=== PATIENT | female | born 1975 | race Caucasian/White ===

== ENCOUNTER 2019-11-09 21:47 | Emergency (ER) | payer BC, SELFPAY ==
--- NOTE | ~2019-11-09 | XR_ITS ---
EXAMINATION: XR chest 1V portable DATE: 11/09/2019 22:25 INDICATION: Shortness of breath and cough. TECHNIQUE: A single frontal view of the chest was obtained. COMPARISON: Chest 2 views 03/18/2019 FINDINGS: Again seen is mild elevation of right hemidiaphragm. No pleural effusion or pneumothorax. T he heart size is normal. IMPRESSION: 1. No acute cardiopulmonary disease. Reviewed, dictated and finalized at location A.
--- NOTE | 2019-11-09 21:53 | ECG_ITS ---
Measurements Intervals [place] Rate: 99 P: 42 KS: 193 QRS: -17 QRSD: 97 T: 31 QT: 341 QTc: 439 Interpretive Statements SINUS RHYTHM BORDERLINE R WAVE PROGRESSION, ANTERIOR LEADS INFERIOR INFARCT, AGE INDETERMINATE ABNORMAL ECG Electronically Signed On 11-10-2019 7:06:44 CDT by Vargas Mo D.O.
--- NOTE | 2019-11-09 21:58 | ED.SOB ---
HPI - SOB/Dyspnea General Chief Complaint: Shortness of Breath/Dyspnea Stated Complaint: SOB/DIARRHEA/COUGH. ST Time Seen by Provider: 11/09/19 21:52 History of Present Illness HPI Narrative: 44 yo female w/ COPD, Morbid obesity presents by private vehicle for SOB. She says that she has been more short of breath than usual for the past several days. She reports that this happens about once a year due to bronchitis. She says that she only came in because her employer was concerned that she may have COVID-19. She does have mild pain with breathing, but says this is not unusual. No fever, cough, nausea, sick contacts Related Data Allergies Allergy/AdvReac Type Severity Reaction Status Date / Time capsaicin Allergy Severe Difficulty Verified 11/09/19 21:49 Breathing; swelling adhesive Allergy Mild unknown Verified 11/09/19 21:49 prochlorperazine Allergy Mild unknown Verified 11/09/19 21:49 Review of Systems Review of Systems: All systems reviewed & are unremarkable except as noted in HPI and below Constitutional: Constitutional: Denies chills, Denies fever(s) and Denies weakness ENT: Denies sore throat Cardiovascular: Cardiovascular: Reports chest pain and Denies radiating jaw, neck or arm pain Respiratory: Respiratory: Reports dyspnea Gastrointestinal: Gastrointestinal: Denies abdominal pain PMFSH Past Medical History Medical History COPD (chronic obstructive pulmonary disease) Lymphedema Tobacco abuse Surgical History Surgical History Hx of tonsillectomy Family History Family History Father Hypertension Family history of elevated blood lipids Family history of cardiovascular disease Cerebrovascular accident Malignant neoplasm of prostate Sibling Hypertension Family history of coronary artery disease Diabetes mellitus Family history of elevated blood lipids Family history of cardiovascular disease Mother Hypertension Family history of elevated blood lipids Social History Social History Smoking status: Heavy tobacco smoker Second hand tobacco smoke exposure: No Smoking end date: 05/28/09 Alcohol intake: never Exam Const: General: no acute distress, alert and ill appearing Nutritional Appearance: obese morbidly obese Orientation/consciousness: patient oriented x3 HENMT: Head: normal to inspection Resp: Effort & Inspection: tachypneic Auscultation: clear to auscultation bilaterally Cardio: Rate: regular rate Rhythm: regular rhythm Skin: General skin exam: normal color Neuro: General: patient oriented x3, moves all extremities and no focal motor deficits Speech: normal speech Extrem: General: edema bilateral Course Vital Signs Vital signs: Vital Signs Temperature 37.1 C 11/09/19 22:03 Pulse Rate 95 11/09/19 22:03 Respiratory Rate 20 11/09/19 22:03 Blood Pressure 154/90 H 11/09/19 22:03 Pulse Oximetry 96 11/09/19 22:03 Temperature 37.1 C 11/10/19 00:19 Pulse Rate 88 11/10/19 00:46 Respiratory Rate 20 11/10/19 00:46 Blood Pressure 137/83 11/10/19 00:19 Pulse Oximetry 95 11/10/19 00:19 MDM - SOB/Dyspnea MDM Narrative Medical decision making narrative: She becomes significantly short of breath with exertion. O2 saturation stays above 90. No improvement with nebulizer. She says that she does not have any interest in staying in the hospital. COVID test collected. No infiltrate seen on x-ray, although difficult to read due to body habitus. Lab Data Attestation: I reviewed the patient's lab results. Result diagrams: 11/09/19 22:43 11/09/19 22:43 Labs: Lab Results 11/09/19 11/09/19 11/10/19 Range/Units 22:43 22:43 01:52 WBC 12.8 H (4.5-10.0) K/mm3 RBC 4.41
[2019-11-09 22:03] VITALS: BP 154/90; PULSE 95; RESP 20; TEMP 37.1; O2SAT 96
[2019-11-09 22:48] LABS: Basophils Absolute Auto 0.1 K/mm3 (0.0-0.1); Basophils Percent Auto 0.5 % (0.2-1.2); Eosinophils Absolute Auto 0.1 K/mm3 (0-0.3); Eosinophils Percent Auto 1.1 % (0-4.4); Hematocrit 39.4 % (37.0-47.0); Hemoglobin 12.6 g/dL (12.0-15.0); Immature Granulocyte Absolute 0.06 K/mm3 (0.00-0.031); Immature Granulocyte Percent A 0.5 % (0-0.5); Lymphocytes Percent Auto 15.7 % (18.3-44.2); Mean Corpuscular Hemoglobin 28.6 pg (26-34); Mean Corpuscular Volume 89.3 fl (80-100); Mean Platelet Volume 9.6 fl (7.4-10.4); Monocytes Absolute Auto 0.7 K/mm3 (0.1-0.6); Monocytes Percent Auto 5.7 % (2.6-8.5); Neutrophils Absolute Auto 9.8 K/mm3 (1.3-6.7); Neutrophils Percent Auto 76.5 % (45.5-73.1); Platelet Count Result 267 k/mm3 (150-375); Red Blood Count 4.41 M/mm3 (4.2-5.4); Red Cell Distribution Width 13.3 % (11.5-14.5); White Blood Count 12.8 K/mm3 (4.5-10.0)
[2019-11-09 22:59] LABS: Blood Urea Nitrogen 16 mg/dL (7-17); Calcium 9.1 mg/dL (8.4-10.2); Carbon Dioxide 30 mmol/L (22-30); Chloride 101 mmol/L (98-107); Estimated CRCL calculation 166 ml/min; Estimated Glomerular Filt Rate > 60; Glucose 134 mg/dL (65-105); Potassium 3.9 mmol/L (3.4-5.0); Sodium 138 mmol/L (137-145)
[2019-11-09 23:11] LABS: NT Pro B Type Natriuretic Pept 33 PG/ML (5-100); Troponin I < 0.012 ng/mL (0.000-0.034)
[2019-11-10 00:19] VITALS: BP 137/83; PULSE 82; RESP 22; TEMP 37.1; O2SAT 95
[2019-11-10 00:21] VITALS: PULSE 87
[2019-11-10 00:40] VITALS: PULSE 94; RESP 22
[2019-11-10] MEDS: ALBUTEROL SULFATE NEB 2.5 MG/0.5 ML INH 5 MG INHALATION (00:40)
[2019-11-10 00:46] VITALS: PULSE 88; RESP 20
[2019-11-10 11:10] LABS: SARS-CoV-2 RNA PCR Negative
== END 2019-11-10 01:55 | disposition home or self-care (01) ==
PROVIDERS: Emergency Provider Emergency Medicine; PCP Family Medicine
DX: R06.00 Dyspnea, unspecified (principal); Z20.828 Contact with and (suspected) exposure to other viral communicable diseases; E66.01 Morbid (severe) obesity due to excess calories; Z68.45 Body mass index [BMI] 70 or greater, adult; Z87.891 Personal history of nicotine dependence; R94.31 Abnormal electrocardiogram [ECG] [EKG]
CPT/HCPCS: 36415; 71045; 80048; 83880; 84484; 85025; 87635; 93005; 94640; 99284; C9803; U0003

== ENCOUNTER 2019-11-19 13:09 | Outpatient (CLI) | payer BC, SELFPAY ==
--- NOTE | ~2019-11-19 | XR_ITS ---
XR chest 2V DATE: 11/19/2019 13:30 INDICATION: Shortness of breath TECHNIQUE: PA and lateral views COMPARISON: 11/09/2019 portable AP chest 12/08/2009 AP and lateral chest FINDINGS: There is chronic mild elevation of right leaf of the diaphragm. Normal heart size. No hilar or mediastinal enlargement. No pulmonary infiltrate or consolidation, pleural effusion or pulmonary vascular congestion or pneumo thorax. IMPRESSION: No active cardiopulmonary disease Reviewed, dictated and finalized at location A.
== END 2019-11-19 13:10 | disposition home or self-care (01) ==
PROVIDERS: PCP Family Medicine; Visit Provider Physician Assistant
DX: R06.02 Shortness of breath (principal)
CPT/HCPCS: 71046

== ENCOUNTER 2020-01-19 12:47 | Inpatient (IN) | payer BC, SELFPAY ==
--- NOTE | ~2020-01-19 | XR_ITS ---
EXAMINATION: XR hip LT 2V w AP pelvis DATE: 01/19/2020 14:02 INDICATION: Left hip cellulitis TECHNIQUE: Anteroposterior view of the pelvis and anteroposterior and frog-leg lateral views of the l eft hip were obtained. COMPARISON: None. FINDINGS: Alignment is normal. No fracture or suspected avascular necrosis. Mild bilateral hip osteoarthritis. No evident subcutaneous gas. No cortical erosions or periosteal reaction. IMPRESSION: 1. Mild bilateral hip osteoarthritis. Reviewed, dictated and finalized at location A.
[2020-01-19 12:51] VITALS: BP 140/101; PULSE 117; RESP 22; TEMP 37.3; O2SAT 97
[2020-01-19] MEDS: KETOROLAC (*BKC) 60 MG/2 ML VIAL IM (14:12)
--- NOTE | 2020-01-19 14:12 | ED.LOWEXIN ---
HPI - Extremity Injury (Lower) General Chief Complaint: Extremity Injury, Lower Stated Complaint: L HIP PAIN/CELLULITIS Time Seen by Provider: 01/19/20 13:25 Source: patient Mode of arrival: ambulatory Limitations: no limitations History of Present Illness HPI Narrative: This is a 44 year old female that presents to the ER for left hip redness and swelling x 3 days. Associated with fever. She was started on Bactrim and keflex, has only taken one dose due to the nausea and vomiting it caused. Denies decreased ROM. Related Data Home Medications Medication Instructions Recorded Confirmed albuterol sulfate 90 mcg/actuation 1 inhalation INHALATION Q4H 11/12/19 11/12/19 aerosol inhaler fluticasone 250 mcg-salmeterol 50 1 inhalation INHALATION BID 11/12/19 11/12/19 mcg/dose blistr powdr for inhalation spironolactone 50 mg tablet 50 mg PO DAILY 11/12/19 11/12/19 cephalexin [Keflex] 250 mg PO Q12H 01/19/20 Allergies Allergy/AdvReac Type Severity Reaction Status Date / Time capsaicin Allergy Severe Difficulty Verified 11/19/19 12:01 Breathing; swelling adhesive Allergy Mild unknown Verified 11/19/19 12:01 prochlorperazine Allergy Mild unknown Verified 11/19/19 12:01 Review of Systems Review of Systems: Narrative: CONSTITUTIONAL: Reports fever GASTROINTESTINAL: Reports nausea, vomiting SKIN: Reports rash All systems reviewed & are unremarkable except as noted in HPI and below PMFSH Social History Social History (Updated 01/19/20 @ 14:17 by Jada Cummings PA-C) Smoking status: Heavy tobacco smoker Second hand tobacco smoke exposure: No Smoking end date: 05/28/09 Alcohol intake: never Substance use: never Gender identity (if verbalized by the patient): Female Exam Narrative: Exam Narrative: GENERAL: Well-appearing, well-nourished, and in no acute distress. HEAD: Normocephalic, atraumatic. EYES: EOMI. CHEST: Clear to auscultation. No respiratory distress. No wheezes rales or rhonchi HEART: Regular rate and rhythm. No murmur heard. Normal peripheral pulses. BACK: No midline spinal tenderness EXTREMITIES: Normal range of motion. No edema. SKIN: Warm, dry. Moderate edema and erythema overlying the left hip/upper thigh laterally. No central fluctuance to suggest abscess NEURO: No focal deficits. Alert and oriented x3. PSYCH: Normal mood and affect Course Consultations Consultation #1: Spoke with hospitalist about patient and workup who accepts admission Date: 01/19/20 Time: 16:59 Vital Signs Vital signs: Vital Signs Temperature 99.2 F 01/19/20 12:51 Pulse Rate 117 H 01/19/20 12:51 Respiratory Rate 22 H 01/19/20 12:51 Blood Pressure 140/101 H 01/19/20 12:51 Pulse Oximetry 97 01/19/20 12:51 Temperature 99.2 F 01/19/20 12:51 Pulse Rate 98 01/19/20 15:44 Respiratory Rate 18 01/19/20 15:44 Blood Pressure 159/99 H 01/19/20 15:44 Pulse Oximetry 100 01/19/20 15:44 MDM - Extremity Injury (Lower) MDM Narrative Medical decision making narrative: Patient presents to the ER for cellulitis of the left thigh. Afebrile upon arrival. Was tachycardic which improved with IV fluids. CBC with leukocytosis to 15. ESR and CRP are elevated. Lactic acid is normal. Hemoglobin A1C is normal. No central fluctuance to suggest abscess. Patient given IV fluids and first dose of antibiotic in the ED. Blood cultures sent. Will be admitted for further IV antibiotics. Spoke with hospitalist about patient and workup who accepts admission Lab Data Attestation: I reviewed the patient's lab results. Result diagrams: 01/19/20 14:18 01/19/20 14:18 Labs: Lab Results 01/19/20 01/19/20 01/19/20 Range/Units 14:15 14:18 14:18 WBC 15.0 H (4.5-10.0) K/mm3 RBC 3.99 L (4.2-5.4) M/mm3 Hgb 11.4 L (12.0-15.0) g/dL Hct 35.1 L (37.0-47.0) % MCV 88.0 (80-100) fl MCH 28.6 (26-34) pg MCHC 32.5 (32-36) g/dl RDW 14.6 H (11.5-14.
[2020-01-19 14:31] LABS: Basophils Absolute Auto 0.1 K/mm3 (0.0-0.1); Basophils Percent Auto 0.4 % (0.2-1.2); Eosinophils Percent Auto 0.1 % (0-4.4); Hematocrit 35.1 % (37.0-47.0); Hemoglobin 11.4 g/dL (12.0-15.0); Immature Granulocyte Absolute 0.15 K/mm3 (0.00-0.031); Lymphocytes Absolute Auto 1.09 K/mm3 (0.9-3.2); Lymphocytes Percent Auto 7.3 % (18.3-44.2); Mean Corpuscular HGB Conc 32.5 g/dl (32-36); Mean Corpuscular Hemoglobin 28.6 pg (26-34); Mean Platelet Volume 10.4 fl (7.4-10.4); Monocytes Absolute Auto 1.1 K/mm3 (0.1-0.6); Monocytes Percent Auto 7.5 % (2.6-8.5); Neutrophils Absolute Auto 12.6 K/mm3 (1.3-6.7); Neutrophils Percent Auto 83.7 % (45.5-73.1); Platelet Count Result 207 k/mm3 (150-375); Red Blood Count 3.99 M/mm3 (4.2-5.4); Red Cell Distribution Width 14.6 % (11.5-14.5)
[2020-01-19 14:41] LABS: Lactic Acid Reflex 1.1 mmol/L (0.7-2.1)
[2020-01-19 15:01] LABS: Anion Gap 7 mmol/L (8-16); Blood Urea Nitrogen 8 mg/dL (7-17); Carbon Dioxide 30 mmol/L (22-30); Chloride 100 mmol/L (98-107); Erythrocyte Sedimentation Rate 96 mm/hr (0-20); Estimated CRCL calculation 149 ml/min; Estimated Glomerular Filt Rate > 60; Glucose 130 mg/dL (65-105); Potassium 3.9 mmol/L (3.4-5.0); Sodium 137 mmol/L (137-145)
[2020-01-19 15:42] LABS: Hemoglobin A1C 5.7 % (<5.7)
[2020-01-19 15:44] VITALS: BP 159/99; PULSE 98; RESP 18; O2SAT 100
[2020-01-19] MEDS: SODIUM CHLORIDE 0.9% IV 1,000 ML 999 ML IV CONT (15:46)
[2020-01-19 15:56] LABS: CRP 34.1 mg/dL (<1.0)
[2020-01-19 19:18] VITALS: BP 118/75; PULSE 78; RESP 16; O2SAT 100
--- NOTE | 2020-01-19 19:19 | PC.NURSE ---
REPORT TO VIGNESH FRIEDMAN AT THIS TIME. HE HAS ASSUMED PT CARE.
--- NOTE | 2020-01-19 19:30 | PM.IMHP ---
H&P: HPI History of Present Illness Date/Time: 01/19/20 19:30 Chief complaint: Left thigh infection. Narrative: Erin Mccann is a 44-year-old female smoker with morbid obesity, obstructive sleep apnea, COPD, and chronic lipedema and lymphedema who presented to the emergency department earlier today via private vehicle from home for evaluation of a left thigh infection. On Sunday she began feeling poorly while at work, and later in the evening she developed chills, rigors, and fever up to 102.9?. Some time that afternoon she noticed that the left lateral thigh seemed a bit sore, and when she woke on Sunday she had a large erythematous and edematous patch on the left thigh that was exquisitely tender to even light touch. She has also had nausea and vomiting for the past couple of days. She spoke with her primary care provider via phone last night and was prescribed Bactrim and Keflex, of which she has taken 1 dose of each. Today she went to see her primary doctor in the office, and was referred to the emergency department. She continues to have exquisite pain in the area with no significant alleviating factors. Her nausea and vomiting have improved. She has no history of multidrug resistant organisms. She denies injury and trauma to the area. Review of Systems Review of Systems: Narrative: Twelve systems were reviewed with pertinent positives and negatives as per HPI. She has a chronic cough that she attributes to her COPD. She cannot afford her inhalers but does have a nebulizer that she will use if needed. It sounds as though she gets short of breath even with minimal movement, which she attributes to her weight. She admits that she avoids doing hardly anything as she does not like to get up due to shortness of breath. She frequently wheezes and occasionally has a cough. She wears her CPAP at nighttime. She has chronic lower extremity edema, lymphedema, and lipedema. She was referred to [facility] after an EKG done as an outpatient showed evidence of possible old infarct however she did not go to the appointment. With further questioning, it sounds as though she will occasionally get chest pains but she blows these off and it does not seem as though she is interested in having a workup for that. No diarrhea or dysuria. No history of DVT. Except as documented, all other systems were reviewed and are negative. 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 Surgical History Surgical History (Updated 01/19/20 @ 22:33 by Hilda Cano PA-C) History of tonsillectomy Family History Family History Father Hypertension Family history of elevated blood lipids Family history of cardiovascular disease Cerebrovascular accident Malignant neoplasm of prostate Sibling Hypertension Family history of coronary artery disease Diabetes mellitus Family history of elevated blood lipids Family history of cardiovascular disease Mother Hypertension Family history of elevated blood lipids Social History Social History (Updated 01/19/20 @ 22:35 by Hilda Cano PA-C) Social History: Surrogate decision maker: Daria Mccann, . Code status: Full code. Smoking packs per day: 3 Smoking cigarettes per day: 60.0 Years smoked: 30 Smoking pack-years: 90.00 Smoking status: Current every day smoker Tobacco type: cigarettes Second hand tobacco smoke exposure: No Additional smoking assessment comments: Up to 3 ppd, now about 1.5 ppd on Chantix as of 01/19/2020. Alcohol intake: current Alcohol use details:
[2020-01-19 20:57] VITALS: BMI 80.8
[2020-01-19 20:58] VITALS: BP 145/83; PULSE 93; RESP 20; TEMP 37.4; O2SAT 97
--- NOTE | 2020-01-19 21:12 | ADMGEN ---
This patient, Erin Mccann, was admitted to Medical [facility]- at 2039. Patient/family oriented to hospital policies and general routines including ID bracelet, bed and alarms, visiting hours, pain management, procedures, bathroom and other care routines, personal items, smoking policy, room service/diet, and visiting hours. Valuables list has been completed. Information on how to activate the Rapid Response Team has been discussed. Patient/Family are encouraged to report perceived risks to care and to ask questions if they do not understand what they are told or what they should do.
[2020-01-19] MEDS: ACETAMINOPHEN 325 MG TABLET 650 MG PO (23:32)
[2020-01-19 23:51] VITALS: BP 130/65; PULSE 99; RESP 24; TEMP 37.6; O2SAT 94
[2020-01-19 23:55] VITALS: PULSE 94; RESP 24; O2SAT 97
[2020-01-20] MEDS: diphenhydrAMINE HCl CAP 25 MG CAPSULE 50 MG PO ×3 (00:21→23:03)
[2020-01-20] MEDS: ACETAMINOPHEN 325 MG TABLET 650 MG PO (05:54)
[2020-01-20 06:00] VITALS: BP 138/75; PULSE 81; RESP 22; TEMP 36.9; O2SAT 98
[2020-01-20 06:08] LABS: Hematocrit 32.2 % (37.0-47.0); Hemoglobin 10.3 g/dL (12.0-15.0); Mean Corpuscular Hemoglobin 28.4 pg (26-34); Mean Corpuscular Volume 88.7 fl (80-100); Mean Platelet Volume 10.4 fl (7.4-10.4); Platelet Count Result 213 k/mm3 (150-375); Red Blood Count 3.63 M/mm3 (4.2-5.4); Red Cell Distribution Width 14.6 % (11.5-14.5); White Blood Count 13.2 K/mm3 (4.5-10.0)
[2020-01-20 06:18] LABS: Anion Gap 8 mmol/L (8-16); Blood Urea Nitrogen 10 mg/dL (7-17); Carbon Dioxide 26 mmol/L (22-30); Chloride 100 mmol/L (98-107); Estimated CRCL calculation 167 ml/min; Estimated Glomerular Filt Rate > 60; Glucose 127 mg/dL (65-105); Potassium 3.2 mmol/L (3.4-5.0); Sodium 134 mmol/L (137-145)
[2020-01-20 09:11] VITALS: PULSE 84; RESP 22; O2SAT 96
[2020-01-20] MEDS: ENOXAPARIN 40 MG/0.4 ML SYRINGE SUB-Q (09:11)
[2020-01-20] MEDS: POTASSIUM CHLORIDE 20 MEQ TABLET 40 MEQ PO (09:11)
--- NOTE | 2020-01-20 09:58 | PM.IMPN ---
Progress Note: A&P Assessment and Plan (1) Sepsis: Qualifiers: Sepsis acute organ dysfunction status: without acute organ dysfunction Sepsis type: sepsis due to unspecified organism Qualified Code(s): A41.9 - Sepsis, unspecified organism Code(s): A41.9 - Sepsis, unspecified organism Status: Acute Assessment and Plan: Present on admission and supported by fever and leukocytosis in the setting of infection. Blood cultures pending with no growth to date. (2) Cellulitis of left thigh: Code(s): L03.116 - Cellulitis of left lower limb Status: Acute Assessment and Plan: Continue IV Ancef and vancomycin. She had mild hypersensitivity reaction to vancomycin last evening so today we pre-treated with Benadryl and slowed down rate of vanc infusion - no further rash or itching today. (3) Chronic obstructive pulmonary disease: Code(s): J44.9 - Chronic obstructive pulmonary disease, unspecified Status: Acute Assessment and Plan: Supportive care with PRN albuterol. (4) Obstructive sleep apnea on CPAP: Code(s): G47.33 - Obstructive sleep apnea (adult) (pediatric); Z99.89 - Dependence on other enabling machines and devices Status: Acute Assessment and Plan: CPAP. (5) Morbid obesity with BMI of 70 and over, adult: Code(s): E66.01 - Morbid (severe) obesity due to excess calories; Z68.45 - Body mass index (BMI) 70 or greater, adult Status: Acute Assessment and Plan: Healthy lifestyle is encouraged including attempts at weight loss. (6) Tobacco abuse: Code(s): Z72.0 - Tobacco use Status: Acute Assessment and Plan: Smoking cessation encouraged. Subjective Date/time seen: 01/20/20 09:30 Exam Narrative: Exam Narrative: General: Morbidly obese female resting sitting up in bed in no acute distress. HEENT: Normocephalic, EOMI, oral mucosa tacky. Cardiovascular: Distant heart sounds due to body habitus but rate and rhythm sound to be regular. Respiratory: Diminished breath sounds KENY due to body habitus. Non-labored breathing. Abdomen: Protuberant but soft, non-tender, non-distended, bowel sounds present. Skin: Warm and dry. Well-demarcated, large and irregularly shaped patch on the left lateral thigh which is erythematous, indurated, hot, and exquisitely tender to even light touch. No open wound, abscess, or obvious fluctuance. Extremities: Radial pulses 2+KENY. Difficulty palpating dorsal pulses due to size but feet are warm and well-perfused. Lower extremity edema ++ patient reports is at baseline due to lipedema and lymphedema. Neuro: No focal neurological deficits. Speech is clear. Objective Data Vital Signs Vital Signs: Last Vital Signs Temp 98.7 F 01/20/20 14:00 Pulse 88 01/20/20 14:00 Resp 16 01/20/20 14:00 BP 119/68 01/20/20 14:00 Pulse Ox 98 01/20/20 14:00 Intake/Output Intake/Output: Intake & Output 01/17/20 01/18/20 01/19/20 01/20/20 23:59 23:59 23:59 23:59 Intake Total 1100 575 Output Total 350 Balance 1100 225 Meds/Results Medications: Active Medications Generic Name Dose Route Start Last Admin Trade Name Freq PRN Reason Stop Dose Admin Acetaminophen 1,000 mg 01/20/20 09:55 Tylenol Tablet PO Q6H PRN Mild Pain (1-3) or Fever Albuterol 2.5 mg 01/20/20 02:34 Albuterol Sulf Neb 2.5 Mg/3 Ml INHALATION 02/19/20 02:35 Q6H PRN Shortness Of Breath Or Wheezing Diphenhydramine HCl 50 mg 01/20/20 10:30 Benadryl Cap PO Q12H NESS Enoxaparin Sodium 40 mg 01/20/20 09:00 01/20/20 09:11 Lovenox SUB-Q 40 mg DAILY NESS Administration Cefazolin Sodium 1 gm i
[2020-01-20 14:00] VITALS: BP 119/68; PULSE 88; RESP 16; TEMP 37.1; O2SAT 98
[2020-01-20 22:00] VITALS: BP 148/70; PULSE 95; RESP 22; TEMP 37.3; O2SAT 97
[2020-01-20] MEDS: ACETAMINOPHEN 325 MG TABLET 1000 MG PO (22:05)
[2020-01-21 06:00] VITALS: BP 149/78; PULSE 78; RESP 20; TEMP 36.7; O2SAT 96
[2020-01-21 06:35] LABS: Basophils Absolute Auto 0.1 K/mm3 (0.0-0.1); Basophils Percent Auto 0.7 % (0.2-1.2); Eosinophils Absolute Auto 0.1 K/mm3 (0-0.3); Eosinophils Percent Auto 0.7 % (0-4.4); Hematocrit 31.7 % (37.0-47.0); Immature Granulocyte Absolute 0.19 K/mm3 (0.00-0.031); Immature Granulocyte Percent A 1.7 % (0-0.5); Lymphocytes Absolute Auto 1.38 K/mm3 (0.9-3.2); Lymphocytes Percent Auto 12.5 % (18.3-44.2); Mean Corpuscular HGB Conc 31.5 g/dl (32-36); Mean Corpuscular Hemoglobin 28.3 pg (26-34); Mean Corpuscular Volume 89.8 fl (80-100); Mean Platelet Volume 10.3 fl (7.4-10.4); Monocytes Absolute Auto 1.1 K/mm3 (0.1-0.6); Monocytes Percent Auto 9.5 % (2.6-8.5); Neutrophils Absolute Auto 8.3 K/mm3 (1.3-6.7); Neutrophils Percent Auto 74.9 % (45.5-73.1); Platelet Count Result 226 k/mm3 (150-375); Red Blood Count 3.53 M/mm3 (4.2-5.4); Red Cell Distribution Width 14.8 % (11.5-14.5); White Blood Count 11.1 K/mm3 (4.5-10.0)
[2020-01-21 06:54] LABS: Anion Gap 6 mmol/L (8-16); Blood Urea Nitrogen 8 mg/dL (7-17); Calcium 8.3 mg/dL (8.4-10.2); Carbon Dioxide 29 mmol/L (22-30); Chloride 102 mmol/L (98-107); Estimated CRCL calculation 167 ml/min; Estimated Glomerular Filt Rate > 60; Glucose 142 mg/dL (65-105); Potassium 3.6 mmol/L (3.4-5.0); Sodium 137 mmol/L (137-145)
[2020-01-21] MEDS: ACETAMINOPHEN 500 MG TABLET 1000 MG PO ×2 (07:48→18:18)
[2020-01-21 08:00] VITALS: PULSE 78; RESP 20; O2SAT 96
[2020-01-21] MEDS: ENOXAPARIN 40 MG/0.4 ML SYRINGE SUB-Q (08:31)
--- NOTE | 2020-01-21 12:39 | PM.IMPN ---
Progress Note: A&P Assessment and Plan (1) Cellulitis of left thigh: Code(s): L03.116 - Cellulitis of left lower limb Status: Acute Assessment and Plan: Was being treated with IV Ancef and vancomycin. She had a hypersensitivity reaction to vancomycin even with benadryl and slowing rate. Little improvement. Will switch to IV ceftaroline this afternoon and monitor symptoms. (2) Sepsis: Qualifiers: Sepsis acute organ dysfunction status: without acute organ dysfunction Sepsis type: sepsis due to unspecified organism Qualified Code(s): A41.9 - Sepsis, unspecified organism Code(s): A41.9 - Sepsis, unspecified organism Status: Acute Assessment and Plan: Present on admission and supported by fever and leukocytosis in the setting of infection. Blood cultures pending with no growth to date. (3) Chronic obstructive pulmonary disease: Qualifiers: COPD type: unspecified COPD Qualified Code(s): J44.9 - Chronic obstructive pulmonary disease, unspecified Code(s): J44.9 - Chronic obstructive pulmonary disease, unspecified Status: Chronic Assessment and Plan: Supportive care with PRN albuterol. (4) Obstructive sleep apnea on CPAP: Code(s): G47.33 - Obstructive sleep apnea (adult) (pediatric); Z99.89 - Dependence on other enabling machines and devices Status: Chronic Assessment and Plan: CPAP. (5) Morbid obesity with BMI of 70 and over, adult: Code(s): E66.01 - Morbid (severe) obesity due to excess calories; Z68.45 - Body mass index (BMI) 70 or greater, adult Status: Chronic Assessment and Plan: Healthy lifestyle is encouraged including attempts at weight loss. (6) Tobacco abuse: Code(s): Z72.0 - Tobacco use Status: Chronic Assessment and Plan: Smoking cessation encouraged. Subjective Date/time seen: 01/21/20 1130 Interval history: Ms. Mccann is a 44yo F admitted for significant cellulitis to the left thigh. She notes no improvement in the pain/swelling/redness today. She denies chest pain. She admits feeling short of breath with standing and walking which she attributes to her weight and is unchanged. She is tolerating oral intake without nausea or vomiting. Review of Systems Review of Systems: Narrative: Twelve systems were reviewed with pertinent positives and negatives as per HPI. Exam Narrative: Exam Narrative: General: Morbidly obese female resting sitting up in bed in no acute distress. HEENT: Normocephalic, EOMI, oral mucosa tacky. Cardiovascular: Distant heart sounds due to body habitus but rate and rhythm sound regular. Respiratory: Diminished breath sounds KENY due to body habitus. Non-labored breathing. Abdomen: Protuberant but soft, non-tender, non-distended, bowel sounds present. Skin: Warm and dry. Well-demarcated, large and irregularly shaped patch on the left lateral thigh which is erythematous, indurated, hot, and exquisitely tender to even light touch. No open wound, abscess, or obvious fluctuance. Erythema is within the pen markings from yesterday but not much improved. More indurated than yesterday. Extremities: Radial pulses 2+KENY. Difficulty palpating dorsal pulses but feet are warm and well-perfused. Lower extremity edema ++ patient reports is at baseline due to lipedema and lymphedema, in fact she notes are a bit less swollen than her normal. Neuro: No focal neurological deficits. Speech is clear. Objective Data Vital Signs Vital Signs: Vital Signs - 24 hr 01/20/20 14:00 01/20/20 22:00 01/21/20 06:00 Temperature 98.7 F 99.1 F 98.0 F Pulse Rate 88 95 78 Respiratory Rate 16 22 H 20 Blood Pressure 119/6
[2020-01-21 14:29] VITALS: BP 124/77; PULSE 72; RESP 14; TEMP 36.7; O2SAT 98
[2020-01-21 22:00] VITALS: BP 139/78; PULSE 79; RESP 20; TEMP 36.8; O2SAT 96
[2020-01-22 05:29] VITALS: BP 139/78; PULSE 90; RESP 22; TEMP 36.6; O2SAT 92
[2020-01-22] MEDS: ACETAMINOPHEN 500 MG TABLET 1000 MG PO ×2 (05:36→16:41)
[2020-01-22 08:04] LABS: Estimated CRCL calculation 192 ml/min; Estimated Glomerular Filt Rate > 60
[2020-01-22 08:43] VITALS: PULSE 94; RESP 22; O2SAT 91
[2020-01-22] MEDS: ENOXAPARIN 40 MG/0.4 ML SYRINGE SUB-Q (08:43)
--- NOTE | 2020-01-22 09:45 | PM.IMPN ---
Progress Note: A&P Assessment and Plan (1) Cellulitis of left thigh: Code(s): L03.116 - Cellulitis of left lower limb Status: Acute Assessment and Plan: Was previously treated with IV Ancef and vancomycin. She had a hypersensitivity reaction to vancomycin even with benadryl and slowing rate. Switched to IV ceftaroline yesterday (day 2). Not responding well to IV abx - appreciate ID consultation. I have encouraged her to try positioning herself on her right side to help offload pressure from the site which may help promote healing. (2) Sepsis: Qualifiers: Sepsis acute organ dysfunction status: without acute organ dysfunction Sepsis type: sepsis due to unspecified organism Qualified Code(s): A41.9 - Sepsis, unspecified organism Code(s): A41.9 - Sepsis, unspecified organism Status: Acute Assessment and Plan: Present on admission and supported by fever and leukocytosis in the setting of infection. Blood cultures pending with no growth to date. (3) Chronic obstructive pulmonary disease: Qualifiers: COPD type: unspecified COPD Qualified Code(s): J44.9 - Chronic obstructive pulmonary disease, unspecified Code(s): J44.9 - Chronic obstructive pulmonary disease, unspecified Status: Chronic Assessment and Plan: Supportive care with PRN albuterol. No respiratory distress. (4) Obstructive sleep apnea on CPAP: Code(s): G47.33 - Obstructive sleep apnea (adult) (pediatric); Z99.89 - Dependence on other enabling machines and devices Status: Chronic Assessment and Plan: CPAP. (5) Morbid obesity with BMI of 70 and over, adult: Code(s): E66.01 - Morbid (severe) obesity due to excess calories; Z68.45 - Body mass index (BMI) 70 or greater, adult Status: Chronic Assessment and Plan: Healthy lifestyle is encouraged including attempts at weight loss. (6) Tobacco abuse: Code(s): Z72.0 - Tobacco use Status: Chronic Assessment and Plan: Smoking cessation encouraged. (7) Lymphedema: Code(s): I89.0 - Lymphedema, not elsewhere classified Status: Chronic Assessment and Plan: She experiences chronic lymphedema and lipedema for which she has followed with specialists in the past. She notes she does not go to lymphedema clinic or do her wraps any longer. Subjective Date/time seen: 01/22/20 09:30 Interval history: Ms. Mccann is a 44yo F admitted for significant cellulitis to the left thigh. Feeling the same as last 2 days except today she notes increased difficulty ambulating compared to yesterday, due to pain. She notes no improvement in the pain/swelling/redness today. She denies chest pain. She admits feeling short of breath with standing and walking which she attributes to her weight and is unchanged. She is tolerating oral intake without nausea or vomiting. Review of Systems Review of Systems: Narrative: Twelve systems were reviewed with pertinent positives and negatives as per HPI. Exam Narrative: Exam Narrative: General: Morbidly obese female resting sitting up in bed in no acute distress. HEENT: Normocephalic, EOMI, oral mucosa tacky. Cardiovascular: Distant heart sounds due to body habitus but rate and rhythm sound regular. Respiratory: Clear to auscultation anteriorly KENY. Non-labored breathing. Abdomen: Protuberant but soft, non-tender, non-distended, bowel sounds present. Skin: Warm and dry. Well-demarcated, large and irregularly shaped patch on the proximal left lateral thigh which is erythematous, indurated, hot, and exquisitely tender to even light touch. No open wound, abscess, o
[2020-01-22 14:00] VITALS: BP 132/74; PULSE 85; RESP 20; TEMP 36.2; O2SAT 97
[2020-01-22 21:50] VITALS: PULSE 87; O2SAT 96
[2020-01-22 22:46] VITALS: BP 151/89; PULSE 89; RESP 20; TEMP 36.6; O2SAT 97
[2020-01-23 04:18] VITALS: BP 149/88; PULSE 100; RESP 19; TEMP 36.9; O2SAT 95
[2020-01-23] MEDS: ACETAMINOPHEN 500 MG TABLET 1000 MG PO ×2 (04:27→16:37)
[2020-01-23 07:00] LABS: Basophils Absolute Auto 0.1 K/mm3 (0.0-0.1); Eosinophils Absolute Auto 0.1 K/mm3 (0-0.3); Hematocrit 32.8 % (37.0-47.0); Hemoglobin 10.2 g/dL (12.0-15.0); Immature Granulocyte Absolute 0.73 K/mm3 (0.00-0.031); Immature Granulocyte Percent A 6.1 % (0-0.5); Lymphocytes Absolute Auto 1.45 K/mm3 (0.9-3.2); Lymphocytes Percent Auto 12.2 % (18.3-44.2); Mean Corpuscular HGB Conc 31.1 g/dl (32-36); Mean Corpuscular Hemoglobin 27.7 pg (26-34); Mean Corpuscular Volume 89.1 fl (80-100); Monocytes Absolute Auto 1.1 K/mm3 (0.1-0.6); Monocytes Percent Auto 9.2 % (2.6-8.5); Neutrophils Absolute Auto 8.4 K/mm3 (1.3-6.7); Neutrophils Percent Auto 70.5 % (45.5-73.1); Platelet Count Result 296 k/mm3 (150-375); Red Blood Count 3.68 M/mm3 (4.2-5.4); Red Cell Distribution Width 14.8 % (11.5-14.5); White Blood Count 11.9 K/mm3 (4.5-10.0)
[2020-01-23] MEDS: ENOXAPARIN 40 MG/0.4 ML SYRINGE SUB-Q (08:40)
[2020-01-23 10:09] LABS: Alanine Aminotransferase 23 U/L (4-35); Albumin Level 3.6 g/dL (3.5-5.1); Alkaline Phosphatase 93 U/L (38-126); Anion Gap 9 mmol/L (8-16); Aspartate Amino Transferase 24 U/L (14-36); Bilirubin,Total 0.4 mg/dL (0.2-1.3); Blood Urea Nitrogen 9 mg/dL (7-17); Calcium 8.7 mg/dL (8.4-10.2); Carbon Dioxide 29 mmol/L (22-30); Chloride 100 mmol/L (98-107); Estimated CRCL calculation 167 ml/min; Estimated Glomerular Filt Rate > 60; Glucose 178 mg/dL (65-105); Magnesium 2.1 mg/dL (1.6-2.3); Sodium 138 mmol/L (137-145)
--- NOTE | 2020-01-23 13:44 | PM.IMPN ---
Progress Note: A&P Assessment and Plan (1) Cellulitis of left thigh: Code(s): L03.116 - Cellulitis of left lower limb Status: Acute Assessment and Plan: Was previously treated with IV Ancef and vancomycin. She had a hypersensitivity reaction to vancomycin even with benadryl and slowing rate. Switched to IV ceftaroline (day 3). Not responding as well as epected to IV abx - appreciate ID consultation. I have encouraged her to try positioning herself on her right side to help offload pressure from the site which may help promote healing. There are two fluid-filled areas now, can collect wound culture if these would spontaneously drain. (2) Sepsis: Qualifiers: Sepsis acute organ dysfunction status: without acute organ dysfunction Sepsis type: sepsis due to unspecified organism Qualified Code(s): A41.9 - Sepsis, unspecified organism Code(s): A41.9 - Sepsis, unspecified organism Status: Acute Assessment and Plan: Present on admission and supported by fever and leukocytosis in the setting of infection. Blood cultures pending with no growth to date. (3) Chronic obstructive pulmonary disease: Qualifiers: COPD type: unspecified COPD Qualified Code(s): J44.9 - Chronic obstructive pulmonary disease, unspecified Code(s): J44.9 - Chronic obstructive pulmonary disease, unspecified Status: Chronic Assessment and Plan: Supportive care with PRN albuterol. No respiratory distress. (4) Obstructive sleep apnea on CPAP: Code(s): G47.33 - Obstructive sleep apnea (adult) (pediatric); Z99.89 - Dependence on other enabling machines and devices Status: Chronic Assessment and Plan: CPAP. (5) Morbid obesity with BMI of 70 and over, adult: Code(s): E66.01 - Morbid (severe) obesity due to excess calories; Z68.45 - Body mass index (BMI) 70 or greater, adult Status: Chronic Assessment and Plan: Healthy lifestyle is encouraged including attempts at weight loss. (6) Tobacco abuse: Code(s): Z72.0 - Tobacco use Status: Chronic Assessment and Plan: Smoking cessation encouraged. (7) Lymphedema: Code(s): I89.0 - Lymphedema, not elsewhere classified Status: Chronic Assessment and Plan: She experiences chronic lymphedema and lipedema for which she has followed with specialists in the past. She notes she does not go to lymphedema clinic or do her wraps any longer. Subjective Date/time seen: 01/23/20 1245 Interval history: Ms. Mccann is a 44yo F admitted for cellulitis to the left thigh. Feels about the same, not much improvement. New today are some fluid-filled areas to the cellulitic region. Her pain is the same. She notes a cough today, nonproductive. She denies chest pain. She admits feeling short of breath with standing and walking which she attributes to her weight and is unchanged. She is tolerating oral intake without nausea or vomiting. Exam Narrative: Exam Narrative: General: Morbidly obese female resting sitting up in bedside chair in no acute distress. HEENT: Normocephalic, EOMI, oral mucosa moist. Cardiovascular: Distant heart sounds due to body habitus but rate and rhythm sound regular. Respiratory: Clear to auscultation anteriorly KENY. Non-labored breathing. Abdomen: Protuberant but soft, non-tender, non-distended, bowel sounds present. Skin: Warm and dry. Well-demarcated, large and irregularly shaped patch on the proximal left lateral thigh which is erythematous, indurated, hot, and exquisitely tender to even light touch. Slightly less red than days prior. 2 new fluid-filled blisters. Dustin
[2020-01-23 14:00] VITALS: BP 147/96; PULSE 84; RESP 18; TEMP 37.1; O2SAT 96
--- NOTE | 2020-01-23 18:23 | WPDINFPN2 ---
Progress Note: A&P Additional Plan Patient was seen in consult dictated. Thank you. Subjective Date/time seen: 01/23/20 18:23 Objective Data Vital Signs Vital Signs: Vital Signs - 24 hr 01/22/20 21:50 01/22/20 22:46 01/23/20 04:18 Temperature 36.6 C 36.9 C Pulse Rate 87 89 100 Respiratory Rate 20 19 Blood Pressure 151/89 H 149/88 H Pulse Oximetry 96 97 95 Intake/Output Intake/Output: Intake & Output 01/20/20 01/21/20 01/22/20 01/23/20 23:59 23:59 23:59 23:59 Intake Total 2765 3015 2180 1732 Output Total 350 600 Balance 2415 2415 2180 1732 Meds/Results Medications: Active Medications Generic Name Dose Route Start Last Admin Trade Name Freq PRN Reason Stop Dose Admin Acetaminophen 1,000 mg 01/20/20 22:43 01/23/20 16:37 Tylenol Tablet PO 1,000 mg Q6H PRN Administration Mild Pain (1-3) or Fever Albuterol 2.5 mg 01/20/20 02:34 Albuterol Sulf Neb 2.5 Mg/3 Ml INHALATION 02/19/20 02:35 Q6H PRN Shortness Of Breath Or Wheezing Benzonatate 100 mg 01/23/20 13:45 Tessalon Perles PO TID PRN Cough Enoxaparin Sodium 40 mg 01/20/20 09:00 01/23/20 08:40 Lovenox SUB-Q 40 mg DAILY NESS Administration Ceftaroline Fosamil 600 mg in 50 mls @ 50 mls/hr 01/21/20 12:15 01/23/20 09:36 Teflaro 600 Mg/D5w 50 Ml IVPB Infused Q12HR NESS Infusion Radiology Results: ITS Impressions Hip/Pelvis X-Ray 01/19/20 14:12 IMPRESSION: 1. Mild bilateral hip osteoarthritis. Labs Labs: Laboratory Results - last 24 hr 01/23/20 01/23/20 06:22 09:29 WBC 11.9 H RBC 3.68 L Hgb 10.2 L Hct 32.8 L MCV 89.1 MCH 27.7 MCHC 31.1 L RDW 14.8 H Plt Count 296 MPV 10.0 Immature Gran % (Auto) 6.1 H Neut % (Auto) 70.5 Lymph % (Auto) 12.2 L Kleberg % (Auto) 9.2 H Eos % (Auto) 1.0 Baso % (Auto) 1.0 Lymph # (Auto) 1.45 Kleberg # (Auto) 1.1 H Eos # (Auto) 0.1 Baso # (Auto) 0.1 Abs Immat Gran (auto) 0.73 H Absolute Neuts (auto) 8.4 H Absolute Nucleated RBC 0.0 Nucleated RBC % 0.0 Sodium 138 Potassium 4.0 Chloride 100 Carbon Dioxide 29 Anion Gap 9 BUN 9 Creatinine 0.70 Estim Creat Clear Calc 167 Estimated GFR > 60 Glucose 178 H Calcium 8.7 Magnesium 2.1 Total Bilirubin 0.4 AST 24 ALT 23 Alkaline Phosphatase 93 Total Protein 7.0 Albumin 3.6
[2020-01-23 21:13] VITALS: BP 145/84; PULSE 79; RESP 16; TEMP 36.6; O2SAT 98
[2020-01-23 23:15] VITALS: PULSE 83; O2SAT 98
--- NOTE | 2020-01-24 00:21 | CONS_ITS ---
DATE OF CONSULTATION: 01/23/2020 REQUESTING PHYSICIAN: Michael Chapman M.D. REASON FOR CONSULTATION: Left thigh cellulitis, slow improvement. HISTORY OF PRESENT ILLNESS: This is a 44-year-old female, who is morbidly obese with history of tobacco abuse disorder, COPD, obstructive sleep apnea, chronic bilateral lower extremity lymphedema, presented to the emergency room with approximately 2-3 days history of progressive fever and chills with left thigh induration. Apparently on last Sunday, she felt like she is coming down with the flu associated with chills and rigors and nausea and vomiting. By Sunday, she was seen in the emergency room with a temperature of up to 102 and was found to have left lateral thigh cellulitis with a central area of induration. She was started on vancomycin and developed a rash and subsequently switched to ceftaroline. Prior to admission, she was tried on oral antibiotics of Keflex and Bactrim, which she took 1 dose prior to coming to the hospital. I was requested to see her for further antibiotic management. The patient is currently on ceftaroline. PAST MEDICAL HISTORY: Chronic obstructive pulmonary lung disease, Ellen-Danlos syndrome, lymphedema, morbidly obese with BMI over 70, obstructive sleep apnea, tobacco abuse disorder. PAST SURGICAL HISTORY: Tonsillectomy. FAMILY HISTORY: Positive for hypertension. REVIEW OF SYSTEMS: Twelve system was reviewed with pertinent positive as per HPI. MEDICATIONS: Medications at home: 1. Albuterol. 2. Spironolactone. 3. Cephalexin. 4. Bactrim. Medication in the hospital: She is currently on, 1. Ceftaroline day #3. 2. Enoxaparin. 3. Albuterol. 4. Tylenol. ALLERGIES: SHE IS ALLERGIC TO ADHESIVES, CAPSAICIN, AND PROCHLORPERAZINE. PHYSICAL EXAMINATION: VITAL SIGNS: Temperature is 96.9, pulse rate of 100, respiratory rate of 19, blood pressure of 149/88. She has remained afebrile since admission. HEAD AND NECK: Normocephalic, atraumatic. Neck is supple. There is no JVD. No lymphadenopathy. LUNGS: Good bilateral air entry. No rales, no wheeze. CARDIOVASCULAR SYSTEM: Positive S1, positive S2. No S3, S4. No murmur. ABDOMEN: Positive bowel sounds. Nontender. No organomegaly. No mass. EXTREMITIES: Bilateral lower extremity chronic lymphedema. SKIN: Left thigh, a large circumferential 10 x 12 cm erythema, well demarcated with 2 central areas of bullae formation and 1 area possible early induration with loculation. NEUROLOGICAL: She is alert, awake, oriented. No focal deficit. LABORATORY EXAMINATION: White count is 11, hemoglobin of 10, hematocrit of 32, platelet of 296, segmental of 70%. Sodium is 138, potassium of 4.0, chloride of 100, bicarb of 29, BUN 9, creatinine 0.7, AST of 24, ALT of 23. COVID-19 was negative. Blood cultures x2 sets are negative. X-ray of the pelvis, no evidence of subcutaneous gas. No cortical erosion, mild osteoarthritis. Chest x-ray, no acute cardiopulmonary process. ASSESSMENT AND PLAN: 1. Left thigh cellulitis with well-demarcated raised erythema with bullae formation. Streptococcus versus staphylococcal infection including toxin producing. At this point, the patient had an allergic reaction to vancomycin and has been on ceftaroline for day 3. I anticipate slow improvement. She is afebrile. White count is trending down. Blood cultures are negative. Continue IV antibiotics through the weekend. If no improvement, may consider surgical evaluation for potential I and D of the central area of induration, which I assume will improve with IV antibiotic therapy. 2. Obstructive sleep apnea. 3. Morbidly obese with BMI of 70. 4. Elevated blood sugar. May consider hemoglobin A1c. 5. Elevated blood pressure with no history of hypertens
[2020-01-24] MEDS: BENZONATATE 100 MG CAPSULE PO ×2 (03:03→18:33)
[2020-01-24 04:50] VITALS: BP 153/88; PULSE 76; RESP 12; TEMP 36.4; O2SAT 98
[2020-01-24 06:18] LABS: Basophils Absolute Auto 0.1 K/mm3 (0.0-0.1); Eosinophils Absolute Auto 0.2 K/mm3 (0-0.3); Eosinophils Percent Auto 1.5 % (0-4.4); Hemoglobin 10.3 g/dL (12.0-15.0); Immature Granulocyte Absolute 0.94 K/mm3 (0.00-0.031); Immature Granulocyte Percent A 8.1 % (0-0.5); Lymphocytes Absolute Auto 1.56 K/mm3 (0.9-3.2); Lymphocytes Percent Auto 13.4 % (18.3-44.2); Mean Corpuscular HGB Conc 31.2 g/dl (32-36); Mean Corpuscular Volume 89.7 fl (80-100); Mean Platelet Volume 9.8 fl (7.4-10.4); Monocytes Absolute Auto 0.9 K/mm3 (0.1-0.6); Monocytes Percent Auto 7.9 % (2.6-8.5); Neutrophils Absolute Auto 7.9 K/mm3 (1.3-6.7); Neutrophils Percent Auto 68.1 % (45.5-73.1); Platelet Count Result 320 k/mm3 (150-375); Red Blood Count 3.68 M/mm3 (4.2-5.4); Red Cell Distribution Width 14.9 % (11.5-14.5); White Blood Count 11.6 K/mm3 (4.5-10.0)
[2020-01-24] MEDS: ENOXAPARIN 40 MG/0.4 ML SYRINGE SUB-Q (09:28)
[2020-01-24 09:30] VITALS: O2SAT 98
[2020-01-24] MEDS: ACETAMINOPHEN 500 MG TABLET 1000 MG PO (12:05)
[2020-01-24 14:00] VITALS: BP 140/82; PULSE 80; RESP 16; TEMP 37; O2SAT 99
--- NOTE | 2020-01-24 19:17 | PM.IMPN ---
Progress Note: A&P Assessment and Plan (1) Cellulitis of left thigh: Code(s): L03.116 - Cellulitis of left lower limb Status: Acute Assessment and Plan: Was previously treated with IV Ancef and vancomycin. She had a hypersensitivity reaction to vancomycin even with benadryl and slowing rate. Switched to IV ceftaroline (day 4). Slow improvement. I have encouraged her to try positioning herself on her right side to help offload pressure from the site which may help promote healing. Bullae opened today and wound culture collected. Appreciate ID recommendations - noted plan to continue Ceftaroline through the weekend and by Sunday, consider surgical consultation if no improvement for possible I&D. (2) Sepsis: Qualifiers: Sepsis acute organ dysfunction status: without acute organ dysfunction Sepsis type: sepsis due to unspecified organism Qualified Code(s): A41.9 - Sepsis, unspecified organism Code(s): A41.9 - Sepsis, unspecified organism Status: Acute Assessment and Plan: Present on admission and supported by fever and leukocytosis in the setting of infection. Blood cultures pending with no growth to date. (3) Chronic obstructive pulmonary disease: Qualifiers: COPD type: unspecified COPD Qualified Code(s): J44.9 - Chronic obstructive pulmonary disease, unspecified Code(s): J44.9 - Chronic obstructive pulmonary disease, unspecified Status: Chronic Assessment and Plan: Supportive care with PRN albuterol. No respiratory distress. (4) Obstructive sleep apnea on CPAP: Code(s): G47.33 - Obstructive sleep apnea (adult) (pediatric); Z99.89 - Dependence on other enabling machines and devices Status: Chronic Assessment and Plan: CPAP. (5) Morbid obesity with BMI of 70 and over, adult: Code(s): E66.01 - Morbid (severe) obesity due to excess calories; Z68.45 - Body mass index (BMI) 70 or greater, adult Status: Chronic Assessment and Plan: Healthy lifestyle is encouraged including attempts at weight loss. (6) Tobacco abuse: Code(s): Z72.0 - Tobacco use Status: Chronic Assessment and Plan: Smoking cessation encouraged. (7) Lymphedema: Code(s): I89.0 - Lymphedema, not elsewhere classified Status: Chronic Assessment and Plan: She experiences chronic lymphedema and lipedema for which she has followed with specialists in the past. She notes she does not go to lymphedema clinic or do her wraps any longer. Subjective Date/time seen: 01/24/20 1245 Interval history: Ms. Mccann is a 44yo F admitted for cellulitis to the left thigh. Feels about the same, finally seeing some improvement today. The bullae have coalesced into one fluid-filled area and noted to be spontaneously draining this afternoon. Nonproductive cough still today, sinus congestion. No chest pain. Tolerating oral intake without nausea or vomiting. Patient seen in follow up with her , Daria, at the bedside. Review of Systems Review of Systems: Narrative: Twelve systems were reviewed with pertinent positives and negatives as per HPI. Exam Narrative: Exam Narrative: General: Morbidly obese female resting sitting up in bedside chair in no acute distress. HEENT: Normocephalic, EOMI, oral mucosa moist. Cardiovascular: Distant heart sounds due to body habitus but rate and rhythm sound regular. Respiratory: Clear to auscultation anteriorly KENY. Non-labored breathing. Abdomen: Protuberant but soft, non-tender, non-distended, bowel sounds present. Skin: Warm and dry. Well-demarcated, large and irregularly shaped patch on the p
[2020-01-24 20:50] VITALS: BP 149/70; PULSE 85; RESP 16; TEMP 36.4; O2SAT 96
[2020-01-24] MEDS: FLUTICASONE PROPIONATE 0.05% NA SPR 16 GM BTL (*BKC) 1 SPRAY NASAL (20:59)
[2020-01-24 21:26] LABS: Basophils Absolute Auto 0.1 K/mm3 (0.0-0.1); Eosinophils Absolute Auto 0.2 K/mm3 (0-0.3); Eosinophils Percent Auto 1.4 % (0-4.4); Hematocrit 37.4 % (37.0-47.0); Hemoglobin 11.6 g/dL (12.0-15.0); Immature Granulocyte Absolute 1.17 K/mm3 (0.00-0.031); Lymphocytes Absolute Auto 1.98 K/mm3 (0.9-3.2); Lymphocytes Percent Auto 15.3 % (18.3-44.2); Mean Corpuscular Volume 90.3 fl (80-100); Mean Platelet Volume 9.6 fl (7.4-10.4); Monocytes Absolute Auto 1.1 K/mm3 (0.1-0.6); Monocytes Percent Auto 8.6 % (2.6-8.5); Neutrophils Absolute Auto 8.4 K/mm3 (1.3-6.7); Neutrophils Percent Auto 64.7 % (45.5-73.1); Platelet Count Result 367 k/mm3 (150-375); Red Blood Count 4.14 M/mm3 (4.2-5.4); Red Cell Distribution Width 15.1 % (11.5-14.5)
[2020-01-24 21:41] LABS: Hemoglobin A1C 5.7 % (<5.7)
[2020-01-24 23:35] VITALS: PULSE 85; O2SAT 96
[2020-01-25 04:47] VITALS: BP 151/79; PULSE 82; RESP 14; TEMP 36.2; O2SAT 97
[2020-01-25 06:29] LABS: Anion Gap 7 mmol/L (8-16); Blood Urea Nitrogen 13 mg/dL (7-17); CRP 6.1 mg/dL (<1.0); Calcium 8.5 mg/dL (8.4-10.2); Carbon Dioxide 28 mmol/L (22-30); Chloride 102 mmol/L (98-107); Estimated CRCL calculation 192 ml/min; Estimated Glomerular Filt Rate > 60; Glucose 133 mg/dL (65-105); Magnesium 2.1 mg/dL (1.6-2.3); Potassium 4.4 mmol/L (3.4-5.0); Sodium 137 mmol/L (137-145)
[2020-01-25] MEDS: ENOXAPARIN 40 MG/0.4 ML SYRINGE SUB-Q (08:51)
[2020-01-25] MEDS: FLUTICASONE PROPIONATE 0.05% NA SPR 16 GM BTL (*BKC) 1 SPRAY NASAL ×2 (08:52→22:36)
--- NOTE | 2020-01-25 10:55 | PM.IMPN ---
Progress Note: A&P Assessment and Plan (1) Cellulitis of left thigh: Code(s): L03.116 - Cellulitis of left lower limb Status: Acute Assessment and Plan: Was previously treated with IV Ancef and vancomycin. She had a hypersensitivity reaction to vancomycin even with benadryl and slowing rate. Switched to IV ceftaroline monotherapy (day 5). Slow improvement. I have encouraged her to try positioning herself on her right side to help offload pressure from the site which may help promote healing. Bullae opened and wound culture collected. Appreciate ID recommendations - noted plan to continue Ceftaroline through the weekend and by tomorrow, consider surgical consultation if no improvement for possible I&D. She is showing improvement this weekend though. (2) Sepsis: Qualifiers: Sepsis acute organ dysfunction status: without acute organ dysfunction Sepsis type: sepsis due to unspecified organism Qualified Code(s): A41.9 - Sepsis, unspecified organism Code(s): A41.9 - Sepsis, unspecified organism Status: Acute Assessment and Plan: Present on admission and supported by fever and leukocytosis in the setting of infection. Blood cultures are negative. (3) Chronic obstructive pulmonary disease: Qualifiers: COPD type: unspecified COPD Qualified Code(s): J44.9 - Chronic obstructive pulmonary disease, unspecified Code(s): J44.9 - Chronic obstructive pulmonary disease, unspecified Status: Chronic Assessment and Plan: Supportive care with PRN albuterol. No respiratory distress. (4) Obstructive sleep apnea on CPAP: Code(s): G47.33 - Obstructive sleep apnea (adult) (pediatric); Z99.89 - Dependence on other enabling machines and devices Status: Chronic Assessment and Plan: CPAP. (5) Morbid obesity with BMI of 70 and over, adult: Code(s): E66.01 - Morbid (severe) obesity due to excess calories; Z68.45 - Body mass index (BMI) 70 or greater, adult Status: Chronic Assessment and Plan: Healthy lifestyle is encouraged including attempts at weight loss. (6) Tobacco abuse: Code(s): Z72.0 - Tobacco use Status: Chronic Assessment and Plan: Smoking cessation encouraged. (7) Lymphedema: Code(s): I89.0 - Lymphedema, not elsewhere classified Status: Chronic Assessment and Plan: She experiences chronic lymphedema and lipedema for which she has followed with specialists in the past. She notes she does not go to lymphedema clinic or do her wraps any longer. Subjective Date/time seen: 01/25/20 10:45 Interval history: Ms. Mccann is a 44yo F admitted for cellulitis to the left thigh. Slowly making some improvement. Bullae have spontaneously drained. Nasal congestion continues today. Slept okay. No chest pain. SOB is the same. Tolerating oral intake without nausea or vomiting. Review of Systems Review of Systems: Narrative: Twelve systems were reviewed with pertinent positives and negatives as per HPI. Exam Narrative: Exam Narrative: General: Morbidly obese female resting sitting up in bedside chair in no acute distress. HEENT: Normocephalic, EOMI, oral mucosa moist. Cardiovascular: Distant heart sounds due to body habitus but rate and rhythm sound regular. Respiratory: Clear to auscultation anteriorly KENY. Non-labored breathing. Abdomen: Protuberant but soft, non-tender, non-distended, bowel sounds present. Skin: Warm and dry. Well-demarcated, large and irregularly shaped patch on the proximal left lateral thigh which is erythematous, indurated, hot, and tender to even light touch. Slightly less re
[2020-01-25] MEDS: guaiFENesin 12 HR 600 MG TABCR PO ×2 (12:17→22:36)
[2020-01-25 13:38] VITALS: BP 142/70; PULSE 86; RESP 16; TEMP 36.8; O2SAT 98
[2020-01-25 20:13] VITALS: BP 146/56; PULSE 96; RESP 16; TEMP 37.1; O2SAT 91
[2020-01-25] MEDS: ACETAMINOPHEN 500 MG TABLET 1000 MG PO (22:43)
[2020-01-26 01:32] VITALS: PULSE 96; O2SAT 97
[2020-01-26 05:34] VITALS: BP 107/88; PULSE 85; RESP 18; TEMP 36.6; O2SAT 95
[2020-01-26 06:25] LABS: Basophils Absolute Auto 0.1 K/mm3 (0.0-0.1); Basophils Percent Auto 0.5 % (0.2-1.2); Eosinophils Absolute Auto 0.2 K/mm3 (0-0.3); Eosinophils Percent Auto 1.7 % (0-4.4); Hematocrit 34.1 % (37.0-47.0); Hemoglobin 10.6 g/dL (12.0-15.0); Immature Granulocyte Absolute 1.18 K/mm3 (0.00-0.031); Immature Granulocyte Percent A 9.8 % (0-0.5); Lymphocytes Absolute Auto 1.69 K/mm3 (0.9-3.2); Mean Corpuscular HGB Conc 31.1 g/dl (32-36); Mean Corpuscular Hemoglobin 28.3 pg (26-34); Mean Corpuscular Volume 90.9 fl (80-100); Mean Platelet Volume 9.6 fl (7.4-10.4); Monocytes Absolute Auto 0.9 K/mm3 (0.1-0.6); Monocytes Percent Auto 7.5 % (2.6-8.5); Neutrophils Percent Auto 66.5 % (45.5-73.1); Platelet Count Result 321 k/mm3 (150-375); Red Blood Count 3.75 M/mm3 (4.2-5.4); Red Cell Distribution Width 14.9 % (11.5-14.5); White Blood Count 12.1 K/mm3 (4.5-10.0)
[2020-01-26 06:35] LABS: Estimated CRCL calculation 167 ml/min; Estimated Glomerular Filt Rate > 60
[2020-01-26 06:36] LABS: Anion Gap 7 mmol/L (8-16); Blood Urea Nitrogen 15 mg/dL (7-17); Calcium 8.8 mg/dL (8.4-10.2); Carbon Dioxide 28 mmol/L (22-30); Chloride 101 mmol/L (98-107); Estimated CRCL calculation 167 ml/min; Estimated Glomerular Filt Rate > 60; Glucose 133 mg/dL (65-105); Potassium 4.3 mmol/L (3.4-5.0); Sodium 136 mmol/L (137-145)
[2020-01-26 07:09] LABS: Hypochromasia 1+ (NORMAL); Platelet Estimate Adequate (Adequate); Stomatocytes 1+ (NORMAL)
[2020-01-26] MEDS: ENOXAPARIN 40 MG/0.4 ML SYRINGE SUB-Q (08:55)
[2020-01-26] MEDS: guaiFENesin 12 HR 600 MG TABCR PO ×2 (08:55→20:26)
[2020-01-26] MEDS: FLUTICASONE PROPIONATE 0.05% NA SPR 16 GM BTL (*BKC) 1 SPRAY NASAL ×2 (08:55→20:27)
--- NOTE | 2020-01-26 12:23 | PM.IMPN ---
Progress Note: A&P Assessment and Plan (1) Cellulitis of left thigh: Code(s): L03.116 - Cellulitis of left lower limb Status: Acute Assessment and Plan: Initially on arrival treated with IV Ancef and vancomycin. She had a hypersensitivity reaction to vancomycin even with benadryl and slowing rate. Switched to IV ceftaroline monotherapy (day 6). Slow improvement. I have encouraged her to try positioning herself on her right side to help offload pressure from the site which may help promote healing. Bullae opened and wound culture collected, no specific pathogen identified. Blood cx negative. Appreciate ID recommendations. (2) Sepsis: Qualifiers: Sepsis acute organ dysfunction status: without acute organ dysfunction Sepsis type: sepsis due to unspecified organism Qualified Code(s): A41.9 - Sepsis, unspecified organism Code(s): A41.9 - Sepsis, unspecified organism Status: Acute Assessment and Plan: Present on admission and supported by fever and leukocytosis in the setting of infection. Blood cultures are negative. (3) Chronic obstructive pulmonary disease: Qualifiers: COPD type: unspecified COPD Qualified Code(s): J44.9 - Chronic obstructive pulmonary disease, unspecified Code(s): J44.9 - Chronic obstructive pulmonary disease, unspecified Status: Chronic Assessment and Plan: Supportive care with PRN albuterol. No respiratory distress. (4) Obstructive sleep apnea on CPAP: Code(s): G47.33 - Obstructive sleep apnea (adult) (pediatric); Z99.89 - Dependence on other enabling machines and devices Status: Chronic Assessment and Plan: CPAP. (5) Morbid obesity with BMI of 70 and over, adult: Code(s): E66.01 - Morbid (severe) obesity due to excess calories; Z68.45 - Body mass index (BMI) 70 or greater, adult Status: Chronic Assessment and Plan: Healthy lifestyle is encouraged including attempts at weight loss. (6) Tobacco abuse: Code(s): Z72.0 - Tobacco use Status: Chronic Assessment and Plan: Smoking cessation encouraged. (7) Lymphedema: Code(s): I89.0 - Lymphedema, not elsewhere classified Status: Chronic Assessment and Plan: She experiences chronic lymphedema and lipedema for which she has followed with specialists in the past. She notes she does not go to lymphedema clinic or do her wraps any longer. Subjective Date/time seen: 01/26/20 1030 Interval history: Ms. Mccann is a 44yo F admitted for cellulitis to the left thigh. Slowly making some improvement. Bullae have spontaneously drained. Nasal congestion today, she thinks mucinex is helping. Slept okay. No chest pain. Short of breath with standing and walking which she attributes to her weight and notes is at her baseline. Tolerating oral intake without nausea or vomiting. Review of Systems Review of Systems: Narrative: Twelve systems were reviewed with pertinent positives and negatives as per HPI. Exam Narrative: Exam Narrative: General: Morbidly obese female resting sitting up in bedside chair in no acute distress. HEENT: Normocephalic, EOMI, oral mucosa moist. Cardiovascular: Distant heart sounds due to body habitus but rate and rhythm sound regular. Respiratory: Clear to auscultation anteriorly KENY. Non-labored breathing. Abdomen: Protuberant but soft, non-tender, non-distended, bowel sounds present. Skin: Warm and dry. Well-demarcated, large and irregularly shaped patch on the proximal left lateral thigh which is erythematous and tender to touch. Less red and less indurated than days prior. Bullae today sponta
--- NOTE | 2020-01-26 12:41 | WPDINFPN2 ---
Progress Note: A&P Assessment and Plan (1) Cellulitis of left thigh: Code(s): L03.116 - Cellulitis of left lower limb Status: Acute Assessment and Plan: 1. Thigh cellulitis, improving status 2. Morbid obesity 3. Hyperglycemia, A1C in normal range 4. Vancomycin allergy with hives REC Ceftaroline # 6, continue. Superficial swab cultures are unrevealing. Subjective Date/time seen: 01/26/20 12:41 Interval history: feels some better. Knows of no preexisting trauma Exam Narrative: Exam Narrative: afebrile Const: General: no acute distress Other: massive obeisty Resp: Effort & Inspection: normal respiratory effort Auscultation: clear to auscultation bilaterally Cardio: Rate: regular rate Rhythm: regular rhythm Heart sounds: Gallop heart sound present GI: GI Palp: Yes Soft to palpation and No Tenderness to palpation present (GI) Skin: General skin exam: normal color and no rashes or lesions noted Other: unroofed bulla L posterior thigh, no warmth mild erythema Objective Data Vital Signs Vital Signs: Vital Signs - 24 hr 01/25/20 13:38 01/25/20 20:13 01/26/20 01:32 Temperature 36.8 C 37.1 C Pulse Rate 86 96 96 Respiratory Rate 16 16 Blood Pressure 142/70 H 146/56 H Pulse Oximetry 98 91 97 01/26/20 05:34 Temperature 36.6 C Pulse Rate 85 Respiratory Rate 18 Blood Pressure 107/88 Pulse Oximetry 95 Intake/Output Intake/Output: Intake & Output 01/23/20 01/24/20 01/25/20 01/26/20 23:59 23:59 23:59 23:59 Intake Total 2482 2160 2850 770 Output Total 1800 800 Balance 2482 360 2050 770 Meds/Results Medications: Active Medications Generic Name Dose Route Start Last Admin Trade Name Freq PRN Reason Stop Dose Admin Acetaminophen 1,000 mg 01/20/20 22:43 01/25/20 22:43 Tylenol Tablet PO 1,000 mg Q6H PRN Administration Mild Pain (1-3) or Fever Albuterol 2.5 mg 01/20/20 02:34 Albuterol Sulf Neb 2.5 Mg/3 Ml INHALATION 02/19/20 02:35 Q6H PRN Shortness Of Breath Or Wheezing Benzonatate 100 mg 01/23/20 13:45 01/24/20 18:33 Tessalon Perles PO 100 mg TID PRN Administration Cough Enoxaparin Sodium 40 mg 01/20/20 09:00 01/26/20 08:55 Lovenox SUB-Q 40 mg DAILY NESS Administration Fluticasone Propionate 1 spray 01/24/20 21:00 01/26/20 08:55 Flonase 0.05% Nasal [place] NASAL 1 spray Q12HR NESS Administration Guaifenesin 600 mg 01/25/20 11:45 01/26/20 08:55 Mucinex 12 Hr Tab PO 600 mg Q12HR NESS Administration Ceftaroline Fosamil 600 mg in 50 mls @ 50 mls/hr 01/21/20 12:15 01/26/20 09:55 Teflaro 600 Mg/D5w 50 Ml IVPB Infused Q12HR NESS Infusion Radiology Results: ITS Impressions Hip/Pelvis X-Ray 01/19/20 14:12 IMPRESSION: 1. Mild bilateral hip osteoarthritis. Labs Labs: Laboratory Results - last 24 hr 01/26/20 01/26/20 01/26/20 06:08 06:08 06:08 WBC 12.1 H RBC 3.75 L Hgb 10.6 L Hct 34.1 L MCV 90.9 MCH 28.3 MCHC 31.1 L RDW 14.9 H Plt Count 321 MPV 9.6 Immature Gran % (Auto) 9.8 H Neut % (Auto) 66.5 Lymph % (Auto) 14.0 L [place] % (Auto) 7.5 Eos % (Auto) 1.7 Baso % (Auto) 0.5 Lymph # (Auto) 1.69 [place] # (Auto) 0.9 H Eos # (Auto) 0.2 Baso # (Auto) 0.1 Abs Immat Gran (auto) 1.18 H Absolute Neuts (auto) 8.0 H Absolute Nucleated RBC 0.0 Nucleated RBC % 0.0 Platelet Estimate Adequate Hypochromasia 1+ Stomatocytes 1+ Sodium 136 L Potassium 4.3 Chloride 101 Carbon Dioxide 28 Anion Gap 7 L BUN 15 Creatinine 0.70 0.70 Estim Creat Clear Calc 167 167 Estimated GFR > 60 > 60 Glucose 133 H Calcium 8.8 Magnesium 2.0
[2020-01-26 14:00] VITALS: BP 137/76; PULSE 52; RESP 16; TEMP 36.2; O2SAT 92
[2020-01-26] MEDS: ACETAMINOPHEN 500 MG TABLET 1000 MG PO (16:33)
[2020-01-26 21:50] VITALS: PULSE 83; O2SAT 96
[2020-01-26 22:00] VITALS: BP 137/77; PULSE 79; RESP 20; TEMP 36.1; O2SAT 98
[2020-01-27 06:00] VITALS: BP 141/67; PULSE 79; RESP 20; TEMP 36.1; O2SAT 93
[2020-01-27 06:51] LABS: Basophils Absolute Auto 0.1 K/mm3 (0.0-0.1); Eosinophils Absolute Auto 0.2 K/mm3 (0-0.3); Eosinophils Percent Auto 1.8 % (0-4.4); Hemoglobin 10.3 g/dL (12.0-15.0); Immature Granulocyte Absolute 1.08 K/mm3 (0.00-0.031); Immature Granulocyte Percent A 9.5 % (0-0.5); Lymphocytes Absolute Auto 1.63 K/mm3 (0.9-3.2); Lymphocytes Percent Auto 14.3 % (18.3-44.2); Mean Corpuscular HGB Conc 30.3 g/dl (32-36); Mean Corpuscular Hemoglobin 27.5 pg (26-34); Mean Corpuscular Volume 90.9 fl (80-100); Mean Platelet Volume 9.9 fl (7.4-10.4); Monocytes Absolute Auto 0.8 K/mm3 (0.1-0.6); Monocytes Percent Auto 6.8 % (2.6-8.5); Neutrophils Absolute Auto 7.6 K/mm3 (1.3-6.7); Neutrophils Percent Auto 66.6 % (45.5-73.1); Platelet Count Result 319 k/mm3 (150-375); Red Blood Count 3.74 M/mm3 (4.2-5.4); Red Cell Distribution Width 14.9 % (11.5-14.5); White Blood Count 11.4 K/mm3 (4.5-10.0)
[2020-01-27 07:32] LABS: Hypochromasia 1+ (NORMAL); Platelet Estimate Adequate (Adequate)
[2020-01-27] MEDS: guaiFENesin 12 HR 600 MG TABCR PO ×2 (08:38→20:41)
[2020-01-27] MEDS: ENOXAPARIN 40 MG/0.4 ML SYRINGE SUB-Q (08:38)
[2020-01-27] MEDS: FLUTICASONE PROPIONATE 0.05% NA SPR 16 GM BTL (*BKC) 1 SPRAY NASAL ×2 (08:39→20:41)
--- NOTE | 2020-01-27 11:49 | WPDINFPN2 ---
Progress Note: A&P Assessment and Plan (1) Cellulitis of left thigh: Code(s): L03.116 - Cellulitis of left lower limb Status: Acute Assessment and Plan: 1. Thigh cellulitis, exam and symptoms indicate near resolution in active infection, and she now has post infectious inflammatory response 2. Morbid obesity 3. Hyperglycemia, A1C in normal range 4. Vancomycin allergy with hives REC Ceftaroline # 7, recheck CRP and convert to oral therapy such as Doxycycline tomorrow if CRP has declined further. Subjective Date/time seen: 01/27/20 11:49 Interval history: + drainage of clear fluid Exam Narrative: Exam Narrative: afebrile Const: General: no acute distress Eyes: General: appearance normal, both eyes and all related structures Resp: Effort & Inspection: normal respiratory effort Auscultation: clear to auscultation bilaterally Cardio: Rate: regular rate Rhythm: regular rhythm Heart sounds: no murmurs GI: Inspection: non-distended GI Palp: Yes Soft to palpation and No Tenderness to palpation present (GI) Skin: Other: erythema is receding and less intense, +mildly tender, serous fluid is weeping at site of former bullae Objective Data Vital Signs Vital Signs: Vital Signs - 24 hr 01/26/20 14:00 01/26/20 21:50 01/26/20 22:00 Temperature 36.2 C L 36.1 C L Pulse Rate 52 L 83 79 Respiratory Rate 16 20 Blood Pressure 137/76 137/77 Pulse Oximetry 92 96 98 01/27/20 06:00 Temperature 36.1 C L Pulse Rate 79 Respiratory Rate 20 Blood Pressure 141/67 H Pulse Oximetry 93 Intake/Output Intake/Output: Intake & Output 01/24/20 01/25/20 01/26/20 01/27/20 23:59 23:59 23:59 23:59 Intake Total 2160 2850 2059 920 Output Total 1800 800 Balance 360 2049 2059 920 Meds/Results Medications: Active Medications Generic Name Dose Route Start Last Admin Trade Name Freq PRN Reason Stop Dose Admin Acetaminophen 1,000 mg 01/20/20 22:43 01/26/20 16:33 Tylenol Tablet PO 1,000 mg Q6H PRN Administration Mild Pain (1-3) or Fever Albuterol 2.5 mg 01/20/20 02:34 Albuterol Sulf Neb 2.5 Mg/3 Ml INHALATION 02/19/20 02:35 Q6H PRN Shortness Of Breath Or Wheezing Benzonatate 100 mg 01/23/20 13:45 01/24/20 18:33 Tessalon Perles PO 100 mg TID PRN Administration Cough Enoxaparin Sodium 40 mg 01/20/20 09:00 01/27/20 08:38 Lovenox SUB-Q 40 mg DAILY NESS Administration Fluticasone Propionate 1 spray 01/24/20 21:00 01/27/20 08:39 Flonase 0.05% Nasal [place] NASAL 1 spray Q12HR NESS Administration Guaifenesin 600 mg 01/25/20 11:45 01/27/20 08:38 Mucinex 12 Hr Tab PO 600 mg Q12HR NESS Administration Ceftaroline Fosamil 600 mg in 50 mls @ 50 mls/hr 01/21/20 12:15 01/27/20 09:39 Teflaro 600 Mg/D5w 50 Ml IVPB Infused Q12HR NESS Infusion Radiology Results: ITS Impressions Hip/Pelvis X-Ray 01/19/20 14:12 IMPRESSION: 1. Mild bilateral hip osteoarthritis. Labs Labs: Laboratory Results - last 24 hr 01/27/20 05:54 WBC 11.4 H RBC 3.74 L Hgb 10.3 L Hct 34.0 L MCV 90.9 MCH 27.5 MCHC 30.3 L RDW 14.9 H Plt Count 319 MPV 9.9 Immature Gran % (Auto) 9.5 H Neut % (Auto) 66.6 Lymph % (Auto) 14.3 L [place] % (Auto) 6.8 Eos % (Auto) 1.8 Baso % (Auto) 1.0 Lymph # (Auto) 1.63 [place] # (Auto) 0.8 H Eos # (Auto) 0.2 Baso # (Auto) 0.1 Abs Immat Gran (auto) 1.08 H Absolute Neuts (auto) 7.6 H Absolute Nucleated RBC 0.0 Nucleated RBC % 0.0 Platelet Estimate Adequate Hypochromasia 1+
[2020-01-27 14:00] VITALS: BP 142/72; PULSE 90; RESP 18; TEMP 36; O2SAT 97
--- NOTE | 2020-01-27 15:54 | P.PNINF_ITS ---
Subjective Date/time seen: 01/27/20 15:54 Interval history: left hip pain. Review of Systems Review of Systems: All systems reviewed & are unremarkable except as noted in HPI and below Integumentary/Breasts: Comments: Left hip erythema improved. Objective Data Vital Signs Vital Signs: Vital Signs - 24 hr 01/26/20 21:50 01/26/20 22:00 01/27/20 06:00 Temperature 36.1 C L 36.1 C L Pulse Rate 83 79 79 Respiratory Rate 20 20 Blood Pressure 137/77 141/67 H Pulse Oximetry 96 98 93 01/27/20 14:00 Temperature 36.0 C L Pulse Rate 90 Respiratory Rate 18 Blood Pressure 142/72 H Pulse Oximetry 97 Intake/Output Intake/Output: Intake & Output 01/24/20 01/25/20 01/26/20 01/27/20 23:59 23:59 23:59 23:59 Intake Total 2160 2850 2060 1280 Output Total 1800 800 Balance 360 2050 2060 1280 Meds/Results Medications: Active Medications Generic Name Dose Route Start Last Admin Trade Name Freq PRN Reason Stop Dose Admin Acetaminophen 1,000 mg 01/20/20 22:43 01/26/20 16:33 Tylenol Tablet PO 1,000 mg Q6H PRN Administration Mild Pain (1-3) or Fever Albuterol 2.5 mg 01/20/20 02:34 Albuterol Sulf Neb 2.5 Mg/3 Ml INHALATION 02/19/20 02:35 Q6H PRN Shortness Of Breath Or Wheezing Benzonatate 100 mg 01/23/20 13:45 01/24/20 18:33 Tessalon Perles PO 100 mg TID PRN Administration Cough Enoxaparin Sodium 40 mg 01/20/20 09:00 01/27/20 08:38 Lovenox SUB-Q 40 mg DAILY NESS Administration Fluticasone Propionate 1 spray 01/24/20 21:00 01/27/20 08:39 Flonase 0.05% Nasal [place] NASAL 1 spray Q12HR NESS Administration Guaifenesin 600 mg 01/25/20 11:45 01/27/20 08:38 Mucinex 12 Hr Tab PO 600 mg Q12HR NESS Administration Ceftaroline Fosamil 600 mg in 50 mls @ 50 mls/hr 01/21/20 12:15 01/27/20 09:39 Teflaro 600 Mg/D5w 50 Ml IVPB Infused Q12HR NESS Infusion Radiology Results: ITS Impressions Hip/Pelvis X-Ray 01/19/20 14:12 IMPRESSION: 1. Mild bilateral hip osteoarthritis. Labs Labs: Laboratory Results - last 24 hr 01/27/20 05:54 WBC 11.4 H RBC 3.74 L Hgb 10.3 L Hct 34.0 L MCV 90.9 MCH 27.5 MCHC 30.3 L RDW 14.9 H Plt Count 319 MPV 9.9 Immature Gran % (Auto) 9.5 H Neut % (Auto) 66.6 Lymph % (Auto) 14.3 L [place] % (Auto) 6.8 Eos % (Auto) 1.8 Baso % (Auto) 1.0 Lymph # (Auto) 1.63 [place] # (Auto) 0.8 H Eos # (Auto) 0.2 Baso # (Auto) 0.1 Abs Immat Gran (auto) 1.08 H Absolute Neuts (auto) 7.6 H Absolute Nucleated RBC 0.0 Nucleated RBC % 0.0 Platelet Estimate Adequate Hypochromasia 1+
--- NOTE | 2020-01-27 16:30 | PM.IMPN ---
Progress Note: A&P Assessment and Plan (1) Cellulitis of left thigh: Code(s): L03.116 - Cellulitis of left lower limb Status: Acute Assessment and Plan: -----admitted on 01/18 and initially started on Ancef and vancomycin but did not tolerate the vancomycin well even with Benadryl and slowing the rate. She was switched to ceftaroline (day 7) and has been doing well. Her erythema is better but now it is draining. We will let those continue to drain and I will ask wound care to see if to see if they have any additional recommendations. CRP greatly improved and WBC midly elevated. Blood cultures negative. If CRP better tomorrow, may transition to oral therapy and d/c. (2) Sepsis: Qualifiers: Sepsis acute organ dysfunction status: without acute organ dysfunction Sepsis type: sepsis due to unspecified organism Qualified Code(s): A41.9 - Sepsis, unspecified organism Code(s): A41.9 - Sepsis, unspecified organism Status: Acute Assessment and Plan: -----Present on admission and supported by fever and leukocytosis in the setting of infection as stated above. Blood cultures are negative. (3) Chronic obstructive pulmonary disease: Qualifiers: COPD type: unspecified COPD Qualified Code(s): J44.9 - Chronic obstructive pulmonary disease, unspecified Code(s): J44.9 - Chronic obstructive pulmonary disease, unspecified Status: Chronic Assessment and Plan: -----Supportive care with PRN albuterol. No respiratory distress. (4) Obstructive sleep apnea on CPAP: Code(s): G47.33 - Obstructive sleep apnea (adult) (pediatric); Z99.89 - Dependence on other enabling machines and devices Status: Chronic Assessment and Plan: ----Continue home CPAP (5) Morbid obesity with BMI of 70 and over, adult: Code(s): E66.01 - Morbid (severe) obesity due to excess calories; Z68.45 - Body mass index (BMI) 70 or greater, adult Status: Chronic Assessment and Plan: -----Healthy lifestyle is encouraged. Pt would benefit from weight loss surgery. (6) Tobacco abuse: Code(s): Z72.0 - Tobacco use Status: Chronic Assessment and Plan: ----Smoking cessation encouraged. (7) Lymphedema: Code(s): I89.0 - Lymphedema, not elsewhere classified Status: Chronic Assessment and Plan: -----She experiences chronic lymphedema and lipedema for which she has followed with specialists in the past. She notes she does not go to lymphedema clinic or do her wraps any longer. She understands this makes her high risk of recurrence of cellulitis Time Spent With Patient Time with patient: 25 - 35 minutes Subjective Date/time seen: 01/27/20 16:30 Interval history: Pt is a morbidly obese 44-year-old female here for cellulitis. Patient states that the erythema has improved but is now starting to drain. No real pain in the area just discomfort. She had chills before admission but no chills now. She is eating and drinking well. She denies chest pain, shortness of breath, fevers, chills, or abdominal pain. Review of Systems Review of Systems: All systems reviewed & are unremarkable except as noted in HPI and below Exam Narrative: Exam Narrative: General: Overweight patient resting comfortably on the couch in no acute distress HEENT: normocephalic Neck: supple Neuro: Alert and oriented x4 CV:RRR Resp:CTA Abd: Soft, non distended. No pain to palpation. Positive bowel sounds Extremities: Erythema to the lateral thigh within the demarcated lines with improvement. There is an area on the inferior aspect that is starting to drain yellow purulent fluid. Patient has significant lymphedema bilaterally Objective Data Vital Signs Vital Signs: Vital Signs - 24 hr 01/26/20 21:50 01/26/20 22:00 01/27/20 06:00 Temperature 97 F L 97 F L Pulse Rate 83 79 79 Respiratory Rate 20 20 Blood Pressure
[2020-01-27 19:44] VITALS: BP 145/76; PULSE 89; RESP 16; TEMP 36.2; O2SAT 98
[2020-01-27 22:40] VITALS: PULSE 80; O2SAT 96
[2020-01-28 06:09] LABS: Hematocrit 33.6 % (37.0-47.0); Hemoglobin 10.6 g/dL (12.0-15.0); Mean Corpuscular HGB Conc 31.5 g/dl (32-36); Mean Corpuscular Hemoglobin 28.5 pg (26-34); Mean Corpuscular Volume 90.3 fl (80-100); Mean Platelet Volume 9.7 fl (7.4-10.4); Platelet Count Result 317 k/mm3 (150-375); Red Blood Count 3.72 M/mm3 (4.2-5.4); Red Cell Distribution Width 14.7 % (11.5-14.5); White Blood Count 11.5 K/mm3 (4.5-10.0)
[2020-01-28 06:31] LABS: CRP 2.6 mg/dL (<1.0)
[2020-01-28 07:30] VITALS: BP 149/78; PULSE 73; RESP 18; TEMP 35.7; O2SAT 97
--- NOTE | 2020-01-28 08:30 | PM.DS ---
DS: Admitting Diagnosis Admitting Diagnosis Admitting Diagnosis: Left thigh infection. DS: Discharge Diagnosis Discharge Diagnosis (1) Cellulitis of left thigh: Code(s): L03.116 - Cellulitis of left lower limb Status: Acute Assessment and Plan: -----admitted on 01/18 and initially started on Ancef and vancomycin but did not tolerate the vancomycin well even with Benadryl and slowing the rate. She was switched to ceftaroline (completed 7 days) and has been doing well. Her erythema is better but now it is draining. We will let those continue to drain. CRP greatly improved and WBC midly elevated. Blood cultures negative. Discharged on an additional week of doxycycline. pt is to f/u with pcp in 1-2 weeks (2) Sepsis: Qualifiers: Sepsis acute organ dysfunction status: without acute organ dysfunction Sepsis type: sepsis due to unspecified organism Qualified Code(s): A41.9 - Sepsis, unspecified organism Code(s): A41.9 - Sepsis, unspecified organism Status: Acute Assessment and Plan: -----Present on admission and supported by fever and leukocytosis in the setting of infection as stated above. Blood cultures are negative. (3) Chronic obstructive pulmonary disease: Qualifiers: COPD type: unspecified COPD Qualified Code(s): J44.9 - Chronic obstructive pulmonary disease, unspecified Code(s): J44.9 - Chronic obstructive pulmonary disease, unspecified Status: Chronic Assessment and Plan: -----no acute issues durring the stay (4) Obstructive sleep apnea on CPAP: Code(s): G47.33 - Obstructive sleep apnea (adult) (pediatric); Z99.89 - Dependence on other enabling machines and devices Status: Chronic Assessment and Plan: ----Continue home CPAP (5) Morbid obesity with BMI of 70 and over, adult: Code(s): E66.01 - Morbid (severe) obesity due to excess calories; Z68.45 - Body mass index (BMI) 70 or greater, adult Status: Chronic Assessment and Plan: -----Healthy lifestyle is encouraged. Pt would benefit from weight loss surgery. (6) Tobacco abuse: Code(s): Z72.0 - Tobacco use Status: Chronic Assessment and Plan: ----Smoking cessation encouraged. (7) Lymphedema: Code(s): I89.0 - Lymphedema, not elsewhere classified Status: Chronic Assessment and Plan: -----She experiences chronic lymphedema and lipedema for which she has followed with specialists in the past. She notes she does not go to lymphedema clinic or do her wraps any longer. She understands this makes her high risk of recurrence of cellulitis DS: Summary Hospital Course Reason for hospitalization: Cellulitis Hospital Course: Patient is a severely obese patient who presented emergency room for left thigh erythema and swelling found to have cellulitis. In the ER her temperature was 99.2?, pulse 117, respiratory rate 22, blood pressure 140/101, pulse ox 97 on room air. Initial white blood cell count 14.0, hemoglobin 11.4, hematocrit 35.1, platelets 207. BMP within normal limits with exception of glucose 130. Hip x-ray showed mild bilateral hip osteoarthritis. Patient was started on Ancef and vancomycin and was admitted to the hospitalist service. She had a reaction to vancomycin which did not improve with Benadryl or slowing the rate so this was discontinued and she was placed on Teflaro. She initially had a slow recovery and infectious disease was consulted and agreed with the current treatment. She received 7 days of IV antibiotics. Her CRP greatly improved during her stay as did her white blood cell count. The day of discharge the erythema was better. Wound Care saw her and recommended letting it drain. Infectious Disease recommended doxycycline outpatient. The patient is to follow-up with her primary care physician in 1-2 weeks. She was educated about the worrisome signs and symptoms come back
[2020-01-28] MEDS: FLUTICASONE PROPIONATE 0.05% NA SPR 16 GM BTL (*BKC) 1 SPRAY NASAL (09:07)
[2020-01-28] MEDS: ENOXAPARIN 40 MG/0.4 ML SYRINGE SUB-Q (09:07)
[2020-01-28] MEDS: guaiFENesin 12 HR 600 MG TABCR PO (09:08)
--- NOTE | 2020-01-28 10:28 | PCNWS ---
Weekly nutritional screen. Patient is tolerating current diet with adequate intake. No weight loss reported. No nutritional needs at this time.
--- NOTE | 2020-02-05 14:25 | PC.NURSE ---
Anaerobic cx - rare gram+ bacilli. SUPRIYA Hardin aware.
== END 2020-01-28 12:50 | disposition home or self-care (01) | DRG 872 ==
LOC: ANHED 16:53 → ANH3MED 19:41
PROVIDERS: Internal Medicine Infectious Disease; Physician Assistant; Admitting Provider Family Medicine; Emergency Provider Emergency Medicine; PCP Family Medicine; Visit Provider Family Medicine
DX: A41.9 Sepsis, unspecified organism (principal); L03.116 Cellulitis of left lower limb; Z68.45 Body mass index [BMI] 70 or greater, adult; E66.01 Morbid (severe) obesity due to excess calories; R23.8 Other skin changes; G47.33 Obstructive sleep apnea (adult) (pediatric); J44.9 Chronic obstructive pulmonary disease, unspecified; F17.210 Nicotine dependence, cigarettes, uncomplicated; I89.0 Lymphedema, not elsewhere classified; R73.9 Hyperglycemia, unspecified; R03.0 Elevated blood-pressure reading, without diagnosis of hypertension; L50.0 Allergic urticaria; T36.8X5A Adverse effect of other systemic antibiotics, initial encounter; Z99.89 Dependence on other enabling machines and devices; Z79.899 Other long term (current) drug therapy
CPT/HCPCS: 36415; 73502; 80048; 80053; 82565; 83036; 83605; 83735; 85025; 85027; 85652; 86140; 87040; 87070; 87075; 87205; 96361; 96365; 96366; 96367; 96372; 96375; 97161; 97165; 99285; A9270; G0378; J0690; J0712; J1650; J1885; J3370; J7030

== ENCOUNTER 2020-06-14 15:37 | Outpatient (CLI) | payer BC, MEDICAID, SELFPAY ==
--- NOTE | ~2020-06-14 | XR_ITS ---
EXAMINATION: XR chest 2V DATE: 06/14/2020 16:17 INDICATION: Shortness of breath. TECHNIQUE: Frontal and lateral views of the chest were obtained. COMPARISON: Chest 2 views 11/19/2019 FINDINGS: A calcified right lung nodule is consistent with old granulomatous disease. No pleural effu ligia or pneumothorax. The heart size is normal. There is mild chronic anterior wedging 2 lower thorac ic vertebral bodies. IMPRESSION: 1. No acute cardiopulmonary disease. Reviewed, dictated and finalized at location B. [employer]
[2020-06-14 16:31] LABS: Hematocrit 39.6 % (37.0-47.0); Hemoglobin 12.5 g/dL (12.0-15.0); Mean Corpuscular HGB Conc 31.6 g/dl (32-36); Mean Corpuscular Hemoglobin 27.8 pg (26-34); Mean Platelet Volume 9.2 fl (7.4-10.4); Platelet Count Result 249 k/mm3 (150-375); Red Cell Distribution Width 14.2 % (11.5-14.5); White Blood Count 10.4 K/mm3 (4.5-10.0)
[2020-06-14 16:43] LABS: Alanine Aminotransferase 20 U/L (4-35); Albumin Level 4.3 g/dL (3.5-5.1); Alkaline Phosphatase 72 U/L (38-126); Anion Gap 6 mmol/L (8-16); Aspartate Amino Transferase 27 U/L (14-36); Bilirubin,Total 0.6 mg/dL (0.2-1.3); Blood Urea Nitrogen 12 mg/dL (7-17); Calcium 9.5 mg/dL (8.4-10.2); Carbon Dioxide 29 mmol/L (22-30); Chloride 104 mmol/L (98-107); Estimated Glomerular Filt Rate > 60; Glucose 105 mg/dL (65-105); Potassium 4.1 mmol/L (3.4-5.0); Sodium 139 mmol/L (137-145)
[2020-06-14 16:44] LABS: Hemoglobin A1C 5.2 % (<5.7)
[2020-06-14 17:27] LABS: Free T4 Free Thyroxine 0.88 ng/mL (0.78-2.19)
== END 2020-06-14 15:38 | disposition home or self-care (01) ==
PROVIDERS: PCP Physician Assistant; Visit Provider Physician Assistant
DX: R06.02 Shortness of breath (principal); R53.83 Other fatigue; R73.9 Hyperglycemia, unspecified
CPT/HCPCS: 36415; 71046; 80053; 83036; 84439; 84443; 85027

== ENCOUNTER 2020-08-16 12:30 | Outpatient (RCR) | payer BC, MEDICAID, SELFPAY ==
--- NOTE | 2020-05-31 11:51 | PTOPEVAL ---
PHYSICAL THERAPY EVALUATION AND PLAN OF CARE 05-31-20 Thank you for referring Erin Mccann to [facility].? She is scheduled to be seen for therapy? 2 x/week for 5 weeks. Please review, sign, date and return this plan of care JAYLEN. I agree with and certify that the following plan of care is medically necessary. Referring Physician Date Attending Provider: CHRISTINE CarterPT Outpatient Evaluation Start: 05/31/20 09:34 Document 05/31/20 10:30 JOHAN (Rec: 05/31/20 11:51 JOHAN [id number]) Outpatient Past Medical History Past Medical History Source of Past Medical History Patient,Recalled from Previous Visit, Confirmed with Patient /Family Neurological History Hx Neurological Disorders No Significant History Cardiovascular History Hx Cardiac Disorders No Significant History Respiratory History Hx Bronchitis Yes Hx Chronic Obstructive Pulmonary Disease Yes (COPD) Hx Sleep Apnea Yes Gastrointestinal History Hx Gastrointestinal Disorders No Significant History Genitourinary History Hx Genitourinary Disorders No Significant History Musculoskeletal History Hx Back Pain Yes: recent onset of back pain Hematological History Hx Hematological Disorders No Significant History Endocrine History Hx Endocrine Disorders No Significant History HEENT History Hx HEENT Disorders No Significant History Integumentary History Hx Cellulitis Yes Reproductive History Hx Reproductive Disorders No Significant History Psychosocial History Hx Psychiatric Disorders No Significant History Pain History Has Past Pain Affected Your Daily Life Yes Effective Methods of Pain Control I ignore it and it goes away. Anesthesia History Hx Anesthesia Reactions No Significant History Other History Hx Other Surgeries Yes: tonsillectomy 2011 Evaluation Information Problem Diagnosis B lymphedema Onset Dec 2019 Prior Level of Function Activity Level (Last 3 Months) Occupation not worked since December, on medical leave since hospitalization Hand Dominance Right Activity of Daily Living Ability Dependent Indoor/Home Mobility Independent Community Mobility Dependent Stairs Ability Dependent Functional Cognition (Planning, Shopping Dependent , Taking Medications) Cooking No Cleaning No Laundry No Shopping No Driving No Home Setting Home Type [facility]
--- NOTE | 2020-06-01 14:17 | PCPTNOTE ---
called office and left message about pt decline in medical condition with increase SOB after walking 20' and having to sit/rest. And increased overall swelling of arms and legs. Original PT order is dated February and pt has not been seen in the dr office--has been virtual or phone visits. Informed them that I recommended pt call and get into office for a follow up appointment.
--- NOTE | 2020-06-03 12:51 | PCPTNOTE ---
Patient called & cancelled scheduled appointment this date due to [transportation issues. ]
--- NOTE | 2020-06-24 10:07 | PCPTNOTE ---
Pt called and cancelled due to ice on her driveway unsafe to walk on.
--- NOTE | 2020-07-05 15:47 | PTOPEVAL ---
PHYSICAL THERAPY RE-EVALUATION AND UPDATED PLAN OF CARE 07-05-20 Refer to the clinical summary below for her status with today's reevaluation, compared to the initial evaluation. Cat has received 9 PT sessions, with 2 cancellations, due to bad weather and transportation issues. PT is to continue treatment 2x/week for 6 weeks, to increase strength and mobility skills, and decrease lymphedema of B UE's and LE's. Thank you for referring Erin Mccann to [facility].? Please review, sign, date and return this updated plan of care [facility]. I agree with and certify that the following plan of care is medically necessary. Referring Physician Date Attending Provider: Radha Gallego MD Ordering provider: Che Fontana PA-C Document 07/05/20 12:30 JOHAN (Rec: 07/05/20 13:41 JOHAN [id number]) Assessment Status Re-evaluation Subjective Information Cat reports: improved with Query Text:As Reported By Patient/ walking more, L hand and Family forearm are smaller from the wraps; have been moving more and doing arm/leg exercises; getting better; want to continue therapy; have Flexitouch pump at home, with one arm and one leg piece, but have not been using due to difficulty getting pump on/off - family have to help her with it; Discussed with her use of the pump 1-2 x/day; And importance of the pump; Pain Assessment Timing of Pain Assessment Timing of Pain Assessment Assessment Pain Scale Pain Scale Used Numeric (1 - 10) Self Report Pain Assessment Bilateral Generalized Reported Pain Level 6 Pain Frequency Chronic Other Pain Description hips and knees most painful today; Lowest Pain Intensity 2 Greatest Pain Intensity 7 Pain Score Pain Score 6: Self Report Interventions Used Interventions Used By Clinicians Education,Exercise Lower Extremity Muscle Strength Testing General Lower Extremity Strength Gross Lower Extremity Strength supine SLR R 4/ L 3 reps, barely clear heel off mat and labored Gait Assessment Gait Assessment Ambulation Assistive Devices Walker, Rollator Ambulation Distance 150 Query Text:(Feet) Ambulation Destination In Corridor Ambulation Direction Forward Ambulation Ability Independent Additional Ambulation Comments SOB, but without a rest break Lymphedema Evaluation UE Circumferential Measurement Right UE Lymphedema Side Right Mid-Prox
--- NOTE | 2020-08-02 13:30 | PCPTNOTE ---
Pt called, very upset and canceled due to transportation issues. Pt was picked up by helping hands , Pt was n the van and the drivere refused to drive her , stating that she could not fasten her seatbelt . The company has driven her several times without a problem . Pt had to exit car and go back into her house.
--- NOTE | 2020-08-16 13:45 | PTOPEVAL ---
PHYSICAL THERAPY DISCHARGE 08-16-20 Refer to the clinical summary below, for her status today, compared to the last reevaluation. Discharge from PT at this time. The goals were partially achieved--her strength and mobility have improved. Thank you for referring Erin Mccann to [facility] [place] Please review, sign, date and return this discharge JAYLEN. I agree with and certify that the following plan of care is medically necessary. Referring Physician Date Attending Provider: Radha Gallego MD Document 08/16/20 12:30 JOHAN (Rec: 08/16/20 13:45 JOHAN [email or web address]) Assessment Status Discharge Subjective Information Cat reports: walking is better Query Text:As Reported By Patient/ - stand up straighter, back is Family stronger and back is not hurting as much; at home, is getting up more, have a new recliner and can elevate legs; have been doing leg and arm exercises when sitting in chair; am interacting more with children-- playing video games, toss ball in sitting; have home pump out of the closet, but not yet set up with the new chair and living room arrangement; understands what she needs to do at home and continue with leg exercises; agrees with discharge from PT. Pain Assessment Timing of Pain Assessment Timing of Pain Assessment Assessment Pain Scale Pain Scale Used Numeric (1 - 10) Self Report Pain Assessment Bilateral Generalized Reported Pain Level 3 Pain Frequency Chronic,Continuous Lowest Pain Intensity 2 Greatest Pain Intensity 7 Pain Score Pain Score 3: Self Report Interventions Used Interventions Used By Clinicians Education,Exercise Lower Extremity Muscle Strength Testing General Lower Extremity Strength Gross Lower Extremity Strength sit/stand on first trial, without laboring, with use of UE on thighs; x 5 reps, from 18 seat height ; sit/supine: indep with legs on /off mat; SOB with perform Upper Extremity Muscle Strength Testing General Upper Extremity Strength Gross Upper Extremity Strength Comments sitting: R and L: finger flexion/extension- little tight and stiff; elbow flexion /extension-
== END 2020-08-17 10:09 | disposition home or self-care (01) ==
LOC: ANHPT 12:30
PROVIDERS: PCP Family Medicine; Visit Provider Family Medicine
DX: I89.0 Lymphedema, not elsewhere classified (principal)
CPT/HCPCS: 29581; 97110; 97116; 97140; 97162

== ENCOUNTER 2020-12-01 12:57 | Inpatient (IN) | payer BC, SELFPAY ==
[2020-12-01 13:40] VITALS: BP 153/98; PULSE 85; RESP 17; TEMP 37.4; O2SAT 97
[2020-12-01 17:59] VITALS: BP 158/95; PULSE 86; RESP 16; O2SAT 99
[2020-12-01 18:02] LABS: Basophils Absolute Auto 0.1 K/mm3 (0.0-0.1); Basophils Percent Auto 0.7 % (0.2-1.2); Eosinophils Absolute Auto 0.1 K/mm3 (0-0.3); Eosinophils Percent Auto 1.2 % (0-4.4); Hematocrit 39.6 % (37.0-47.0); Hemoglobin 12.2 g/dL (12.0-15.0); Immature Granulocyte Absolute 0.17 K/mm3 (0.00-0.031); Immature Granulocyte Percent A 1.6 % (0-0.5); Lymphocytes Absolute Auto 1.31 K/mm3 (0.9-3.2); Lymphocytes Percent Auto 12.7 % (18.3-44.2); Mean Corpuscular HGB Conc 30.8 g/dl (32-36); Mean Corpuscular Hemoglobin 27.2 pg (26-34); Mean Corpuscular Volume 88.4 fl (80-100); Mean Platelet Volume 9.5 fl (7.4-10.4); Monocytes Absolute Auto 0.6 K/mm3 (0.1-0.6); Monocytes Percent Auto 6.2 % (2.6-8.5); Neutrophils Percent Auto 77.6 % (45.5-73.1); Platelet Count Result 301 k/mm3 (150-375); Red Blood Count 4.48 M/mm3 (4.2-5.4); Red Cell Distribution Width 14.1 % (11.5-14.5); White Blood Count 10.3 K/mm3 (4.5-10.0)
[2020-12-01 18:11] LABS: Lactic Acid Reflex 1.3 mmol/L (0.7-2.1)
[2020-12-01 18:21] LABS: Alanine Aminotransferase 23 U/L (4-35); Albumin Level 4.5 g/dL (3.5-5.1); Alkaline Phosphatase 91 U/L (38-126); Anion Gap 8 mmol/L (8-16); Aspartate Amino Transferase 32 U/L (14-36); Bilirubin,Total 0.4 mg/dL (0.2-1.3); Blood Urea Nitrogen 15 mg/dL (7-17); CRP 3.6 mg/dL (<1.0); Calcium 9.7 mg/dL (8.4-10.2); Carbon Dioxide 30 mmol/L (22-30); Chloride 100 mmol/L (98-107); Estimated CRCL calculation 153 ml/min; Estimated Glomerular Filt Rate > 60; Glucose 111 mg/dL (65-105); Potassium 4.4 mmol/L (3.4-5.0); Sodium 138 mmol/L (137-145)
--- NOTE | 2020-12-01 19:01 | ED.SKABFB ---
HPI - Skin/Abscess/Foreign Bdy General Chief complaint: Skin/Abscess/Foreign Body Stated complaint: leg cellulitis Time Seen by Provider: 12/01/20 17:28 Source: patient Mode of arrival: ambulatory Limitations: no limitations History of Present Illness HPI narrative: 45-year-old with a history of recurrent cellulitis to the left eye here with complaints of pain, swelling, redness and fever for last few days. Patient states that she has been on Keflex for past few days however she has been spiking high fever. She states that she called Dr. Espinoza who recommended her to come to the ER. She presently denies any nausea or vomiting. Denies any shortness of breath. complaint: other (Redness) Onset (ago): day(s) (4) Location: LLE (Left thigh) Severity: moderate Quality: aching Pain Consistency: constant Relieving factors: none Exacerbating factors: none Context: none Associated symptoms: fever and chills Treatments prior to arrival: antibiotic (Keflex) Related Data Home Medications Medication Instructions Recorded Confirmed albuterol sulfate 0.63 mg INHALATION Q6H PRN 01/19/20 02/09/20 Allergies Allergy/AdvReac Type Severity Reaction Status Date / Time capsaicin Allergy Severe Difficulty Verified 10/07/20 09:30 Breathing; swelling adhesive Allergy Mild unknown Verified 10/07/20 09:30 prochlorperazine Allergy Mild unknown Verified 10/07/20 09:30 vancomycin AdvReac Hives Verified 10/07/20 09:30 Review of Systems Review of Systems: All systems reviewed & are unremarkable except as noted in HPI and below Constitutional: Constitutional: Reports fever(s) Eyes: Eyes: Reports no additional eye complaints Cardiovascular: Cardiovascular: Reports no additional cardiovascular complaints Respiratory: Respiratory: Reports no additional respiratory complaints Gastrointestinal: Gastrointestinal: Reports no additional gastrointestinal complaints Musculoskeletal: Musculoskeletal: Reports no additional musculoskeletal complaints Integumentary/Breasts: Skin/Breast: Reports as per HPI Neurologic: Reports system reviewed and no additional complaints, except as documented Endocrine: Endocrine: Reports no additional endocrine complaints Hematologic/Lymphatic: Hematologic/Lymphatic: Reports no additional hematologic/lymphatic complaints [facility] Past Medical History Medical History (Updated 12/01/20 @ 19:13 by Pedro Luis Fofana MD) Chronic obstructive pulmonary disease Ellen-Danlos syndrome Lipedema Lymphedema Morbid obesity with BMI of 70 and over, adult Obstructive sleep apnea on CPAP Tobacco abuse She has smoked up to 3 packs of cigarettes per day, but now smokes about half a pack a day after starting Chantix. Surgical History Surgical History History of tonsillectomy Family History Family History Father Hypertension Family history of elevated blood lipids Family history of cardiovascular disease Cerebrovascular accident Malignant neoplasm of prostate Sibling Hypertension Family history of coronary artery disease Diabetes mellitus Family history of elevated blood lipids Family history of cardiovascular disease Mother Hypertension Family history of elevated blood lipids Social History Social History Social History: Surrogate decision maker: Daria Mccann, . Code status: Full code. Smoking packs per day: 3 Smoking cigarettes per day: 60.0 Years smoked: 30 Smoking pack-years: 90.00 Smoking status: Former smoker Tobacco type: cigarettes Second hand tobacco smoke exposure: No Smoking end date: 01/17/20 Additional smoking assessment comments: Up to 3 ppd, now about 1.5 ppd on Chantix as of 01/19/2020. Alcohol intake: current Alcohol use details: rare Substance use: never Substance use type: does not
--- NOTE | 2020-12-01 19:37 | PM.IMHP ---
H&P: HPI History of Present Illness Date/Time: 12/01/20 22:00 Chief Complaint: Left thigh infection Narrative: 45-year-old female past medical history of morbid obesity, obstructive sleep apnea, COPD and chronic lymphedema who presented to the ER via private vehicle due to cellulitis of the left thigh. The patient has a history of prior cellulitis associated (12/2019) treated with ceftaroline. She had 2 more episodes of cellulitis of the left thigh as outpatient that was successfully treated with Keflex. However, 6 days ago she had sudden onset of fever, chills/rigors. She had a temperature up to 103. She called her primary care physician and received a script for Keflex. She started taking the medications immediately. Later that night she developed erythema to her left lateral thigh which is where she usually has her cellulitis. She reports that she has chronic lymphedema and lipedema. She reports that she chronically has vesicles to the skin of her upper outer thigh. They will frequently pop and ooze. She reports that she can usually get through the cellulitis as long as she gets 2 or 3 doses of antibiotics taken. However, this time her symptoms have progressively worsened despite the Keflex. Her erythema to the left thigh has now extended up into her left flank which is a change from baseline. She has had some decreased appetite but no nausea or vomiting. She has not had any changes in her bowel habits. She denies any cough, congestion or increased shortness of breath. She does have obstructive sleep apnea and wears a CPAP at home. She will often users CPAP while she is sitting and watching TV. She has noticed some mild tenderness over her left maxillary region which she thinks is due to a possible bad tooth. However she denies any actual dental pain or oral pharyngeal swelling. She had her 2nd COVID vaccine in July of 2020. She reports that her pain is a 6/10 in intensity in is burning in nature. She also reports bilateral knee pain that is unchanged from baseline. She reports that she has used wraps on her legs in the past but they only seemed to help move the at edema further up in her body. She reports that her weight has continued to increase since her last hospitalization. Her mobility has also gradually decreased since her hospitalization last year. She usually ambulates with a cane. Review of Systems Review of Systems: Narrative: 12 systems were reviewed with pertinent positives and negatives per HPI. Except as documented in the HPI, all other systems were reviewed and are negative. [facility] Past Medical History Medical History (Updated 12/02/20 @ 05:46 by Mamie Garnett DO) ADD (attention deficit disorder) Chronic obstructive pulmonary disease PFTs 2010: 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 she with mild hypercarbia Ellen-Danlos syndrome Hyperglycemia with hemoglobin A1c of 5.2% May 2020 Lipedema Lymphedema Morbid obesity with BMI of 70 and over, adult Obstructive sleep apnea on CPAP polysomnogram 2016 recommend CPAP of 20 Surgical History Surgical History History of tonsillectomy Family History Family History Father Hypertension Family history of elevated blood lipids Family history of cardiovascular disease Cerebrovascular accident Malignant neoplasm of prostate Sibling Hypertension Family history of coronary artery disease Diabetes mellitus Family history of elevated blood lipids Family history of cardiovascular disease Mother Hypertension Family history of elevated blood lipids Social History Social History (Updated 12/02/20 @ 05:49 by Mamie Garnett DO) Social History: Surrogate decision maker: Daria Mccann, . Code status: Full code. Smoking packs per day: 0.5 Smoking cigarettes per day: 10.0 Years
--- NOTE | 2020-12-01 21:40 | ADMGEN ---
This patient, Erin Mccann, was admitted to Medical Room 349-01. Patient/family oriented to hospital policies and general routines including ID bracelet, bed and alarms, visiting hours, pain management, procedures, bathroom and other care routines, personal items, smoking policy, room service/diet, and visiting hours. Information on how to activate the Rapid Response Team has been discussed. Patient/Family are encouraged to report perceived risks to care and to ask questions if they do not understand what they are told or what they should do.
[2020-12-01] MEDS: SODIUM CHLORIDE 0.9% IV 1,000 ML 75 ML IV CONT (21:45)
[2020-12-01] MEDS: ENOXAPARIN 40 MG/0.4 ML SYRINGE SUB-Q (21:51)
[2020-12-01 22:00] VITALS: BP 153/104; PULSE 104; RESP 20; TEMP 36; O2SAT 96
[2020-12-01] MEDS: MORPHINE SULFATE (*CRX) 2 MG/ML INJ IV PUSH (22:52)
[2020-12-02] VITALS: BMI 82.4
[2020-12-02 05:58] VITALS: BP 173/64; PULSE 84; RESP 18; TEMP 35.8; O2SAT 96
[2020-12-02 06:07] LABS: Basophils Absolute Auto 0.1 K/mm3 (0.0-0.1); Basophils Percent Auto 0.8 % (0.2-1.2); Eosinophils Absolute Auto 0.1 K/mm3 (0-0.3); Hematocrit 34.9 % (37.0-47.0); Immature Granulocyte Absolute 0.15 K/mm3 (0.00-0.031); Immature Granulocyte Percent A 1.7 % (0-0.5); Lymphocytes Absolute Auto 1.29 K/mm3 (0.9-3.2); Lymphocytes Percent Auto 14.9 % (18.3-44.2); Mean Corpuscular HGB Conc 31.5 g/dl (32-36); Mean Corpuscular Hemoglobin 27.1 pg (26-34); Mean Platelet Volume 9.2 fl (7.4-10.4); Monocytes Absolute Auto 0.6 K/mm3 (0.1-0.6); Monocytes Percent Auto 7.4 % (2.6-8.5); Neutrophils Absolute Auto 6.4 K/mm3 (1.3-6.7); Neutrophils Percent Auto 74.2 % (45.5-73.1); Platelet Count Result 262 k/mm3 (150-375); Red Blood Count 4.06 M/mm3 (4.2-5.4); Red Cell Distribution Width 14.3 % (11.5-14.5); White Blood Count 8.6 K/mm3 (4.5-10.0)
[2020-12-02 06:26] LABS: Anion Gap 10 mmol/L (8-16); Blood Urea Nitrogen 14 mg/dL (7-17); Calcium 8.9 mg/dL (8.4-10.2); Carbon Dioxide 27 mmol/L (22-30); Chloride 102 mmol/L (98-107); Estimated CRCL calculation 167 ml/min; Estimated Glomerular Filt Rate > 60; Glucose 129 mg/dL (65-105); Sodium 139 mmol/L (137-145)
[2020-12-02] MEDS: ACETAMINOPHEN 325 MG TABLET 650 MG PO (07:31)
[2020-12-02 08:44] VITALS: O2SAT 97
[2020-12-02] MEDS: ENOXAPARIN 40 MG/0.4 ML SYRINGE SUB-Q ×2 (08:48→21:31)
--- NOTE | 2020-12-02 11:05 | PM.IMPN ---
Progress Note: A&P Assessment and Plan (1) Cellulitis of left thigh: Code(s): L03.116 - Cellulitis of left lower limb Status: Acute Assessment and Plan: Recurrent cellulitis of the left thigh complicated by chronic lipedema and lymphedema. Patient tried outpatient Keflex since Sunday11/26/20 without any improvement of pain, cellulitis, but also no worsening of symptoms. She was sent in by PCP for further evaluation and IV antibiotics. Will give the patient trial of antibiotic therapy with IV Ancef, which seems to be working well at this time. Blood cultures are pending. Continue monitoring vitals, labs, blood cultures and healing process. Pain medications PRN (2) Obstructive sleep apnea on CPAP: Code(s): G47.33 - Obstructive sleep apnea (adult) (pediatric); Z99.89 - Dependence on other enabling machines and devices Status: Chronic Assessment and Plan: continue home CPAP therapy. Time Spent With Patient Time with patient: 25 - 35 minutes Subjective Date/time seen: 12/02/20 11:05 Interval history: Date of service 12/02/2020: the patient reports improvement of her left hip redness, pain, warmth with the IV antibiotics. She did report feeling slightly chilled in the emergency room last night but she thought was because it was cold and there. She denies any other fevers, chills, chest pain, shortness of breath, nausea, vomiting, abdominal pain, increased leg swelling, calf pain or any other symptoms at this time. Review of Systems Review of Systems: All systems reviewed & are unremarkable except as noted in HPI and below Exam Narrative: Exam Narrative: General: 45-year-old woman sitting up on the couch looking at her phone. Appears comfortable. In no acute distress. Skin: see picture below. No jaundice or cyanosis. Good skin turgor. Neck: Full range of motion. Supple. Respiratory: Lungs are clear to auscultation bilaterally. No bony chest wall tenderness. Cardiovascular: The heart has a regular rate and rhythm without murmur. Lower extremities: No pitting lower extremity edema. Distal pulses are easily palpated. No calf tenderness to palpation. Gastrointestinal: The abdomen is soft, nontender and nondistended. Psychiatric: Lucid and oriented. Memory intact. Neurologic: No focal deficits. Speech is clear. No facial drooping. Extrem: Upper/lower leg/hip images: 1. 12 in circumfrence of erythema noted to left hip and side panus area. Erythema seems to be improving to proximal area, still erythematous to distal hip, blanchable in nature with some warmth noted only beneath skin folds of left hip. No spreading of erythema outside of the marker bordering. Objective Data Vital Signs Vital Signs: Vital Signs - 24 hr 12/01/20 13:40 12/01/20 17:59 12/01/20 22:00 Temperature 99.4 F 96.8 F L Pulse Rate 85 86 104 H Respiratory Rate 17 16 20 Blood Pressure 153/98 H 158/95 H 153/104 H Pulse Oximetry 97 99 96 12/02/20 05:58 12/02/20 08:44 Temperature 96.5 F L Pulse Rate 84 Respiratory Rate 18 Blood Pressure 173/64 H Pulse Oximetry 96 97 Intake/Output Intake/Output: Intake & Output 11/29/20 11/30/20 12/01/20 12/02/20 23:59 23:59 23:59 23:59 Intake Total 50 840 Output Total 500 Balance 50 340 Meds/Results Medications: Active Medications Generic Name Dose Route Start Last Admin Trade Name Freq PRN Reason Stop Dose Admin Acetaminophen 650 mg 12/01/20 19:14 12/02/20 07:31 Acetaminophen 325 Mg Tablet PO 650 mg Q4H PRN Administration Mild Pain (1-3) or Fever Hydrocodone Bitart/Acetaminophen 1 tab 12/02/20 09:44 Hydrocodone/Acetaminophen (*Crx) 5-325 Mg Tablet PO Q4H PRN Pain Rated 4-6 Hydrocodone Bitart/Acetaminophen 1 tab 12/02/20 09:44 Hydrocodone/Acetaminophen (*Crx) 7.5-325 Mg Tablet PO Q4H PRN Pain Rated 7-10 Albuterol 0.63 mg 12/02/20 04:16 Albuterol Sulfate Neb 2.5 Mg
[2020-12-02 11:32] LABS: Add Urine Microscopic? YES; Appearance Urine Cloudy (Clear); Bacteria Urine Trace /hpf; Bilirubin Urine Negative (Negative); Blood Urine Negative (Negative); Color Urine Yellow (Yellow); Glucose Urine UA Negative (Negative); Ketones Urine Negative (Negative); Leukocyte Esterase Ur 1+ LEU/UL (Negative); Mucus Urine Rare /lpf; Nitrate Urine Negative (Negative); Protein Urine Negative (Negative); Specific Grav Ur 1.024 (1.001-1.035); Squamous Epithelial Cell Urine Many /hpf (Few); Urobilinogen Urine Negative mg/dL (<2.0); WBC Urine 0-3 /hpf
[2020-12-02] MEDS: PANTOPRAZOLE 40 MG TABLET PO ×2 (12:24→21:31)
[2020-12-02 14:00] VITALS: BP 146/83; PULSE 77; RESP 20; TEMP 36.1; O2SAT 99
[2020-12-02 20:17] VITALS: BP 136/75; PULSE 81; RESP 20; TEMP 36.3; O2SAT 94
[2020-12-02] MEDS: HYDROcodone/acetaminophen (*CRX) 5-325 MG TABLET 1 TAB PO (21:31)
[2020-12-03 05:11] VITALS: BP 132/67; PULSE 82; RESP 20; TEMP 36.4; O2SAT 95
[2020-12-03 05:13] LABS: Hematocrit 33.9 % (37.0-47.0); Hemoglobin 10.6 g/dL (12.0-15.0); Mean Corpuscular HGB Conc 31.3 g/dl (32-36); Mean Corpuscular Hemoglobin 27.3 pg (26-34); Mean Corpuscular Volume 87.4 fl (80-100); Mean Platelet Volume 9.3 fl (7.4-10.4); Platelet Count Result 274 k/mm3 (150-375); Red Blood Count 3.88 M/mm3 (4.2-5.4); Red Cell Distribution Width 14.2 % (11.5-14.5); White Blood Count 8.5 K/mm3 (4.5-10.0)
[2020-12-03 06:04] LABS: Anion Gap 8 mmol/L (8-16); Blood Urea Nitrogen 13 mg/dL (7-17); CRP 3.1 mg/dL (<1.0); Carbon Dioxide 26 mmol/L (22-30); Chloride 103 mmol/L (98-107); Estimated CRCL calculation 167 ml/min; Estimated Glomerular Filt Rate > 60; Glucose 134 mg/dL (65-105); Sodium 137 mmol/L (137-145)
[2020-12-03] MEDS: PANTOPRAZOLE 40 MG TABLET PO (08:51)
[2020-12-03] MEDS: ENOXAPARIN 40 MG/0.4 ML SYRINGE SUB-Q (08:51)
--- NOTE | 2020-12-03 10:46 | PM.DS ---
DS: Admitting Diagnosis Admitting Diagnosis Admitting Diagnosis: Cellulitis of the left extremity DS: Discharge Diagnosis Discharge Diagnosis (1) Cellulitis of left thigh: Code(s): L03.116 - Cellulitis of left lower limb Status: Acute Assessment and Plan: Recurrent cellulitis of the left thigh complicated by chronic lipedema and lymphedema. Patient tried outpatient Keflex since Sunday11/26/20 without any improvement of pain, cellulitis, but also no worsening of symptoms. She was sent in by PCP for further evaluation and IV antibiotics. Will give the patient trial of antibiotic therapy with IV Ancef, which seems to be working well at this time. Blood cultures are pending. Continue monitoring vitals, labs, blood cultures and healing process. Pain medications PRN (2) Obstructive sleep apnea on CPAP: Code(s): G47.33 - Obstructive sleep apnea (adult) (pediatric); Z99.89 - Dependence on other enabling machines and devices Status: Chronic Assessment and Plan: continue home CPAP therapy. DS: Summary Hospital Course Hospital Course: Patient is a 45-year-old female with a past medical history of cellulitis and hypertension who came to the ED on 12/01 for evaluation of cellulitis to the left hip. Since admission patient's labs have been trending down white count 10.3 and now 8.5. She was treated with IV Ancef which did help with the redness and the pain. The redness is very scant and is much small in area then the outline drawn. There are a few blisters present, very small about 2-3mm in size. There is edema that is pitting present. Patient does have pain with deep palpation of the area. Patient still does have some pain and some redness however it is much improved patient is able to walk and has been walking herself to the bathroom. Blood cultures are still pending will send patient home on oral doxycycline and Augmentin. Will ask patient to follow-up with primary in 1-2 weeks. Status at Discharge Functional status at discharge: independent ambulation Overall status at discharge: patient is progressing back to baseline Time Spent with Patient Time attestation: Total time spent providing and/or coordinating discharge services: 38 minutes Time spent: Greater than 30 minutes Specific discharge activities: chart review, medication review, diagnostic testing, physical exam, result review, lab review, documentation, education. Exam Const: General: cooperative, healthy appearing, comfortable, no acute distress, well developed, alert, awake and Physically active Nutritional Appearance: well nourished, obese and overweight Orientation/consciousness: oriented to person, oriented to place, oriented to time and patient oriented x3 Limitations: no limitations and physical limitations (Medical condition) HENMT: Head: normal to inspection Ears: hearing grossly normal bilaterally General nose exam: Normal external nose present Mouth: Yes Normal oral and palatal mucosa present, Yes lip normal, Yes tongue normal and Yes moist mucous membranes Teeth and gingiva: abnormal tooth and associated gingiva and poor dentition Eyes: General: appearance normal, both eyes and all related structures Alignment and Position: alignment normal Eyelids: eyelids normal EOM: EOMs intact bilaterally Neck: Neck: normal visual inspection, full ROM, trachea midline and supple Chest: Chest palpation & inspection: normal inspection of the chest Resp: Effort & Inspection: normal respiratory effort and able to speak in complete sentences Auscultation: clear to auscultation bilaterally Cardio: Jugular venous distension: no JVD Rate: regular rate Rhythm: regular rhythm Heart sounds: S1 normal heart sound present and S2 normal heart sound present Peripheral pulses: Peripheral pulses 2+ throughout GI: Inspection: normal to inspection GI Palp: Yes Soft to palpation and No Tenderness to palpation present (GI) [facility]
== END 2020-12-03 15:43 | disposition home health service (06) | DRG 383 ==
LOC: ANHED 19:13 → ANH3MED 12-02 00:40 → ANH2MED 12-02 14:04 → ANH3MED 12-06 15:53
PROVIDERS: Admitting Provider Family Medicine; Emergency Provider Family Medicine; PCP Family Medicine; Visit Provider Physician Assistant
DX: L03.116 Cellulitis of left lower limb (principal); I10 Essential (primary) hypertension; G47.33 Obstructive sleep apnea (adult) (pediatric); E66.01 Morbid (severe) obesity due to excess calories; Z68.45 Body mass index [BMI] 70 or greater, adult; J44.9 Chronic obstructive pulmonary disease, unspecified; I89.0 Lymphedema, not elsewhere classified; Z99.89 Dependence on other enabling machines and devices; Z79.899 Other long term (current) drug therapy
CPT/HCPCS: 36415; 80048; 80053; 81001; 83605; 85025; 85027; 86140; 87040; 94660; 97161; 97165; 99285; A9270; J0690; J1650; J2270; J7030

== ENCOUNTER 2021-02-07 10:16 | Inpatient (IN) | payer BC, SELFPAY ==
--- NOTE | ~2021-02-07 | XR_ITS ---
EXAMINATION: XR hip LT min 2V DATE: 02/07/2021 21:51 INDICATION: Cellulitis at the left hip TECHNIQUE: Anteroposterior and frog-leg lateral views of the left hip were obtained. COMPARISON: None. FINDINGS: Alignment is normal. No fracture or suspected avascular necrosis. Mild left hip osteoarthritis with m arginal osteophytes about the acetabulum. Soft tissues are unremarkable. IMPRESSION: 1. Mild left hip osteoarthritis. Reviewed, dictated and finalized at location A.
[2021-02-07 10:18] VITALS: BP 141/74; PULSE 76; RESP 24; TEMP 36.2; O2SAT 98
[2021-02-07 10:54] VITALS: BP 140/80; PULSE 71; RESP 12; TEMP 36.6; O2SAT 99
[2021-02-07 12:24] LABS: Basophils Absolute Auto 0.1 K/mm3 (0.0-0.1); Basophils Percent Auto 0.6 % (0.2-1.2); Eosinophils Absolute Auto 0.1 K/mm3 (0-0.3); Eosinophils Percent Auto 1.4 % (0-4.4); Hemoglobin 11.4 g/dL (12.0-15.0); Immature Granulocyte Absolute 0.07 K/mm3 (0.00-0.031); Immature Granulocyte Percent A 0.9 % (0-0.5); Lymphocytes Absolute Auto 0.86 K/mm3 (0.9-3.2); Lymphocytes Percent Auto 11.1 % (18.3-44.2); Mean Corpuscular HGB Conc 30.8 g/dl (32-36); Mean Corpuscular Hemoglobin 26.8 pg (26-34); Mean Corpuscular Volume 86.9 fl (80-100); Mean Platelet Volume 9.6 fl (7.4-10.4); Monocytes Absolute Auto 0.5 K/mm3 (0.1-0.6); Monocytes Percent Auto 6.6 % (2.6-8.5); Neutrophils Absolute Auto 6.1 K/mm3 (1.3-6.7); Neutrophils Percent Auto 79.4 % (45.5-73.1); Platelet Count Result 246 k/mm3 (150-375); Red Blood Count 4.26 M/mm3 (4.2-5.4); Red Cell Distribution Width 14.1 % (11.5-14.5); White Blood Count 7.7 K/mm3 (4.5-10.0)
--- NOTE | 2021-02-07 12:34 | ED.SKABFB ---
HPI - Skin/Abscess/Foreign Bdy General Chief complaint: Skin/Abscess/Foreign Body Stated complaint: Cellulitis in my L upper thigh Time Seen by Provider: 02/07/21 11:11 Source: patient Limitations: no limitations History of Present Illness HPI narrative: 45-year-old with a history of lymphedema, recurrent cellulitis of the left thigh, COPD, [place] here with complaints of fever and chills for past 2 days. She states that her left thigh is been red and warm and draining. Patient states that she has been on Keflex for past 2 days. No history of nausea or vomiting or chills. She states that she has some difficulty in breathing while ambulating. complaint: other (Redness and drainage) Onset (ago): day(s) (2) Location: LLE Severity: moderate Quality: aching Pain Consistency: constant Relieving factors: none Exacerbating factors: none Context: none Associated symptoms: shortness of breath Treatments prior to arrival: antibiotic (Keflex) Related Data Home Medications Medication Instructions Recorded Confirmed albuterol sulfate 0.63 mg INHALATION Q6H PRN 01/19/20 12/29/20 Allergies Allergy/AdvReac Type Severity Reaction Status Date / Time capsaicin Allergy Severe Difficulty Verified 12/29/20 11:51 Breathing; swelling adhesive Allergy Mild unknown Verified 12/29/20 11:51 prochlorperazine Allergy Mild unknown Verified 12/29/20 11:51 vancomycin AdvReac Hives Verified 12/29/20 11:51 Review of Systems Review of Systems: All systems reviewed & are unremarkable except as noted in HPI and below Constitutional: Constitutional: Reports no additional constitutional complaints Eyes: Eyes: Reports no additional eye complaints Cardiovascular: Cardiovascular: Reports no additional cardiovascular complaints Respiratory: Respiratory: Reports as per HPI Musculoskeletal: Musculoskeletal: Reports as per HPI Integumentary/Breasts: Skin/Breast: Reports as per HPI Neurologic: Reports system reviewed and no additional complaints, except as documented Psychiatric: Psychiatric: Reports no additional psychiatric complaints Endocrine: Endocrine: Reports no additional endocrine complaints [facility] Past Medical History Medical History ADD (attention deficit disorder) Chronic obstructive pulmonary disease PFTs 2010: 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 she with mild hypercarbia Ellen-Danlos syndrome Hyperglycemia with hemoglobin A1c of 5.2% May 2020 Lipedema Lymphedema Morbid obesity with BMI of 70 and over, adult Obstructive sleep apnea on CPAP polysomnogram 2016 recommend CPAP of 20 Surgical History Surgical History History of tonsillectomy Family History Family History Father Hypertension Family history of elevated blood lipids Family history of cardiovascular disease Cerebrovascular accident Malignant neoplasm of prostate Sibling Hypertension Family history of coronary artery disease Diabetes mellitus Family history of elevated blood lipids Family history of cardiovascular disease Mother Hypertension Family history of elevated blood lipids Social History Social History Social History: Surrogate decision maker: Daria Mccann, . Code status: Full code. Smoking packs per day: 0.5 Smoking cigarettes per day: 10.0 Years smoked: 30 Smoking pack-years: 15.00 Tobacco type: cigarettes Second hand tobacco smoke exposure: No Alcohol intake: current Alcohol use details: rare Substance use: never Substance use type: does not use Additional living arrangements comments: Resides with her spouse and their 10-year-old twins (1 girl and 1 that is transgender) in [place]. Additional occupation/education
[2021-02-07 12:41] LABS: Alanine Aminotransferase 27 U/L (4-35); Albumin Level 4.1 g/dL (3.5-5.1); Alkaline Phosphatase 72 U/L (38-126); Anion Gap 8 mmol/L (8-16); Aspartate Amino Transferase 33 U/L (14-36); Bilirubin,Total 0.6 mg/dL (0.2-1.3); Blood Urea Nitrogen 11 mg/dL (7-17); Calcium 8.8 mg/dL (8.4-10.2); Carbon Dioxide 28 mmol/L (22-30); Chloride 104 mmol/L (98-107); Estimated CRCL calculation 166 ml/min; Estimated Glomerular Filt Rate > 60; Glucose 139 mg/dL (65-110); Lactic Acid Reflex 1.3 mmol/L (0.7-2.1); Potassium 3.8 mmol/L (3.4-5.0); Sodium 140 mmol/L (137-145)
[2021-02-07] MEDS: SODIUM CHLORIDE 0.9% IV 1,000 ML 150 ML IV CONT (13:01)
[2021-02-07 13:55] VITALS: BP 138/82; PULSE 73; RESP 18; O2SAT 97
--- NOTE | 2021-02-07 14:34 | PC.NURSE ---
IV Fluids not fully infused, sent up with patient to floor
[2021-02-07 15:00] VITALS: BP 144/87; PULSE 77; RESP 18; TEMP 36.6; O2SAT 96; BMI 81.3
[2021-02-07] MEDS: SODIUM CHLORIDE 0.9% IV 1,000 ML 75 ML IV CONT (20:16)
[2021-02-07] MEDS: ACETAMINOPHEN 325 MG TABLET 650 MG PO (20:24)
--- NOTE | 2021-02-07 20:39 | PM.IMHP ---
H&P: HPI History of Present Illness Date/Time: 02/07/21 20:39 this is a 45-year-old female patient who has a history of obesity, lymphedema, and recurrent cellulitis to the left thigh. She also has a history of COPD and CAMILLE. The patient has been having fever and chills for 2 days. She has some redness and drainage of clear fluid from the left upper thigh. She has been on Keflex for the last couple days. She states that she is not getting any better with the Keflex. Patient was started on IV fluids and cefepime. Blood cultures are pending. Patient was admitted to inpatient services on the date of service of 02/07/2021. Chief Complaint: Redness to left hip Review of Systems Review of Systems: All systems reviewed & are unremarkable except as noted in HPI and below Constitutional: Constitutional: Reports as per HPI and Reports no additional constitutional complaints Eyes: Eyes: Reports as per HPI and Reports no additional eye complaints ENT: Reports system reviewed and no additional complaints, except as documented and Reports Normal hearing present Cardiovascular: Cardiovascular: Reports no additional cardiovascular complaints Respiratory: Respiratory: Reports no additional respiratory complaints and Reports no additional respiratory complaints Gastrointestinal: Gastrointestinal: Reports as per HPI and Reports no additional gastrointestinal complaints Musculoskeletal: Musculoskeletal: Reports no additional musculoskeletal complaints Integumentary/Breasts: Skin/Breast: Reports system reviewed and no additional complaints, except as docu and Reports as per HPI Neurologic: Reports system reviewed and no additional complaints, except as documented, Reports as per HPI and Reports Normal hearing present Psychiatric: Psychiatric: Reports no additional psychiatric complaints and Reports as per HPI Endocrine: Endocrine: Reports no additional endocrine complaints Hematologic/Lymphatic: Hematologic/Lymphatic: Reports no additional hematologic/lymphatic complaints Allergic/Immunologic: Allergic/Immunologic: Reports no additional allergic/immunologic complaints [facility] Past Medical History Medical History ADD (attention deficit disorder) Chronic obstructive pulmonary disease PFTs 2010: 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 she with mild hypercarbia Ellen-Danlos syndrome Hyperglycemia with hemoglobin A1c of 5.2% May 2020 Lipedema Lymphedema Morbid obesity with BMI of 70 and over, adult Obstructive sleep apnea on CPAP polysomnogram 2016 recommend CPAP of 20 Surgical History Surgical History History of tonsillectomy Family History Family History (Updated 02/07/21 @ 20:46 by Dee Echavarria NP) Father Hypertension Family history of elevated blood lipids Family history of cardiovascular disease Cerebrovascular accident Malignant neoplasm of prostate Sibling Hypertension Family history of coronary artery disease Diabetes mellitus Family history of elevated blood lipids Family history of cardiovascular disease Mother Hypertension Family history of elevated blood lipids Leukemia Social History Social History (Updated 02/07/21 @ 20:48 by Dee Echavarria NP) Social History: The patient quit smoking on 01/17/2020. The patient is now disabled. She used to work for [employer] dispatcher. Surrogate decision maker: Daria Mccann, . Code status: Full code. Smoking packs per day: 2 Smoking cigarettes per day: 40.0 Years smoked: 28 Smoking pack-years: 56.00 Smoking status: Former smoker Tobacco type: cigarettes Second hand tobacco smoke exposure: No Smoking end date: 01/17/20 Alcohol intake: never Alcohol use details: rare Substance use: never Substance use type: does not use Additional living arrangements com
[2021-02-07 22:30] VITALS: BP 145/79; PULSE 80; RESP 20; TEMP 36.3; O2SAT 95
[2021-02-07 23:31] VITALS: PULSE 77; O2SAT 98
[2021-02-08 06:00] VITALS: BP 139/70; PULSE 78; RESP 18; TEMP 37.1; O2SAT 95
[2021-02-08 06:07] LABS: Basophils Percent Auto 0.6 % (0.2-1.2); Eosinophils Absolute Auto 0.1 K/mm3 (0-0.3); Hemoglobin 10.9 g/dL (12.0-15.0); Immature Granulocyte Absolute 0.06 K/mm3 (0.00-0.031); Immature Granulocyte Percent A 0.9 % (0-0.5); Lymphocytes Absolute Auto 0.99 K/mm3 (0.9-3.2); Lymphocytes Percent Auto 15.6 % (18.3-44.2); Mean Corpuscular HGB Conc 31.1 g/dl (32-36); Mean Corpuscular Hemoglobin 27.6 pg (26-34); Mean Corpuscular Volume 88.6 fl (80-100); Mean Platelet Volume 9.5 fl (7.4-10.4); Monocytes Absolute Auto 0.5 K/mm3 (0.1-0.6); Monocytes Percent Auto 7.4 % (2.6-8.5); Neutrophils Absolute Auto 4.7 K/mm3 (1.3-6.7); Neutrophils Percent Auto 73.5 % (45.5-73.1); Platelet Count Result 226 k/mm3 (150-375); Red Blood Count 3.95 M/mm3 (4.2-5.4); Red Cell Distribution Width 14.2 % (11.5-14.5); White Blood Count 6.4 K/mm3 (4.5-10.0)
[2021-02-08 06:10] LABS: Lactic Acid Reflex 1.1 mmol/L (0.7-2.1)
[2021-02-08 06:14] LABS: Anion Gap 8 mmol/L (8-16); Blood Urea Nitrogen 9 mg/dL (7-17); CRP 3.2 mg/dL (<1.0); Calcium 8.4 mg/dL (8.4-10.2); Carbon Dioxide 26 mmol/L (22-30); Chloride 107 mmol/L (98-107); Estimated CRCL calculation 166 ml/min; Estimated Glomerular Filt Rate > 60; Glucose 139 mg/dL (65-110); Magnesium 1.9 mg/dL (1.6-2.3); Potassium 4.1 mmol/L (3.4-5.0); Sodium 141 mmol/L (137-145)
[2021-02-08 08:00] VITALS: PULSE 71; RESP 18; O2SAT 96
[2021-02-08] MEDS: ENOXAPARIN 40 MG/0.4 ML SYRINGE SUB-Q (09:00)
--- NOTE | 2021-02-08 12:55 | PM.IMPN ---
Progress Note: A&P Assessment and Plan (1) Cellulitis of left thigh: Code(s): L03.116 - Cellulitis of left lower limb Status: Acute Assessment and Plan: As per antibiotics stewardship I started the patient on cefazolin. Wound and blood cultures are pending. The patient had failed outpatient Keflex Continue monitoring cellulitis improvement could possibly D/c in 1-2 days depending on improvement. (2) Obstructive sleep apnea on CPAP: Code(s): G47.33 - Obstructive sleep apnea (adult) (pediatric); Z99.89 - Dependence on other enabling machines and devices Status: Chronic Assessment and Plan: Continue with patient's home CPAP she did bring her own. (3) Morbid obesity with BMI of 70 and over, adult: Code(s): E66.01 - Morbid (severe) obesity due to excess calories; Z68.45 - Body mass index [BMI] 70 or greater, adult Status: Chronic Assessment and Plan: Patient may need to talk to a dietitian. Has been consulted. (4) Lymphedema: Code(s): I89.0 - Lymphedema, not elsewhere classified Status: Chronic Assessment and Plan: The patient stated that she has been to a lipidema and lymphedema clinic several times and it has not helped. The patient may need to do wraps to her lower extremities. (5) COPD (chronic obstructive pulmonary disease): Code(s): J44.9 - Chronic obstructive pulmonary disease, unspecified Status: Acute Assessment and Plan: Continue with inhaler Time Spent With Patient Time with patient: 25 - 35 minutes Subjective Date/time seen: 02/08/21 12:55 Interval history: Date of service 02/08/2021: Patient reports her recurrent cellulitis flare again. She was on Keflex for few days at home but symptoms or becoming worse along with fevers and chills. Since coming in, her symptoms have improved, pain, redness, swelling. She denies any more fevers or chills since arrival. She does report a headache with photophobia today. This is something she has occasionally and believes is due to her acute infection. She is going to be lunch in and take a nap. She does want some Tylenol. Denies any chest pain, shortness of breath, cough, nausea, vomiting, abdominal pain, leg swelling, calf pain or any other symptoms at this time. Review of Systems Review of Systems: All systems reviewed & are unremarkable except as noted in HPI and below Exam Narrative: General: Morbidly obese 45 year-old woman sitting up in bed eating lunch. Appears comfortable. In no acute distress. Skin: Left hip with erythema, warmth to lateral aspect, one site of clear drainage noted. Tenderness to palpation. No jaundice or cyanosis. Good skin turgor. Neck: Full range of motion. Supple. Respiratory: Lungs are clear to auscultation bilaterally. No bony chest wall tenderness. Cardiovascular: The heart has a regular rate and rhythm without murmur. Lower extremities: No pitting lower extremity edema. Distal pulses are easily palpated. No calf tenderness to palpation. Gastrointestinal: The abdomen is soft, nontender and nondistended with active bowel sounds. Psychiatric: Lucid and oriented. Memory intact. Neurologic: No focal deficits. Speech is clear. No facial drooping. Objective Data Vital Signs Vital Signs: Vital Signs - 24 hr 02/07/21 13:55 02/07/21 15:00 02/07/21 22:30 Temperature 97.9 F 97.3 F L Pulse Rate 73 77 80 Respiratory Rate 18 18 20 Blood Pressure 138/82 144/87 H 145/79 H Pulse Oximetry 97 96 95 02/07/21 23:31 02/08/21 06:00 02/08/21 08:00 Temperature 98.7 F Pulse Rate 77 78 71 Respiratory Rate 18 18 Blood Pressure 139/70 Pulse Oximetry 98 95 96 Intake/Output Intake/Output: Intake & Output 02/05/21 02/06/21 02/07/21 02/08/21 23:59 23:59 23:59 23:59 Intake Total 1340 1050 Output Total 350 1500 Balance 990 -450 Meds/Results Medications: Active Medications Generic Name Dose Route S
[2021-02-08 13:01] VITALS: BP 154/82; PULSE 73; RESP 18; TEMP 36.7; O2SAT 98
[2021-02-08 22:00] VITALS: BP 153/94; PULSE 80; RESP 18; TEMP 36.1; O2SAT 97
[2021-02-09 05:50] LABS: Basophils Absolute Auto 0.1 K/mm3 (0.0-0.1); Basophils Percent Auto 0.9 % (0.2-1.2); Eosinophils Absolute Auto 0.1 K/mm3 (0-0.3); Eosinophils Percent Auto 1.9 % (0-4.4); Hematocrit 37.1 % (37.0-47.0); Hemoglobin 11.4 g/dL (12.0-15.0); Immature Granulocyte Absolute 0.07 K/mm3 (0.00-0.031); Lymphocytes Absolute Auto 1.13 K/mm3 (0.9-3.2); Lymphocytes Percent Auto 16.1 % (18.3-44.2); Mean Corpuscular HGB Conc 30.7 g/dl (32-36); Mean Corpuscular Hemoglobin 26.8 pg (26-34); Mean Corpuscular Volume 87.3 fl (80-100); Mean Platelet Volume 9.5 fl (7.4-10.4); Monocytes Absolute Auto 0.5 K/mm3 (0.1-0.6); Monocytes Percent Auto 7.3 % (2.6-8.5); Neutrophils Absolute Auto 5.1 K/mm3 (1.3-6.7); Neutrophils Percent Auto 72.8 % (45.5-73.1); Platelet Count Result 259 k/mm3 (150-375); Red Blood Count 4.25 M/mm3 (4.2-5.4); Red Cell Distribution Width 14.1 % (11.5-14.5)
[2021-02-09 06:00] VITALS: BP 151/89; PULSE 72; RESP 20; TEMP 36.2; O2SAT 95
[2021-02-09 06:22] LABS: Anion Gap 8 mmol/L (8-16); Blood Urea Nitrogen 12 mg/dL (7-17); CRP 2.4 mg/dL (<1.0); Calcium 8.8 mg/dL (8.4-10.2); Carbon Dioxide 27 mmol/L (22-30); Chloride 104 mmol/L (98-107); Estimated CRCL calculation 191 ml/min; Estimated Glomerular Filt Rate > 60; Glucose 145 mg/dL (65-110); Potassium 4.1 mmol/L (3.4-5.0); Sodium 139 mmol/L (137-145)
[2021-02-09 07:39] VITALS: PULSE 72; RESP 20; O2SAT 95
[2021-02-09] MEDS: ENOXAPARIN 40 MG/0.4 ML SYRINGE SUB-Q (08:02)
[2021-02-09] MEDS: ACETAMINOPHEN 325 MG TABLET 650 MG PO ×2 (10:35→21:42)
--- NOTE | 2021-02-09 11:10 | PM.IMPN ---
Progress Note: A&P Assessment and Plan (1) Cellulitis of left thigh: Code(s): L03.116 - Cellulitis of left lower limb Status: Acute Assessment and Plan: As per antibiotics stewardship I started the patient on cefazolin. Wound culture showing mixed bacteria cornelius. Blood cultures showed no growth at this time. The patient had failed outpatient Keflex Continue monitoring cellulitis improvement could possibly D/c in 1-2 days depending on improvement. (2) Obstructive sleep apnea on CPAP: Code(s): G47.33 - Obstructive sleep apnea (adult) (pediatric); Z99.89 - Dependence on other enabling machines and devices Status: Chronic Assessment and Plan: Continue with patient's home CPAP she did bring her own. (3) Morbid obesity with BMI of 70 and over, adult: Code(s): E66.01 - Morbid (severe) obesity due to excess calories; Z68.45 - Body mass index [BMI] 70 or greater, adult Status: Chronic Assessment and Plan: Patient may need to talk to a dietitian. Has been consulted. (4) Lymphedema: Code(s): I89.0 - Lymphedema, not elsewhere classified Status: Chronic Assessment and Plan: The patient stated that she has been to a lipidema and lymphedema clinic several times and it has not helped. The patient may need to do wraps to her lower extremities. (5) COPD (chronic obstructive pulmonary disease): Code(s): J44.9 - Chronic obstructive pulmonary disease, unspecified Status: Acute Assessment and Plan: Continue with inhaler (6) Pain, dental: Code(s): K08.89 - Other specified disorders of teeth and supporting structures Status: Acute Assessment and Plan: Patient having increased pain to her left upper tooth. Will start her on Augmentin for 7 days and to continue with Tylenol, T3 as needed for pain. She has an appointment with her dentist in the next few weeks. I told her call sooner to trying get in and get this taken care of. She states this has been cracked for years and she has been using [id number] medications better no longer working. Subjective Date/time seen: 02/09/21 11:10 Interval history: Date of service 02/09/2021: Patient reports her recurrent cellulitis flare again. She was on Keflex for few days at home but symptoms or becoming worse along with fevers and chills. Since coming in, her symptoms have improved, pain, redness, swelling. She denies any more fevers or chills since arrival. She is still having pain and some drainage from an area and thinking one more day of IV Abx will be benificial. She also reports dental pain, and needing to go to the dentist. She is having some facial pain to her left side with the top dental tooth. She reports having a dental appointment in the next few weeks. Denies any chest pain, shortness of breath, cough, nausea, vomiting, abdominal pain, leg swelling, calf pain or any other symptoms at this time. Review of Systems Review of Systems: All systems reviewed & are unremarkable except as noted in HPI and below Exam Narrative: General: Morbidly obese 45 year-old woman sitting up in bed with her CPAP machine on taking a nap. Appears comfortable. In no acute distress. Mouth: Left 1st molar is broken in half, with some erythema to gums and visualization of base. Tender to palpation left maxillary sinus. Skin: Left hip with much improved erythema, slight warmth to lateral aspect, one site of clear drainage noted. Tenderness to palpation. No jaundice or cyanosis. Good skin turgor. Neck: Full range of motion. Supple. Respiratory: Lungs are clear to auscultation bilaterally. No bony chest wall tenderness. Cardiovascular: The heart has a regular rate and rhythm without murmur. Lower extremities: No pitting lower extremity edema. Distal pulses are easily palpated. No calf tenderness to palpation. Gastrointestinal:
[2021-02-09] MEDS: AMOXICILLIN/CLAVULANATE K 875-125 MG TAB 1 TABLET PO ×2 (11:39→21:33)
[2021-02-09 14:00] VITALS: BP 124/62; PULSE 78; RESP 14; TEMP 36.9; O2SAT 95
[2021-02-09] MEDS: MUPIROCIN 2% OINT 22 GM TUBE 1 APPLIC TOPICAL (14:03)
[2021-02-09] MEDS: SACCHAROMYCES BOULARDII 250 MG CAPSULE PO (16:29)
[2021-02-09 22:00] VITALS: BP 141/66; PULSE 84; RESP 20; TEMP 36.2; O2SAT 96
[2021-02-10 01:18] VITALS: PULSE 75; O2SAT 97
[2021-02-10 06:00] VITALS: BP 144/65; PULSE 71; RESP 18; TEMP 36.1; O2SAT 95
[2021-02-10] MEDS: MUPIROCIN 2% OINT 22 GM TUBE 1 APPLIC TOPICAL (08:59)
[2021-02-10] MEDS: AMOXICILLIN/CLAVULANATE K 875-125 MG TAB 1 TABLET PO (08:59)
[2021-02-10] MEDS: ENOXAPARIN 40 MG/0.4 ML SYRINGE SUB-Q (08:59)
[2021-02-10] MEDS: SACCHAROMYCES BOULARDII 250 MG CAPSULE PO ×2 (08:59→15:45)
--- NOTE | 2021-02-10 11:53 | PM.DS ---
DS: Admitting Diagnosis Discharge Date 02/10/21 Admitting Diagnosis Cellulitis DS: Discharge Diagnosis Discharge Diagnosis (1) Cellulitis of left thigh: Code(s): L03.116 - Cellulitis of left lower limb Status: Acute Assessment and Plan: The patient is a 45-year-old woman with history of lipedema/lymphedema, recurrent cellulitis infections, who presented to the emergency room with worsening redness, pain, warmth associated fevers and chills for the last few days. The patient had recurrence of her cellulitis to her left hip which is usually the site. She was given oral antibiotics by her primary care provider with only worsening symptoms. She came to the ER for further evaluation. Initial vitals showed elevated blood pressure 141/74, heart rate 76, increased respiratory rate in 24, normal oxygenation on room air, afebrile. Labs show normal white blood cell count, normocytic anemia with a hemoglobin of 10, elevated neutrophils 73%, BMP normal other than slight elevation of glucose at 139. Elevated CRP at 3.2. Normal TSH. X-ray hip show mild left hip osteoarthritis. She was admitted in the hospital and started on IV antibiotics for acute cellulitis infection with IV cefazolin. The patient slowly improved over the next few days and is feeling much better at this time. She was stable to be discharged home on a few more days of oral antibiotics to complete her 14 days. Return to ER warnings given. Instructions the patient to follow-up with her primary care provider within 1 week. She understands and agrees the plan all questions answered. Patient having increased pain to her left upper tooth. Will start her on Augmentin for 7 days and to continue with Tylenol, T3 as needed for pain. She has an appointment with her dentist in the next few weeks. I told her call sooner to trying get in and get this taken care of. She states this has been cracked for years and she has been using [id number] medications better no longer working. (2) Obstructive sleep apnea on CPAP: Code(s): G47.33 - Obstructive sleep apnea (adult) (pediatric); Z99.89 - Dependence on other enabling machines and devices Status: Chronic Assessment and Plan: Continue with patient's home CPAP she did bring her own. (3) Morbid obesity with BMI of 70 and over, adult: Code(s): E66.01 - Morbid (severe) obesity due to excess calories; Z68.45 - Body mass index [BMI] 70 or greater, adult Status: Chronic Assessment and Plan: Dietitian was consulted. (4) Lymphedema: Code(s): I89.0 - Lymphedema, not elsewhere classified Status: Chronic Assessment and Plan: The patient stated that she has been to a lipidema and lymphedema clinic several times, will need follow-up The patient may need to do wraps to her lower extremities. (5) COPD (chronic obstructive pulmonary disease): Code(s): J44.9 - Chronic obstructive pulmonary disease, unspecified Status: Acute Assessment and Plan: Continue with inhaler (6) Pain, dental: Code(s): K08.89 - Other specified disorders of teeth and supporting structures Status: Acute Assessment and Plan: DS: Summary Hospital Course Reason for hospitalization: Hospital Course: see above Status at Discharge Cognitive/behavioral status at discharge: Stable, improved. Time Spent with Patient Time attestation: Total time spent providing and/or coordinating discharge services: Time spent: Greater than 30 minutes Exam Narrative: General: Morbidly obese 45 year-old woman sitting up in bed with her CPAP machine on taking a nap. Appears comfortable. In no acute distress. Mouth: Left 1st molar is broken in half, with some erythema to gums and visualization of base. Tender to palpation left maxillary sinus. Skin: Left hip with much improved erythema, slight warmth to lateral aspect
[2021-02-10 14:00] VITALS: BP 142/78; PULSE 71; RESP 20; TEMP 35.6; O2SAT 95
== END 2021-02-10 16:00 | disposition home or self-care (01) | DRG 383 ==
LOC: ANHED 13:03 → ANHCPC 02-08 07:18
PROVIDERS: Nurse Practitioner; Admitting Provider Internal Medicine; Emergency Provider Family Medicine; PCP Family Medicine; Visit Provider Physician Assistant
DX: L03.116 Cellulitis of left lower limb (principal); B95.1 Streptococcus, group B, as the cause of diseases classified elsewhere; G47.33 Obstructive sleep apnea (adult) (pediatric); I89.0 Lymphedema, not elsewhere classified; J44.9 Chronic obstructive pulmonary disease, unspecified; K08.89 Other specified disorders of teeth and supporting structures; D64.9 Anemia, unspecified; F98.8 Other specified behavioral and emotional disorders with onset usually occurring in childhood and adolescence; E66.01 Morbid (severe) obesity due to excess calories; Z68.45 Body mass index [BMI] 70 or greater, adult; Q79.60 Ehlers-Danlos syndrome, unspecified; Z87.891 Personal history of nicotine dependence
CPT/HCPCS: 36415; 73502; 80048; 80053; 83605; 83735; 84443; 85025; 86140; 87040; 87070; 87147; 87205; 94002; 97116; 97161; 97165; 97530; 99285; A9270; J0690; J0692; J1650; J7030

== ENCOUNTER 2021-04-18 17:10 | Inpatient (IN) | payer BC, SELFPAY ==
[2021-04-18] VITALS (23 sets, daily range): BP systolic 82–122; BP diastolic 37–97; PULSE 92–115; RESP 19–35; TEMP 36.7–38.2; O2SAT 93–97; BMI 82.4
--- NOTE | ~2021-04-18 | XR_ITS ---
EXAMINATION: XR chest 1V portable INDICATION: Shortness of breath TECHNIQUE: Portable AP chest at 0756 hours COMPARISON: 06/14/2020 FINDINGS: The lungs are free of acute opacities. There is no pleural effusion or pneumothorax. The ca rdiomediastinal silhouette is normal. The visualized bones and soft tissues are unremarkable. IMPRESSION: 1. No acute cardiopulmonary abnormality. Reviewed, dictated and finalized at location A. [employer]
--- NOTE | 2021-04-18 17:19 | ECG_ITS ---
Measurements Intervals [place] Rate: 113 P: 82 MA: 192 QRS: -19 QRSD: 99 T: -66 QT: 311 QTc: 427 Interpretive Statements SINUS TACHYCARDIA INCOMPLETE RIGHT BUNDLE BRANCH BLOCK BORDERLINE R WAVE PROGRESSION, ANTERIOR LEADS INFERIOR INFARCT, AGE INDETERMINATE BASELINE ARTIFACT- I, II, AVR, AVL, AVF, V1-V6 ABNORMAL ECG Electronically Signed On 04-18-2021 20:09:50 GUEST ASSOCIATE by Vargas Mo D.O.
--- NOTE | 2021-04-18 18:45 | ED.GENADULT ---
HPI - General Adult General Chief complaint: Nausea/Vomiting/Diarrhea Stated complaint: cellulitis Time Seen by Provider: 04/18/21 18:42 Source: patient Related Data Home Medications Medication Instructions Recorded Confirmed albuterol sulfate 0.63 mg INHALATION Q6H PRN 01/19/20 02/07/21 Allergies Allergy/AdvReac Type Severity Reaction Status Date / Time capsaicin Allergy Severe Difficulty Verified 04/18/21 19:57 Breathing; swelling adhesive Allergy Mild unknown Verified 04/18/21 19:57 prochlorperazine Allergy Mild unknown Verified 04/18/21 19:57 vancomycin AdvReac Hives Verified 04/18/21 19:57 [facility] Past Medical History Medical History ADD (attention deficit disorder) Chronic obstructive pulmonary disease PFTs 2010: 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 she with mild hypercarbia Ellen-Danlos syndrome Hyperglycemia with hemoglobin A1c of 5.2% May 2020 Lipedema Lymphedema Morbid obesity with BMI of 70 and over, adult Obstructive sleep apnea on CPAP polysomnogram 2016 recommend CPAP of 20 Surgical History Surgical History History of tonsillectomy Family History Family History (Updated 02/07/21 @ 20:46 by Dee Echavarria NP) Father Hypertension Family history of elevated blood lipids Family history of cardiovascular disease Cerebrovascular accident Malignant neoplasm of prostate Sibling Hypertension Family history of coronary artery disease Diabetes mellitus Family history of elevated blood lipids Family history of cardiovascular disease Mother Hypertension Family history of elevated blood lipids Leukemia Social History Social History (Updated 02/07/21 @ 20:48 by Dee Echavarria NP) Social History: The patient quit smoking on 01/17/2020. The patient is now disabled. She used to work for [employer]. Surrogate decision maker: Daria Mccann, . Code status: Full code. Smoking packs per day: 2 Smoking cigarettes per day: 40.0 Years smoked: 28 Smoking pack-years: 56.00 Smoking status: Former smoker Tobacco type: cigarettes Second hand tobacco smoke exposure: No Smoking end date: 01/17/20 Alcohol intake: never Alcohol use details: rare Substance use: never Substance use type: does not use Additional living arrangements comments: Resides with her spouse and their 10-year-old twins (1 girl and 1 that is transgender) in [place]. 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 Gender identity (if verbalized by the patient): Female Sexual Orientation (if Verbalized by the Patient): Lesbian, Mcgarry, or Homosexual Spiritual care concerns: No Agree to blood products: Yes Course Vital Signs Vital signs: Vital Signs Temperature 37.2 C 04/18/21 17:16 Pulse Rate 110 H 04/18/21 17:16 Respiratory Rate 24 H 04/18/21 17:16 Blood Pressure 122/65 04/18/21 17:16 Pulse Oximetry 96 04/18/21 17:16 Temperature 37.2 C 04/18/21 17:16 Pulse Rate 110 H 04/18/21 17:16 Respiratory Rate 24 H 04/18/21 17:16 Blood Pressure 122/65 04/18/21 17:16 Pulse Oximetry 96 04/18/21 17:16 Medical Decision Making Vital Signs Vital Signs: Vital Signs Temperature 37.2 C 04/18/21 17:16 Pulse Rate 110 H 04/18/21 17:16 Respiratory Rate 24 H 04/18/21 17:16 Blood Pressure 122/65 04/18/21 17:16 Pulse Oximetry 96 04/18/21 17:16 Temperature 37.2 C 04/18/21 17:16 Pulse Rate 110 H 04/18/21 17:16 Respiratory Rate 24 H 04/18/21 17:16 Blood Pressure 122/65 04/18/21 17:16 Pulse Oximetry 96 04/18/21 17:16 Discharge Plan Discharge Clinical Impression: Morbid obesity with BMI of 70 and over, adult, Cellulitis of left thigh Patient Disposition: Still
[2021-04-18 19:25] LABS: Hematocrit 38.7 % (37.0-47.0); Hemoglobin 12.5 g/dL (12.0-15.0); Mean Corpuscular HGB Conc 32.3 g/dl (32-36); Mean Corpuscular Hemoglobin 28.2 pg (26-34); Mean Corpuscular Volume 87.4 fl (80-100); Mean Platelet Volume 9.6 fl (7.4-10.4); Platelet Count Result 250 k/mm3 (150-375); Red Blood Count 4.43 M/mm3 (4.2-5.4); Red Cell Distribution Width 13.6 % (11.5-14.5); White Blood Count 23.9 K/mm3 (4.5-10.0)
[2021-04-18 19:34] LABS: INR 1.1
[2021-04-18 19:35] LABS: Partial Thromboplastin Time 28.7 SECONDS (22.3-36.8)
[2021-04-18 19:52] LABS: Band Neutrophils Percent 7 % (0-6); Lymphocytes Absolute Manual 0.71 K/mm3 (1.1-4.5); Monocytes Absolute Manual 1.43 K/mm3 (0.1-0.90); Monocytes Percent Manual 6 % (3-9); Neutrophils Absolute Manual 21.74 K/mm3 (1.7-7.2); Neutrophils Percent Manual 84 % (46-73); Platelet Estimate Adequate (Adequate); Total Cells Counted 100
[2021-04-18 19:57] LABS: Alanine Aminotransferase 27 U/L (4-35); Albumin Level 4.4 g/dL (3.5-5.1); Alkaline Phosphatase 82 U/L (38-126); Anion Gap 8 mmol/L (8-16); Aspartate Amino Transferase 36 U/L (14-36); Bilirubin,Total 0.7 mg/dL (0.2-1.3); Blood Urea Nitrogen 13 mg/dL (7-17); CRP 5.7 mg/dL (<1.0); Calcium 9.4 mg/dL (8.4-10.2); Carbon Dioxide 26 mmol/L (22-30); Chloride 100 mmol/L (98-107); Estimated CRCL calculation 148 ml/min; Estimated Glomerular Filt Rate > 60; Glucose 158 mg/dL (65-110); Potassium 3.6 mmol/L (3.4-5.0); Sodium 134 mmol/L (137-145)
--- NOTE | 2021-04-18 20:08 | PC.NURSE ---
zofran and tylenol switched from PO to IV with permission of Dr Mansfield.
[2021-04-18] MEDS: ceFAZolin 2 GM/D5W 50 ML 2 GM/50 ML BAG IVPB (20:37)
[2021-04-18] MEDS: SODIUM CHLORIDE 0.9% IV 1,000 ML 999 ML IV CONT (20:38)
[2021-04-18] MEDS: KETOROLAC 30 MG/ML VIAL (*BKC) IV PUSH (20:39)
[2021-04-18] MEDS: ONDANSETRON INJ 4 MG/2 ML VIAL IV PUSH (20:39)
--- NOTE | 2021-04-18 22:38 | ADMGEN ---
This patient, Erin Mccann, was admitted to 2 Medical Room 260-. Patient/family oriented to hospital policies and general routines including ID bracelet, bed and alarms, visiting hours, pain management, procedures, bathroom and other care routines, personal items, smoking policy, room service/diet, and visiting hours. Information on how to activate the Rapid Response Team has been discussed. Patient/Family are encouraged to report perceived risks to care and to ask questions if they do not understand what they are told or what they should do.
[2021-04-18] MEDS: SODIUM CHLORIDE 0.9% IV 1,000 ML 125 ML IV CONT (23:16)
[2021-04-19] VITALS (8 sets, daily range): BP systolic 116–139; BP diastolic 51–71; PULSE 81–84; RESP 17–20; TEMP 36.1–37.1; O2SAT 95–97
--- NOTE | 2021-04-19 00:08 | PM.IMHP ---
H&P: HPI History of Present Illness Date/Time: 04/19/21 00:08 Chief Complaint: Nausea vomiting left thigh cellulitis Narrative: This is a 45-year-old female who has a history of morbid obesity, lymphedema and recurrent cellulitis of the left thigh area history of COPD and CAMILLE on CPAP presents to the ED with nausea and vomiting several episodes and fever chills for past few days. She started noticing redness in her left upper thigh area where she normally gets recurrent cellulitis attack. She was noted to have leukocytosis of 23,000 with left shift and bands lactate normal CRP elevated at 5.7. She was also noted febrile on admission. She is getting admitted for further evaluation and management. Review of Systems Review of Systems: - CONSTITUTIONAL: Denies weight loss, reports fever and chills. - HEENT: Denies changes in vision and hearing - RESPIRATORY: Denies SOB and cough. - CV: Denies palpitations and CP. - GI: Reports abdominal pain, nausea, vomiting and denies diarrhea. - : Denies dysuria and urinary frequency. - MSK: Denies myalgia and joint pain. - SKIN: Denies rash and pruritus. - NEUROLOGICAL: Denies headache and syncope. - PSYCHIATRIC: Denies recent changes in mood. Denies anxiety and depression. 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 she with mild hypercarbia Ellen-Danlos syndrome Hyperglycemia with hemoglobin A1c of 5.2% May 2020 Lipedema Lymphedema Morbid obesity with BMI of 70 and over, adult Obstructive sleep apnea on CPAP polysomnogram 2016 recommend CPAP of 20 Surgical History Surgical History History of tonsillectomy Family History Family History (Updated 02/07/21 @ 20:46 by Dee Echavarria NP) Father Hypertension Family history of elevated blood lipids Family history of cardiovascular disease Cerebrovascular accident Malignant neoplasm of prostate Sibling Hypertension Family history of coronary artery disease Diabetes mellitus Family history of elevated blood lipids Family history of cardiovascular disease Mother Hypertension Family history of elevated blood lipids Leukemia Social History Social History (Updated 02/07/21 @ 20:48 by Dee Echavarria NP) Social History: The patient quit smoking on 01/17/2020. The patient is now disabled. She used to work for [employer]. Surrogate decision maker: Daria Mccann, . Code status: Full code. Smoking packs per day: 2 Smoking cigarettes per day: 40.0 Years smoked: 28 Smoking pack-years: 56.00 Smoking status: Former smoker Tobacco type: cigarettes Second hand tobacco smoke exposure: No Smoking end date: 01/17/20 Alcohol intake: never Alcohol use details: rare Substance use: never Substance use type: does not use Additional living arrangements comments: Resides with her spouse and their 10-year-old twins (1 girl and 1 that is transgender) in [place]. 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 Gender identity (if verbalized by the patient): Female Sexual Orientation (if Verbalized by the Patient): Lesbian, Mcgarry, or Homosexual Spiritual care concerns: No Agree to blood products: Yes Meds Home Medications and Allergies Allergies Allergy/AdvReac Type Severity Reaction Status Date / Time capsaicin Allergy Severe Difficulty Verified 04/19/21 00:02 Breathing; swelling adhes
[2021-04-19 05:45] LABS: Basophils Absolute Auto 0.1 K/mm3 (0.0-0.1); Basophils Percent Auto 0.3 % (0.2-1.2); Eosinophils Percent Auto 0.1 % (0-4.4); Hematocrit 32.6 % (37.0-47.0); Hemoglobin 10.6 g/dL (12.0-15.0); Immature Granulocyte Absolute 0.09 K/mm3 (0.00-0.031); Immature Granulocyte Percent A 0.5 % (0-0.5); Lymphocytes Absolute Auto 1.02 K/mm3 (0.9-3.2); Lymphocytes Percent Auto 5.7 % (18.3-44.2); Mean Corpuscular HGB Conc 32.5 g/dl (32-36); Mean Corpuscular Volume 86.2 fl (80-100); Mean Platelet Volume 9.1 fl (7.4-10.4); Monocytes Percent Auto 5.7 % (2.6-8.5); Neutrophils Absolute Auto 15.6 K/mm3 (1.3-6.7); Neutrophils Percent Auto 87.7 % (45.5-73.1); Platelet Count Result 226 k/mm3 (150-375); Red Blood Count 3.78 M/mm3 (4.2-5.4); Red Cell Distribution Width 13.7 % (11.5-14.5); White Blood Count 17.8 K/mm3 (4.5-10.0)
[2021-04-19 06:14] LABS: Anion Gap 8 mmol/L (8-16); Blood Urea Nitrogen 17 mg/dL (7-17); Calcium 8.4 mg/dL (8.4-10.2); Carbon Dioxide 27 mmol/L (22-30); Chloride 99 mmol/L (98-107); Estimated CRCL calculation 133 ml/min; Estimated Glomerular Filt Rate > 60; Glucose 131 mg/dL (65-110); Potassium 3.5 mmol/L (3.4-5.0); Sodium 134 mmol/L (137-145)
[2021-04-19] MEDS: SODIUM CHLORIDE 0.9% IV 1,000 ML 125 ML IV CONT (07:16)
[2021-04-19] MEDS: PANTOPRAZOLE SODIUM IV 40 MG VIAL IV PUSH (08:21)
--- NOTE | 2021-04-19 15:43 | PM.IMPN ---
Progress Note: A&P Assessment and Plan (1) Cellulitis of left thigh: Code(s): L03.116 - Cellulitis of left lower limb Status: Acute Assessment and Plan: The patient is a 45-year-old woman with history of lipedema/lymphedema, recurrent cellulitis infections, CAMILLE on CPAP, who presented to the emergency room with worsening redness, pain, warmth to left thigh with associated nausea, vomiting, fevers and chills for the last few days. The patient had recurrence of her cellulitis to her left hip which is usually the site. Initial vitals showed stable blood pressure 122/65, tachycardic heart rate 122, increased respiratory rate in 24, normal oxygenation on room air, and low grade fever 99F. Labs show leukocytosis at 23,900 with elevated neutrophils and bands, normal H&H. Normal coag panel. Slight hyponatremia 134, Lactic 2.0. Normal LFTs. Elevated CRP at 5.7. Patient was admitted for sepsis due to acute cellulitis placed on IV cefazolin and IV fluids with improvement of her blood pressure and tachycardia. Acute sepsis was met with tachycardia, hypotension, leukocytosis, in the setting of acute cellulitis Blood cultures were obtained and pending Given IV fluid hydration with improvement of her vitals Continue with IV cefazolin for cellulitis Continue monitoring daily for improvement and improvement of her white blood cell count. (2) Sepsis: Qualifiers: Sepsis acute organ dysfunction status: without acute organ dysfunction Sepsis type: sepsis due to unspecified organism Qualified Code(s): A41.9 - Sepsis, unspecified organism Code(s): A41.9 - Sepsis, unspecified organism Status: Acute Assessment and Plan: See above. (3) Obstructive sleep apnea on CPAP: Code(s): G47.33 - Obstructive sleep apnea (adult) (pediatric); Z99.89 - Dependence on other enabling machines and devices Status: Chronic Assessment and Plan: Will order CPAP to be used at night (4) Morbid obesity with BMI of 70 and over, adult: Code(s): E66.01 - Morbid (severe) obesity due to excess calories; Z68.45 - Body mass index [BMI] 70 or greater, adult Status: Chronic (5) Lymphedema: Code(s): I89.0 - Lymphedema, not elsewhere classified Status: Chronic Assessment and Plan: Chronic lipedema/lymphedema and has seen specialist in the past. Continues to have recurrent cellulitis infection and requiring hospitalization. May need to see her specialist again to see if there is anything that can be done to prevent further infections. (6) COPD (chronic obstructive pulmonary disease): Code(s): J44.9 - Chronic obstructive pulmonary disease, unspecified Status: Acute Assessment and Plan: Lungs are clear. Stable at this time. (7) Nausea and vomiting: Code(s): R11.2 - Nausea with vomiting, unspecified Status: Acute Assessment and Plan: Abdominal pain, nausea, vomiting most likely secondary to acute underlying infection. Started on IV PPI daily, PRN Zofran. Continue monitoring Additional Plan # DVT prophylaxis Lovenox # full code Time Spent With Patient Time with patient: 25 - 35 minutes Subjective Date/time seen: 04/19/21 15:43 Interval history: Date of service 04/19/2021: Patient reports still not feeling very well, fatigue, intermittent nausea, intermittent fevers and chills, unsure if her redness to her left hip has improved or not. Still has minimal appetite. She denies any chest pain, shortness of breath, cough, vomiting, leg swelling, calf pain, or any other symptoms at this time. Review of Systems Review of Systems: All systems reviewed & are unremarkable except as noted in HPI and below Exam Narrative: General: 45-year-old woman laying flat in bed, taking a nap with her CPAP machine on. Appears comfortable. In no acute distress. Skin: No jaundice or cyanosis. Good skin turgor. Neck: Full range of motio
[2021-04-19] MEDS: ACETAMINOPHEN 500 MG TABLET 1000 MG PO (23:16)
[2021-04-20] VITALS (10 sets, daily range): BP systolic 130–140; BP diastolic 66–76; PULSE 75–97; RESP 18–20; TEMP 36.4–37.2; O2SAT 95–98
[2021-04-20 05:45] LABS: Basophils Absolute Auto 0.1 K/mm3 (0.0-0.1); Basophils Percent Auto 0.7 % (0.2-1.2); Eosinophils Absolute Auto 0.1 K/mm3 (0-0.3); Hematocrit 34.6 % (37.0-47.0); Hemoglobin 11.5 g/dL (12.0-15.0); Immature Granulocyte Percent A 1.7 % (0-0.5); Lymphocytes Absolute Auto 1.24 K/mm3 (0.9-3.2); Lymphocytes Percent Auto 10.8 % (18.3-44.2); Mean Corpuscular HGB Conc 33.2 g/dl (32-36); Mean Corpuscular Hemoglobin 29.2 pg (26-34); Mean Corpuscular Volume 87.8 fl (80-100); Mean Platelet Volume 10.1 fl (7.4-10.4); Monocytes Absolute Auto 0.7 K/mm3 (0.1-0.6); Monocytes Percent Auto 6.1 % (2.6-8.5); Neutrophils Absolute Auto 9.2 K/mm3 (1.3-6.7); Neutrophils Percent Auto 79.7 % (45.5-73.1); Platelet Count Result 238 k/mm3 (150-375); Red Blood Count 3.94 M/mm3 (4.2-5.4); Red Cell Distribution Width 13.6 % (11.5-14.5); White Blood Count 11.5 K/mm3 (4.5-10.0)
[2021-04-20 06:03] LABS: Anion Gap 6 mmol/L (8-16); Blood Urea Nitrogen 12 mg/dL (7-17); Calcium 8.7 mg/dL (8.4-10.2); Carbon Dioxide 29 mmol/L (22-30); Chloride 103 mmol/L (98-107); Estimated CRCL calculation 167 ml/min; Estimated Glomerular Filt Rate > 60; Glucose 139 mg/dL (65-110); Magnesium 1.9 mg/dL (1.6-2.3); Potassium 3.5 mmol/L (3.4-5.0); Sodium 138 mmol/L (137-145)
[2021-04-20] MEDS: ENOXAPARIN 40 MG/0.4 ML SYRINGE SUB-Q (08:33)
[2021-04-20] MEDS: PANTOPRAZOLE SODIUM IV 40 MG VIAL IV PUSH (08:33)
--- NOTE | 2021-04-20 12:54 | PM.IMPN ---
Progress Note: A&P Assessment and Plan (1) Cellulitis of left thigh: Code(s): L03.116 - Cellulitis of left lower limb Status: Acute Assessment and Plan: The patient is a 45-year-old woman with history of lipedema/lymphedema, recurrent cellulitis infections, CAMILLE on CPAP, who presented to the emergency room with worsening redness, pain, warmth to left thigh with associated nausea, vomiting, fevers and chills for the last few days. The patient had recurrence of her cellulitis to her left hip which is usually the site. Initial vitals showed stable blood pressure 122/65, tachycardic heart rate 122, increased respiratory rate in 24, normal oxygenation on room air, and low grade fever 99F. Labs show leukocytosis at 23,900 with elevated neutrophils and bands, normal H&H. Normal coag panel. Slight hyponatremia 134, Lactic 2.0. Normal LFTs. Elevated CRP at 5.7. Patient was admitted for sepsis due to acute cellulitis placed on IV cefazolin and IV fluids with improvement of her blood pressure and tachycardia. Acute sepsis was met with tachycardia, hypotension, leukocytosis, in the setting of acute cellulitis Blood cultures shows no growth at this time Continue with IV cefazolin for cellulitis and is improving along with leukocytosis. Continue monitoring daily for improvement and improvement of her white blood cell count. (2) Suspected COVID-19 virus infection: Code(s): Z20.822 - Contact with and (suspected) exposure to COVID-19 Status: Acute Assessment and Plan: Patient's son became positive for COVID-19 on 04/19/2021. The patient has been vaccinated and had her booster shot. Patient has symptoms of increased fatigue, dry cough. Will put the patient in isolation for COVID-19 and swab her for PCR testing. Patient has had multiple cellulitis infections in usually she feels better at this time so I believe she does have COVID and just minimal symptoms currently. (3) Sepsis: Qualifiers: Sepsis acute organ dysfunction status: without acute organ dysfunction Sepsis type: sepsis due to unspecified organism Qualified Code(s): A41.9 - Sepsis, unspecified organism Code(s): A41.9 - Sepsis, unspecified organism Status: Acute Assessment and Plan: See above. (4) Obstructive sleep apnea on CPAP: Code(s): G47.33 - Obstructive sleep apnea (adult) (pediatric); Z99.89 - Dependence on other enabling machines and devices Status: Chronic Assessment and Plan: Will order CPAP to be used at night (5) Morbid obesity with BMI of 70 and over, adult: Code(s): E66.01 - Morbid (severe) obesity due to excess calories; Z68.45 - Body mass index [BMI] 70 or greater, adult Status: Chronic (6) Lymphedema: Code(s): I89.0 - Lymphedema, not elsewhere classified Status: Chronic Assessment and Plan: Chronic lipedema/lymphedema and has seen specialist in the past. Continues to have recurrent cellulitis infection and requiring hospitalization. May need to see her specialist again to see if there is anything that can be done to prevent further infections. (7) COPD (chronic obstructive pulmonary disease): Code(s): J44.9 - Chronic obstructive pulmonary disease, unspecified Status: Acute Assessment and Plan: Lungs are clear. Stable at this time. (8) Nausea and vomiting: Code(s): R11.2 - Nausea with vomiting, unspecified Status: Acute Assessment and Plan: Abdominal pain, nausea, vomiting most likely secondary to acute underlying infection. Started on IV PPI daily, PRN Zofran. Continue monitoring Additi
--- NOTE | 2021-04-20 14:20 | PC.NURSE ---
This patient, Erin Mccann, was received from [2 med] on 04/20/21 at 1415. Patient/family oriented to unit policies and routines
--- NOTE | 2021-04-20 14:26 | PC.NURSE ---
This patient, Erin Mccann, was transferred to [facility] on 04/20/21 at 1426. Personal belongings sent with patient. Report given to VIGNESH Leigh. Appropriate documentation sent with patient.
[2021-04-20] MEDS: ACETAMINOPHEN 500 MG TABLET 1000 MG PO (17:41)
[2021-04-21] VITALS (7 sets, daily range): BP systolic 128–145; BP diastolic 67–92; PULSE 74–87; RESP 16–20; TEMP 35.9–37.4; O2SAT 94–98
[2021-04-21] MEDS: ACETAMINOPHEN 500 MG TABLET 1000 MG PO ×2 (01:37→15:08)
[2021-04-21 06:28] LABS: Basophils Percent Auto 0.5 % (0.2-1.2); Eosinophils Absolute Auto 0.1 K/mm3 (0-0.3); Hematocrit 32.2 % (37.0-47.0); Hemoglobin 10.2 g/dL (12.0-15.0); Immature Granulocyte Absolute 0.07 K/mm3 (0.00-0.031); Immature Granulocyte Percent A 0.9 % (0-0.5); Lymphocytes Absolute Auto 1.07 K/mm3 (0.9-3.2); Lymphocytes Percent Auto 13.7 % (18.3-44.2); Mean Corpuscular HGB Conc 31.7 g/dl (32-36); Mean Corpuscular Volume 88.5 fl (80-100); Mean Platelet Volume 9.9 fl (7.4-10.4); Monocytes Absolute Auto 0.6 K/mm3 (0.1-0.6); Monocytes Percent Auto 7.7 % (2.6-8.5); Neutrophils Percent Auto 76.2 % (45.5-73.1); Platelet Count Result 224 k/mm3 (150-375); Red Blood Count 3.64 M/mm3 (4.2-5.4); Red Cell Distribution Width 13.8 % (11.5-14.5); White Blood Count 7.8 K/mm3 (4.5-10.0)
[2021-04-21 06:31] LABS: Anion Gap 5 mmol/L (8-16); Blood Urea Nitrogen 10 mg/dL (7-17); Calcium 8.6 mg/dL (8.4-10.2); Carbon Dioxide 31 mmol/L (22-30); Chloride 99 mmol/L (98-107); Estimated CRCL calculation 148 ml/min; Estimated Glomerular Filt Rate > 60; Glucose 135 mg/dL (65-110); Lactate Dehydrogenase 332 U/L (313-618); Magnesium 1.9 mg/dL (1.6-2.3); Potassium 3.5 mmol/L (3.4-5.0); Sodium 135 mmol/L (137-145)
[2021-04-21] MEDS: ENOXAPARIN 40 MG/0.4 ML SYRINGE SUB-Q (08:53)
[2021-04-21] MEDS: PANTOPRAZOLE SODIUM IV 40 MG VIAL IV PUSH (08:53)
[2021-04-21 08:57] LABS: CRP 14.2 mg/dL (<1.0)
--- NOTE | 2021-04-21 12:57 | PM.IMPN ---
Progress Note: A&P Assessment and Plan (1) Cellulitis of left thigh: Code(s): L03.116 - Cellulitis of left lower limb Status: Acute Assessment and Plan: Patient presented with worsening redness, pain, warmth to left thigh with associated nausea, vomiting, fevers and chills. She has had frequent cellulitis infections at the left hip in the past year. Continue IV Ancef Overall cellulitis appears to be slowly improving Blood cultures pending, negative to date Leukocytosis has resolved Continue with daily monitoring of the site for improvement. (2) Suspected COVID-19 virus infection: Code(s): Z20.822 - Contact with and (suspected) exposure to COVID-19 Status: Acute Assessment and Plan: Patient's son, with whom she had close contact, became positive for COVID-19 on 04/19/2021. Patient herself has symptoms of fatigue, aching, and cough. Isolation precautions implemented COVID-19 test is pending She is maintaining adequate O2 sats on room air, therefore at this time not a candidate for COVID-19 specific treatment including dexamethasone or remdesivir. CXR reviewed with no acute cardiopulmonary abnormalities Supportive care to include bronchodilators, expectorants, antipyretics, supplemental O2 as needed (3) Sepsis: Qualifiers: Sepsis acute organ dysfunction status: without acute organ dysfunction Sepsis type: sepsis due to unspecified organism Qualified Code(s): A41.9 - Sepsis, unspecified organism Code(s): A41.9 - Sepsis, unspecified organism Status: Acute Assessment and Plan: Met criteria for sepsis on presentation with tachycardia, hypotension, leukocytosis. Source of infection is cellulitis. Please see above for further details. Blood cultures pending, negative to date. (4) Obstructive sleep apnea on CPAP: Code(s): G47.33 - Obstructive sleep apnea (adult) (pediatric); Z99.89 - Dependence on other enabling machines and devices Status: Chronic Assessment and Plan: CPAP at night and with naps (5) Morbid obesity with BMI of 70 and over, adult: Code(s): E66.01 - Morbid (severe) obesity due to excess calories; Z68.45 - Body mass index [BMI] 70 or greater, adult Status: Chronic Assessment and Plan: Dietary and lifestyle modifications. (6) Lymphedema: Code(s): I89.0 - Lymphedema, not elsewhere classified Status: Chronic Assessment and Plan: Chronic lipedema/lymphedema and has seen specialist in the past. Continues to have recurrent cellulitis infection and requiring hospitalization. May need to see her specialist again to see if there is anything that can be done to prevent further infections. (7) COPD (chronic obstructive pulmonary disease): Code(s): J44.9 - Chronic obstructive pulmonary disease, unspecified Status: Acute Assessment and Plan: No wheezing, not in acute exacerbation. Bronchodilators as needed (8) Nausea and vomiting: Code(s): R11.2 - Nausea with vomiting, unspecified Status: Acute Assessment and Plan: Likely secondary to acute infection. Nausea and vomiting has resolved. She is tolerating her diet. Antiemetics available as needed. Subjective Date/time seen: 04/21/21 12:57 Interval history: Date of service: 04/21/2021 Erin Mccann is a 45-year-old female with a history of COPD, Ellen-Danlos syndrome, CAMILLE on CPAP, lymphedema, lipedema, and recurrent cellulitis infections who is seen in follow-up for cellulitis and suspected COVID-19. She does not feel well today. She reports feeling fatigued, achy, and worn down. She continues to have pain in her left thigh/buttock region that she rates as 6/10. She states if air blows over her leg or even if the sheets touch her leg, her pain increases. With palpation, her pain is 10/10. She feels the redness may be slightly improving, though it is difficult for her to
[2021-04-21 15:23] LABS: SARS-CoV-2 RNA PCR Negative
[2021-04-22 02:18] VITALS: PULSE 82; O2SAT 95
[2021-04-22] MEDS: ACETAMINOPHEN 500 MG TABLET 1000 MG PO ×2 (06:18→21:23)
[2021-04-22 06:56] VITALS: BP 155/77; PULSE 75; RESP 18; TEMP 36.2; O2SAT 95
[2021-04-22 06:56] LABS: Hematocrit 34.1 % (37.0-47.0); Hemoglobin 10.6 g/dL (12.0-15.0); Mean Corpuscular HGB Conc 31.1 g/dl (32-36); Mean Corpuscular Hemoglobin 27.1 pg (26-34); Mean Corpuscular Volume 87.2 fl (80-100); Mean Platelet Volume 10.4 fl (7.4-10.4); Platelet Count Result 270 k/mm3 (150-375); Red Blood Count 3.91 M/mm3 (4.2-5.4); Red Cell Distribution Width 13.6 % (11.5-14.5); White Blood Count 7.7 K/mm3 (4.5-10.0)
[2021-04-22 08:22] LABS: Alanine Aminotransferase 15 U/L (4-35); Albumin Level 3.7 g/dL (3.5-5.1); Alkaline Phosphatase 73 U/L (38-126); Anion Gap 7 mmol/L (8-16); Aspartate Amino Transferase 24 U/L (14-36); Bilirubin,Total 0.3 mg/dL (0.2-1.3); Blood Urea Nitrogen 10 mg/dL (7-17); CRP 8.2 mg/dL (<1.0); Calcium 8.8 mg/dL (8.4-10.2); Carbon Dioxide 28 mmol/L (22-30); Chloride 102 mmol/L (98-107); Estimated CRCL calculation 193 ml/min; Estimated Glomerular Filt Rate > 60; Glucose 141 mg/dL (65-110); Potassium 3.9 mmol/L (3.4-5.0); Sodium 137 mmol/L (137-145)
[2021-04-22] MEDS: PANTOPRAZOLE SODIUM IV 40 MG VIAL IV PUSH (08:59)
[2021-04-22] MEDS: ENOXAPARIN 40 MG/0.4 ML SYRINGE SUB-Q (08:59)
[2021-04-22 14:19] VITALS: BP 143/81; PULSE 79; RESP 16; TEMP 36.2; O2SAT 96
--- NOTE | 2021-04-22 15:10 | PM.IMPN ---
Progress Note: A&P Assessment and Plan (1) Cellulitis of left thigh: Code(s): L03.116 - Cellulitis of left lower limb Status: Acute Assessment and Plan: Patient presented with worsening redness, pain, warmth to left thigh with associated nausea, vomiting, fevers and chills. She has had frequent cellulitis infections at the left hip in the past year. Continue IV Ancef Overall cellulitis appears to be slowly improving Blood cultures pending, negative to date Leukocytosis has resolved Continue with daily monitoring of the site for improvement. Hopeful transition to PO antibiotics and discharge home in 1-2 days if continued improvement (2) Sepsis: Qualifiers: Sepsis acute organ dysfunction status: without acute organ dysfunction Sepsis type: sepsis due to unspecified organism Qualified Code(s): A41.9 - Sepsis, unspecified organism Code(s): A41.9 - Sepsis, unspecified organism Status: Acute Assessment and Plan: Met criteria for sepsis on presentation with tachycardia, hypotension, leukocytosis. Source of infection is cellulitis. Please see above for further details. Blood cultures pending, negative to date. (3) Obstructive sleep apnea on CPAP: Code(s): G47.33 - Obstructive sleep apnea (adult) (pediatric); Z99.89 - Dependence on other enabling machines and devices Status: Chronic Assessment and Plan: CPAP at night and with naps (4) Morbid obesity with BMI of 70 and over, adult: Code(s): E66.01 - Morbid (severe) obesity due to excess calories; Z68.45 - Body mass index [BMI] 70 or greater, adult Status: Chronic Assessment and Plan: Dietary and lifestyle modifications. (5) Lymphedema: Code(s): I89.0 - Lymphedema, not elsewhere classified Status: Chronic Assessment and Plan: Chronic lipedema/lymphedema and has seen specialist in the past. Continues to have recurrent cellulitis infection requiring hospitalization. Would benefit from follow-up evaluation with her specialist again to see if there is anything that can be done to prevent further infections. (6) COPD (chronic obstructive pulmonary disease): Code(s): J44.9 - Chronic obstructive pulmonary disease, unspecified Status: Acute Assessment and Plan: No wheezing, not in acute exacerbation. Bronchodilators as needed (7) Nausea and vomiting: Code(s): R11.2 - Nausea with vomiting, unspecified Status: Acute Assessment and Plan: Likely secondary to acute infection. Nausea and vomiting has resolved. She is tolerating her diet. Antiemetics available as needed. (8) COVID-19 ruled out by laboratory testing: Code(s): Z20.822 - Contact with and (suspected) exposure to COVID-19 Status: Acute Assessment and Plan: Patient's son, with whom she had close contact, became positive for COVID-19 on 04/19/2021. Isolation precautions implemented and patient was tested for COVID-19, which was negative. She has maintained adequate O2 sats on room air. CXR reviewed with no acute cardiopulmonary abnormalities. She did completed Pfizer vaccination and booster Additional Plan Given ongoing complaints of fatigue and aching, will swab for influenza. She did receive influenza vaccination. Subjective Date/time seen: 04/22/21 15:10 Interval history: Date of service: 04/22/2021 Erin Mccann is a 45-year-old female with a history of COPD, Ellen-Danlos syndrome, CAMILLE on CPAP, lymphedema, lipedema, and recurrent cellulitis infections who is seen in follow-up for cellulitis. Still not feeling well today. She complains of sinus congestion and headache. Also complains of persistent generalized aching and fatigue. She is still having quite a bit of pain in her left thigh and buttock. It is worse because she has been sitting more. Denies fevers or chills. Still having general body aches. Appetite is
[2021-04-22 16:21] LABS: Influenza Control Positive
[2021-04-22] MEDS: FLUTICASONE PROPIONATE 0.05% NA SPR 16 GM BTL (*BKC) 1 SPRAY NASAL (21:23)
[2021-04-22 22:00] VITALS: BP 147/80; PULSE 88; RESP 18; TEMP 36.6; O2SAT 97
[2021-04-22 23:15] VITALS: PULSE 93; RESP 19; O2SAT 96
[2021-04-22 23:16] VITALS: O2SAT 96
[2021-04-23 05:48] VITALS: PULSE 77; RESP 24; O2SAT 97
[2021-04-23 06:00] VITALS: BP 132/94; PULSE 78; RESP 20; TEMP 36.4; O2SAT 94
[2021-04-23 06:24] LABS: Anion Gap 5 mmol/L (8-16); Blood Urea Nitrogen 14 mg/dL (7-17); Carbon Dioxide 29 mmol/L (22-30); Chloride 101 mmol/L (98-107); Estimated CRCL calculation 167 ml/min; Estimated Glomerular Filt Rate > 60; Glucose 145 mg/dL (65-110); Potassium 3.8 mmol/L (3.4-5.0); Sodium 135 mmol/L (137-145)
[2021-04-23 06:38] LABS: Hematocrit 33.9 % (37.0-47.0); Hemoglobin 10.8 g/dL (12.0-15.0); Mean Corpuscular HGB Conc 31.9 g/dl (32-36); Mean Corpuscular Volume 87.8 fl (80-100); Mean Platelet Volume 10.1 fl (7.4-10.4); Platelet Count Result 270 k/mm3 (150-375); Red Blood Count 3.86 M/mm3 (4.2-5.4); Red Cell Distribution Width 13.8 % (11.5-14.5); White Blood Count 7.4 K/mm3 (4.5-10.0)
[2021-04-23] MEDS: FLUTICASONE PROPIONATE 0.05% NA SPR 16 GM BTL (*BKC) 1 SPRAY NASAL ×2 (08:31→20:41)
[2021-04-23] MEDS: ENOXAPARIN 40 MG/0.4 ML SYRINGE SUB-Q (08:31)
[2021-04-23] MEDS: PANTOPRAZOLE SODIUM IV 40 MG VIAL IV PUSH (08:31)
[2021-04-23 08:35] LABS: Hemoglobin A1C 5.6 % (<5.7)
[2021-04-23] MEDS: ACETAMINOPHEN 500 MG TABLET 1000 MG PO (13:00)
--- NOTE | 2021-04-23 14:07 | PM.IMPN ---
Progress Note: A&P Assessment and Plan (1) Cellulitis of left thigh: Code(s): L03.116 - Cellulitis of left lower limb Status: Acute Assessment and Plan: Patient presented with worsening redness, pain, warmth to left lateral thigh and buttocks with associated nausea, vomiting, fevers and chills. She has had frequent cellulitis infections at the left hip in the past year. Continue IV Ancef. Will plan to transition to PO keflex for tomorrow Overall with improvement in cellulitis Blood cultures pending, negative to date Leukocytosis has resolved. CRP with downward trend Continue with daily monitoring of the site for improvement. Hopeful discharge home in 1-2 days if continued improvement (2) Sepsis: Qualifiers: Sepsis acute organ dysfunction status: without acute organ dysfunction Sepsis type: sepsis due to unspecified organism Qualified Code(s): A41.9 - Sepsis, unspecified organism Code(s): A41.9 - Sepsis, unspecified organism Status: Acute Assessment and Plan: Met criteria for sepsis on presentation with tachycardia, hypotension, leukocytosis. Source of infection is cellulitis. Please see above for further details. Blood cultures pending, negative to date. (3) Obstructive sleep apnea on CPAP: Code(s): G47.33 - Obstructive sleep apnea (adult) (pediatric); Z99.89 - Dependence on other enabling machines and devices Status: Chronic Assessment and Plan: CPAP at night and with naps (4) Morbid obesity with BMI of 70 and over, adult: Code(s): E66.01 - Morbid (severe) obesity due to excess calories; Z68.45 - Body mass index [BMI] 70 or greater, adult Status: Chronic Assessment and Plan: Dietary and lifestyle modifications. (5) Lymphedema: Code(s): I89.0 - Lymphedema, not elsewhere classified Status: Chronic Assessment and Plan: Chronic lipedema/lymphedema and has seen specialist in the past. Continues to have recurrent cellulitis infection requiring hospitalization. Would benefit from follow-up evaluation with her specialist again to see if there is anything that can be done to prevent further infections. (6) COPD (chronic obstructive pulmonary disease): Code(s): J44.9 - Chronic obstructive pulmonary disease, unspecified Status: Acute Assessment and Plan: No wheezing, not in acute exacerbation. Bronchodilators as needed (7) Nausea and vomiting: Code(s): R11.2 - Nausea with vomiting, unspecified Status: Acute Assessment and Plan: Likely secondary to acute infection. Nausea and vomiting has resolved. She is tolerating her diet. Antiemetics available as needed. (8) COVID-19 ruled out by laboratory testing: Code(s): Z20.822 - Contact with and (suspected) exposure to COVID-19 Status: Acute Assessment and Plan: Patient's son, with whom she had close contact, became positive for COVID-19 on 04/19/2021. Isolation precautions implemented and patient was tested for COVID-19, which was negative. She has maintained adequate O2 sats on room air. CXR reviewed with no acute cardiopulmonary abnormalities. She did completed Pfizer vaccination and booster Subjective Date/time seen: 04/23/21 14:07 Interval history: Date of service: 04/23/2021 Erin Mccann is a 45-year-old female with a history of COPD, Ellen-Danlos syndrome, CAMILLE on CPAP, lymphedema, lipedema, and recurrent cellulitis infections who is seen in follow-up for cellulitis. Starting to feel better today. She does note onset of week being of her left lateral thigh and buttocks. She has some blistering that has opened up and is weeping fluid persistently. She states this is typical for when she has had recurrent cellulitis infections in the past. She endorses pain in the leg that she rates as 7/10 at this time. Still having fatigue and notes difficulty concentrating. No abdomin
[2021-04-23 15:08] VITALS: BP 153/83; PULSE 93; RESP 16; TEMP 36.5; O2SAT 99
[2021-04-23 20:00] VITALS: PULSE 87; RESP 20; O2SAT 94
[2021-04-23] MEDS: guaiFENesin 12 HR 600 MG TABCR PO (20:40)
[2021-04-23 21:28] VITALS: BP 144/84; PULSE 84; RESP 22; TEMP 36.2; O2SAT 98
[2021-04-23 22:54] VITALS: PULSE 87; RESP 20; O2SAT 94
[2021-04-24 02:01] VITALS: PULSE 88; RESP 20; O2SAT 94
[2021-04-24] MEDS: CEPHALEXIN 500 MG CAPSULE PO (05:38)
[2021-04-24 06:00] VITALS: BP 151/94; PULSE 79; RESP 20; TEMP 36.6; O2SAT 97
[2021-04-24 06:47] LABS: Hematocrit 33.2 % (37.0-47.0); Hemoglobin 10.5 g/dL (12.0-15.0); Mean Corpuscular HGB Conc 31.6 g/dl (32-36); Mean Corpuscular Hemoglobin 27.6 pg (26-34); Mean Corpuscular Volume 87.4 fl (80-100); Mean Platelet Volume 9.9 fl (7.4-10.4); Platelet Count Result 298 k/mm3 (150-375); Red Cell Distribution Width 13.6 % (11.5-14.5); White Blood Count 7.2 K/mm3 (4.5-10.0)
[2021-04-24 06:59] LABS: Anion Gap 7 mmol/L (8-16); Blood Urea Nitrogen 13 mg/dL (7-17); CRP 4.1 mg/dL (<1.0); Calcium 8.8 mg/dL (8.4-10.2); Carbon Dioxide 30 mmol/L (22-30); Chloride 102 mmol/L (98-107); Estimated CRCL calculation 167 ml/min; Estimated Glomerular Filt Rate > 60; Glucose 136 mg/dL (65-110); Sodium 139 mmol/L (137-145)
[2021-04-24] MEDS: guaiFENesin 12 HR 600 MG TABCR PO (09:15)
[2021-04-24] MEDS: PANTOPRAZOLE SODIUM IV 40 MG VIAL IV PUSH (09:15)
[2021-04-24] MEDS: ENOXAPARIN 40 MG/0.4 ML SYRINGE SUB-Q (09:15)
[2021-04-24] MEDS: FLUTICASONE PROPIONATE 0.05% NA SPR 16 GM BTL (*BKC) 1 SPRAY NASAL (09:15)
--- NOTE | 2021-04-24 15:50 | PM.DS ---
DS: Admitting Diagnosis Discharge Date 04/24/21 Admitting Diagnosis Cellulitis of left thigh DS: Discharge Diagnosis Discharge Diagnosis (1) Cellulitis of left thigh: Code(s): L03.116 - Cellulitis of left lower limb Status: Acute Assessment and Plan: Patient presented with worsening redness, pain, warmth to left lateral thigh and buttocks with associated nausea, vomiting, fevers and chills. She has had frequent cellulitis infections the left lateral thigh/hip in the past year. She was treated with IV Ancef with overall improvement in cellulitis. Blood cultures negative. Leukocytosis resolved and CRP with downward trend. She was transition to p.o. Keflex which she will continue for 7 days. Instructed to monitor the area closely each day for any changes. She will benefit from follow up with a oil and gas principal given her recurrent infections. (2) Sepsis: Qualifiers: Sepsis acute organ dysfunction status: without acute organ dysfunction Sepsis type: sepsis due to unspecified organism Qualified Code(s): A41.9 - Sepsis, unspecified organism Code(s): A41.9 - Sepsis, unspecified organism Status: Acute Assessment and Plan: Met criteria for sepsis on presentation with tachycardia, hypotension, leukocytosis. Source of infection is cellulitis. Please see above for further details. Blood cultures negative (3) Obstructive sleep apnea on CPAP: Code(s): G47.33 - Obstructive sleep apnea (adult) (pediatric); Z99.89 - Dependence on other enabling machines and devices Status: Chronic Assessment and Plan: CPAP at night and with naps (4) Morbid obesity with BMI of 70 and over, adult: Code(s): E66.01 - Morbid (severe) obesity due to excess calories; Z68.45 - Body mass index [BMI] 70 or greater, adult Status: Chronic Assessment and Plan: Dietary and lifestyle modifications. (5) Lymphedema: Code(s): I89.0 - Lymphedema, not elsewhere classified Status: Chronic Assessment and Plan: Chronic lipedema/lymphedema and has seen specialist in the past. Continues to have recurrent cellulitis infection requiring hospitalization. Would benefit from follow-up evaluation with her lipedema specialist again to see if there is anything that can be done to prevent subsequent infections. (6) COPD (chronic obstructive pulmonary disease): Code(s): J44.9 - Chronic obstructive pulmonary disease, unspecified Status: Acute Assessment and Plan: No wheezing, not in acute exacerbation. Albuterol as needed (7) Nausea and vomiting: Code(s): R11.2 - Nausea with vomiting, unspecified Status: Acute Assessment and Plan: Likely secondary to acute infection. Nausea and vomiting resolved. She was able to tolerate her diet. (8) COVID-19 ruled out by laboratory testing: Code(s): Z20.822 - Contact with and (suspected) exposure to COVID-19 Status: Acute Assessment and Plan: Patient's son, with whom she had close contact, became positive for COVID-19 on 04/19/2021. Isolation precautions implemented and patient was tested for COVID-19, which was negative. She maintained adequate O2 sats on room air. CXR reviewed with no acute cardiopulmonary abnormalities. She did completed Pfizer vaccination and booster. Isolation precautions discontinued upon negative COVID-19 test. DS: Summary Hospital Course Hospital Course: Date of admission: 04/18/2021 Date of discharge: 04/24/2021 Erin Mccann is a 45-year-old female with a history of COPD, Ellen-Danlos syndrome, CAMILLE on CPAP, lymphedema, lipedema, and recurrent cellulitis infections who presented to the emergency department on 04/18/2021 with complaints of nausea and vomiting as well as increased redness to her left thigh. On presentation to the emergency department, she was mildly tachycardic and tachypneic with additional vital signs sta
== END 2021-04-24 11:30 | disposition home or self-care (01) | DRG 720 ==
LOC: ANHED 20:27 → ANH2MED 04-19 07:10 → ANH3MEDSUR 04-20 14:41
PROVIDERS: Physician Assistant; Admitting Provider Internal Medicine; Emergency Provider Emergency Medicine; PCP Family Medicine; Visit Provider Family Medicine
DX: A41.9 Sepsis, unspecified organism (principal); L03.116 Cellulitis of left lower limb; Z20.822 Contact with and (suspected) exposure to COVID-19; E66.01 Morbid (severe) obesity due to excess calories; Z68.45 Body mass index [BMI] 70 or greater, adult; I89.0 Lymphedema, not elsewhere classified; G47.33 Obstructive sleep apnea (adult) (pediatric); J44.9 Chronic obstructive pulmonary disease, unspecified; Q79.60 Ehlers-Danlos syndrome, unspecified; Z87.891 Personal history of nicotine dependence; Z99.89 Dependence on other enabling machines and devices
CPT/HCPCS: 36415; 71045; 80048; 80053; 82728; 83036; 83605; 83615; 83735; 85025; 85027; 85610; 85730; 86140; 87040; 87804; 93005; 96365; 96366; 96372; 96375; 96376; 99285; A9270; C9113; C9803; G0378; J0131; J0690; J1650; J1885; J2405; J7030; U0003; U0005

== ENCOUNTER 2021-05-17 14:31 | Inpatient (IN) | payer BC, SELFPAY ==
--- NOTE | ~2021-05-17 | XR_ITS ---
EXAMINATION: XR chest 1V portable DATE: 05/17/2021 22:18 INDICATION: Fever, nausea and chills TECHNIQUE: frontal view of the chest was obtained. COMPARISON: Chest radiograph dated 04/21/2021 FINDINGS: There appear to be subtle opacities in the right mid and left lower lung zones which raises some susp icion for pneumonia. No pleural effusion or pneumothorax. The cardiomediastinal silhouette is normal. IMPRESSION: 1. Subtle opacities in the right mid and left lower lung zones which could represent an early pneumon ia however specificity is decreased by body habitus and portable technique. Reviewed, dictated and finalized at location [facility]. [employer] IMPRESSION: 1. Subtle opacities in the right mid and left lower lung zones which could repr esent an early pneumonia however specificity is decreased by body habitus and p ortable technique.
[2021-05-17 14:40] VITALS: BP 130/97; PULSE 109; RESP 20; TEMP 37.1; O2SAT 100
[2021-05-17 15:51] VITALS: BP 152/98; PULSE 127; TEMP 38.1; O2SAT 96
[2021-05-17 18:57] VITALS: BP 149/88; PULSE 126; RESP 16; TEMP 37.7; O2SAT 95
--- NOTE | 2021-05-17 19:23 | ECG_ITS ---
Measurements Intervals [place] Rate: 114 P: 23 KS: 192 QRS: -25 QRSD: 97 T: 35 QT: 310 QTc: 428 Interpretive Statements SINUS TACHYCARDIA INCOMPLETE RIGHT BUNDLE BRANCH BLOCK BORDERLINE R WAVE PROGRESSION, ANTERIOR LEADS INFERIOR INFARCT, AGE INDETERMINATE BORDERLINE ST-T WAVE ABNORMALITY- HIGH LATERAL LEADS BASELINE ARTIFACT- I, II, III, AVR, AVL, AVF, V1 ABNORMAL ECG Electronically Signed On 05-17-2021 20:04:04 [employer] by Vargas Mo D.O.
[2021-05-17 19:34] VITALS: BP 139/82; PULSE 123; RESP 30; TEMP 38.4; O2SAT 95
--- NOTE | 2021-05-17 19:46 | ED.GENADULT ---
HPI - General Adult General Chief complaint: Extremity Problem,Nontraumatic Stated complaint: Cellulitis left leg Time Seen by Provider: 05/17/21 19:23 Source: patient and RN notes reviewed History of Present Illness HPI narrative: Patient is 45 y/o female complaining of left thigh and back pain starting a few hours ago. She describes her pain as burning and rates it as 8/10. There is no alleviating or exacerbating factor. She also has fever, chills and vomiting. Related Data Home Medications Medication Instructions Recorded Confirmed albuterol sulfate See Rx Instructions .ROUTE .COMPLEX 04/19/21 05/11/21 Allergies Allergy/AdvReac Type Severity Reaction Status Date / Time capsaicin Allergy Severe Difficulty Verified 05/17/21 19:53 Breathing; swelling adhesive Allergy Mild unknown Verified 05/17/21 19:53 prochlorperazine Allergy Mild unknown Verified 05/17/21 19:53 vancomycin AdvReac Hives Verified 05/17/21 19:53 Review of Systems Constitutional: Constitutional: Denies chills, Reports fever(s), Denies headache(s) and Denies weakness Eyes: Eyes: Denies blurry vision ENT: Denies headache(s) and Denies neck pain Cardiovascular: Cardiovascular: Denies chest pain and Denies dyspnea Respiratory: Respiratory: Denies cough and Denies dyspnea Gastrointestinal: Gastrointestinal: Denies abdominal pain, Denies diarrhea, Reports nausea and Reports vomiting Genitourinary: Genitourinary: Denies hematuria and Denies dysuria Musculoskeletal: Musculoskeletal: Denies back pain and Denies neck pain Integumentary/Breasts: Skin/Breast: Reports erythema (left thigh and back) Neurologic: Denies headache(s) and Denies weakness PMF Past Medical History Medical History ADD (attention deficit disorder) Chronic obstructive pulmonary disease PFTs 2010: 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 she with mild hypercarbia Ellen-Danlos syndrome Hyperglycemia with hemoglobin A1c of 5.2% May 2020 Lipedema Lipedema Lymphedema Morbid obesity with BMI of 70 and over, adult Obstructive sleep apnea on CPAP polysomnogram 2016 recommend CPAP of 20 Surgical History Surgical History History of tonsillectomy Family History Family History Father Hypertension Family history of elevated blood lipids Family history of cardiovascular disease Cerebrovascular accident Malignant neoplasm of prostate Sibling Hypertension Family history of coronary artery disease Diabetes mellitus Family history of elevated blood lipids Family history of cardiovascular disease Mother Hypertension Family history of elevated blood lipids Leukemia Social History Social History Social History: The patient quit smoking on 01/17/2020. The patient is now disabled. She used to work for [employer]. Surrogate decision maker: Daria Mccann, . Code status: Full code. Smoking packs per day: 2 Smoking cigarettes per day: 40.0 Years smoked: 28 Smoking pack-years: 56.00 Tobacco type: cigarettes Second hand tobacco smoke exposure: No Smoking end date: 01/17/20 Alcohol intake: never Alcohol use details: rare Substance use: never Substance use type: does not use Additional living arrangements comments: Resides with her spouse and their 10-year-old twins (1 girl and 1 that is transgender) in [place]. 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 Gender identity (if verbalized by the patient): Female Sexual Orientation (if Verbalized by the Patient): Lesbian, Mcgarry, or Homosexual Spiritual care concerns: No Agree to blood products: Yes Exam Const: General: no
[2021-05-17 19:50] LABS: Basophils Absolute Auto 0.1 K/mm3 (0.0-0.1); Basophils Percent Auto 0.5 % (0.2-1.2); Eosinophils Percent Auto 0.1 % (0-4.4); Hematocrit 41.8 % (37.0-47.0); Hemoglobin 13.3 g/dL (12.0-15.0); Immature Granulocyte Absolute 0.16 K/mm3 (0.00-0.031); Immature Granulocyte Percent A 0.7 % (0-0.5); Lymphocytes Absolute Auto 1.03 K/mm3 (0.9-3.2); Lymphocytes Percent Auto 4.7 % (18.3-44.2); Mean Corpuscular HGB Conc 31.8 g/dl (32-36); Mean Corpuscular Hemoglobin 27.6 pg (26-34); Mean Corpuscular Volume 86.7 fl (80-100); Mean Platelet Volume 10.1 fl (7.4-10.4); Monocytes Absolute Auto 1.1 K/mm3 (0.1-0.6); Monocytes Percent Auto 5.1 % (2.6-8.5); Neutrophils Absolute Auto 19.7 K/mm3 (1.3-6.7); Neutrophils Percent Auto 88.9 % (45.5-73.1); Platelet Count Result 293 k/mm3 (150-375); Red Blood Count 4.82 M/mm3 (4.2-5.4); Red Cell Distribution Width 14.1 % (11.5-14.5); White Blood Count 22.1 K/mm3 (4.5-10.0)
[2021-05-17] MEDS: SODIUM CHLORIDE 0.9% IV 1,000 ML 999 ML IV CONT (19:53)
[2021-05-17 19:54] LABS: Lactic Acid Reflex 3.1 mmol/L (0.7-2.1)
[2021-05-17] MEDS: ONDANSETRON INJ 4 MG/2 ML VIAL IV PUSH ×2 (19:54→23:05)
[2021-05-17 20:24] VITALS: TEMP 37.1
[2021-05-17 21:12] LABS: Add Urine Microscopic? YES; Appearance Urine Clear (Clear); Bacteria Urine Trace /hpf; Bilirubin Urine Negative (Negative); Blood Urine 2+ (Negative); Color Urine Yellow (Yellow); Glucose Urine UA Negative (Negative); Ketones Urine Negative (Negative); Leukocyte Esterase Ur Negative LEU/UL (Negative); Mucus Urine Rare /lpf; Nitrate Urine Negative (Negative); Protein Urine 1+ mg/dL (Negative); RBC Urine 21-50 /hpf (0-2); Specific Grav Ur 1.025 (1.001-1.035); Squamous Epithelial Cell Urine Occasional /hpf (Few); Urobilinogen Urine Negative mg/dL (<2.0); WBC Urine 0-3 /hpf
[2021-05-17 21:26] LABS: Alanine Aminotransferase 29 U/L (4-35); Albumin Level 4.5 g/dL (3.5-5.1); Alkaline Phosphatase 81 U/L (38-126); Anion Gap 8 mmol/L (8-16); Aspartate Amino Transferase 37 U/L (14-36); Bilirubin,Total 0.8 mg/dL (0.2-1.3); Blood Urea Nitrogen 15 mg/dL (7-17); Calcium 8.9 mg/dL (8.4-10.2); Carbon Dioxide 26 mmol/L (22-30); Chloride 98 mmol/L (98-107); Estimated CRCL calculation 133 ml/min; Estimated Glomerular Filt Rate > 60; Glucose 161 mg/dL (65-110); Potassium 4.1 mmol/L (3.4-5.0); Sodium 132 mmol/L (137-145)
[2021-05-17 22:41] LABS: Reflex Lactic Acid Yes or No Add Lactic
[2021-05-17] MEDS: PIPERACILLIN/TAZOBACTAM SOD 4.5 GM in SODIUM CHLORIDE 0.9% IV 100 ML 200 ML IVPB (22:41)
[2021-05-17 23:30] VITALS: BP 135/86; PULSE 111; RESP 24; O2SAT 92
--- NOTE | 2021-05-17 23:41 | PM.IMHP ---
H&P: HPI History of Present Illness Date/Time: 05/17/21 23:41 Chief Complaint: Tenderness and redness Narrative: This is a 45-year-old female with past medical history significant for recurrent cellulitis, morbid obesity. Patient presented to the emergency room after she notices tenderness redness on her right thigh with chills nausea and vomiting that started earlier in the morning prior to this patient stated she has been in her usual state of health. Denies any abdominal pain, diarrhea ,cough, sputum production, shortness of breath, dizziness, lightheadedness. Preliminary workup was significant for a white count of 22,000, a sodium of 132, urinalysis was significant for hematuria he a rapid COVID test was negative. Patient has been admitted for further evaluation management and treatment. Review of Systems Review of Systems: Right thigh tenderness, redness ,nausea ,vomiting ,chills, rigors. Constitutional: Constitutional: Reports chills, Reports fever(s), Denies night sweats and Reports poor appetite Eyes: Eyes: Denies change in vision ENT: Denies dysphagia, Denies dizziness, Denies nasal discharge, Denies nasal obstruction and Denies odynophagia Cardiovascular: Cardiovascular: Denies lightheadedness, Denies radiating jaw, neck or arm pain, Denies palpitations, Denies dyspnea on exertion and Denies orthopnea Respiratory: Respiratory: Denies chest congestion, Denies cough, Denies excessive phlegm production and Denies dyspnea Gastrointestinal: Gastrointestinal: Denies abdominal pain, Denies diarrhea, Reports nausea and Reports vomiting Genitourinary: Genitourinary: Denies dysuria Musculoskeletal: Musculoskeletal: Denies arthralgias and Denies joint swelling Integumentary/Breasts: Comments: Redness and tenderness on the upper thigh Neurologic: Denies focal weakness and Denies Sensory deficit (Neuro) Psychiatric: Psychiatric: Reports no additional psychiatric complaints and Reports as per HPI Endocrine: Endocrine: Denies cold intolerance, Denies fatigue, Denies heat intolerance, Denies polydipsia and Denies palpitations Hematologic/Lymphatic: Hematologic/Lymphatic: Reports no additional hematologic/lymphatic complaints and Reports as per HPI Allergic/Immunologic: Allergic/Immunologic: Reports no additional allergic/immunologic complaints and Reports as per HPI [facility] Past Medical History Medical History ADD (attention deficit disorder) Chronic obstructive pulmonary disease PFTs 2010: 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 she with mild hypercarbia Ellen-Danlos syndrome Hyperglycemia with hemoglobin A1c of 5.2% May 2020 Lipedema Lipedema Lymphedema Morbid obesity with BMI of 70 and over, adult Obstructive sleep apnea on CPAP polysomnogram 2016 recommend CPAP of 20 Surgical History Surgical History History of tonsillectomy Family History Family History Father Hypertension Family history of elevated blood lipids Family history of cardiovascular disease Cerebrovascular accident Malignant neoplasm of prostate Sibling Hypertension Family history of coronary artery disease Diabetes mellitus Family history of elevated blood lipids Family history of cardiovascular disease Mother Hypertension Family history of elevated blood lipids Leukemia Social History Social History Social History: The patient quit smoking on 01/17/2020. The patient is now disabled. She used to work for [employer]. Surrogate decision maker: Daria Mccann, . Code status: Full code. Smoking packs per day: 2 Smoking cigarettes per day: 40.0 Years smoked: 28 Smoking pack-years: 56.00 Smoking status: Former smoker Tobacco type: cigarettes Sec
[2021-05-18] VITALS (8 sets, daily range): BP systolic 138–147; BP diastolic 72–93; PULSE 81–103; RESP 16–24; TEMP 36.3–37.1; O2SAT 91–98; BMI 82.5
[2021-05-18 00:01] LABS: Lactic Acid 2.1 mmol/L (0.7-2.1)
[2021-05-18 00:09] LABS: EDCOVIDSCREEN Negative (Negative)
[2021-05-18 00:11] LABS: NT Pro B Type Natriuretic Pept 121 pg/mL (5-100)
--- NOTE | 2021-05-18 00:27 | PC.NURSE ---
While giving report to 3rd Med/Surg the RN informed me that she did not want me to send the bags of LR that were previously spiked in the ED. I am deciding to send the bags of fluid anyway because they have already been pulled from the [facility]. price analyst agrees.
--- NOTE | 2021-05-18 00:53 | ADMGEN ---
This patient, Erin Mccann, was admitted to [facility] Surg Room 309-01. Patient/family oriented to hospital policies and general routines including ID bracelet, bed and alarms, visiting hours, pain management, procedures, bathroom and other care routines, personal items, smoking policy, room service/diet, and visiting hours. Information on how to activate the Rapid Response Team has been discussed. Patient/Family are encouraged to report perceived risks to care and to ask questions if they do not understand what they are told or what they should do.
[2021-05-18] MEDS: SODIUM CHLORIDE 0.9% IV 1,000 ML 100 ML IV CONT (02:45)
[2021-05-18] MEDS: DAPTOmycin 500 MG in SODIUM CHLORIDE 0.9% IV 50 ML 100 MG IVPB (02:46)
[2021-05-18 08:34] LABS: Basophils Absolute Auto 0.1 K/mm3 (0.0-0.1); Basophils Percent Auto 0.4 % (0.2-1.2); Eosinophils Percent Auto 0.1 % (0-4.4); Hematocrit 35.3 % (37.0-47.0); Hemoglobin 11.1 g/dL (12.0-15.0); Immature Granulocyte Absolute 0.09 K/mm3 (0.00-0.031); Immature Granulocyte Percent A 0.7 % (0-0.5); Lymphocytes Absolute Auto 1.16 K/mm3 (0.9-3.2); Lymphocytes Percent Auto 8.4 % (18.3-44.2); Mean Corpuscular HGB Conc 31.4 g/dl (32-36); Mean Corpuscular Hemoglobin 27.5 pg (26-34); Mean Corpuscular Volume 87.4 fl (80-100); Mean Platelet Volume 9.7 fl (7.4-10.4); Monocytes Absolute Auto 0.8 K/mm3 (0.1-0.6); Monocytes Percent Auto 5.9 % (2.6-8.5); Neutrophils Absolute Auto 11.7 K/mm3 (1.3-6.7); Neutrophils Percent Auto 84.5 % (45.5-73.1); Platelet Count Result 240 k/mm3 (150-375); Red Blood Count 4.04 M/mm3 (4.2-5.4); Red Cell Distribution Width 14.3 % (11.5-14.5); White Blood Count 13.8 K/mm3 (4.5-10.0)
[2021-05-18 09:09] LABS: Anion Gap 10 mmol/L (8-16); Blood Urea Nitrogen 13 mg/dL (7-17); Calcium 8.3 mg/dL (8.4-10.2); Carbon Dioxide 25 mmol/L (22-30); Chloride 101 mmol/L (98-107); Estimated CRCL calculation 148 ml/min; Estimated Glomerular Filt Rate > 60; Glucose 152 mg/dL (65-110); Potassium 3.7 mmol/L (3.4-5.0); Sodium 136 mmol/L (137-145)
--- NOTE | 2021-05-18 10:09 | PM.IMPN ---
Progress Note: A&P Assessment and Plan (1) Cellulitis: Qualifiers: Site of cellulitis: buttock Qualified Code(s): L03.317 - Cellulitis of buttock Code(s): L03.90 - Cellulitis, unspecified Status: Acute Assessment and Plan: Recurrent cellulitis of left thigh. This is her 4th admission this year. She describes rapid onset of redness, fever, and chills. Received daptomycin and Zosyn in the ED Will transition to IV Ancef. Her previous infections have been susceptible to this Monitor the area daily Blood cultures pending Will administer 20 mg IV Lasix to help with the thickened, taut skin Supportive care. Elevate extremity She has been referred to outpatient Dermatology given her recurrent infections. Recurrence may be related to lymphedema and/or lymphatic scarring from prior infections as well as chronic edema and obesity. (2) Sepsis: Qualifiers: Sepsis acute organ dysfunction status: unspecified Sepsis type: sepsis due to unspecified organism Qualified Code(s): A41.9 - Sepsis, unspecified organism Code(s): A41.9 - Sepsis, unspecified organism Status: Acute Assessment and Plan: Secondary to cellulitis She was febrile on presentation up to 101.1?. Remains afebrile today. WBC 65118 on presentation, improved to 13,000 thousand today Tachypnea and tachycardia resolved Blood cultures pending Continue treatment of cellulitis as above (3) Nausea and vomiting: Code(s): R11.2 - Nausea with vomiting, unspecified Status: Acute Assessment and Plan: Secondary to acute infection. Resolved. Antiemetics available as needed (4) COPD (chronic obstructive pulmonary disease): Code(s): J44.9 - Chronic obstructive pulmonary disease, unspecified Status: Acute Assessment and Plan: No issues at this time. No wheezing Albuterol as needed (5) Obstructive sleep apnea on CPAP: Code(s): G47.33 - Obstructive sleep apnea (adult) (pediatric); Z99.89 - Dependence on other enabling machines and devices Status: Chronic Assessment and Plan: Continue CPAP at nighttime Subjective Date/time seen: 05/18/21 10:09 Interval history: Date of service: 05/18/2021 Erin Mccann is a 45-year-old female with a history of COPD, Ellen-Danlos syndrome, CAMILLE on CPAP, lymphedema, lip edema, and recurrent cellulitis infections who is seen in follow-up again for cellulitis of the left thigh and flank. She presented with rapid onset fever, chills, vomiting, and redness of the left thigh. She notes some mild improvemen today. She states that her pain in her leg is rated 4/10 when she is resting and increases up to 7/10 with any movement. He states that the redness spans entire thigh in up towards her left flank. She denies any streaking up the back or down the leg. She did note a small blister formation today. Denies purulence or drainage. Her nausea has resolved. She is no longer having chills. No episodes of emesis. She does endorse a mild headache. She has been able to tolerate her diet today. Denies abdominal pain. Endorses chronic loose stools. No dysuria or hematuria. No shortness breath, cough, chest pain, palpitations. Review of Systems Review of Systems: All systems reviewed & are unremarkable except as noted in HPI and below Exam Narrative: Ms. Mccann is a morbidly obese 45-year-old female who is lying supine in bed. She appears comfortable and is in NARD. Neuro: awake, alert and oriented x4, speech clear, no focal neuro deficits noted HEENMT: normocephalic, atraumatic, EOMI, sclerae anicteric, moist oral mucosa Neck: supple, no lymphadenopathy Respiratory: clear to auscultation anteriorly, nonlabored breathing Cardio: regular rate, regular rhythm with S1-S2 Abdomen: Obese, normoactive bowel sounds, soft, nontender to palpation, no rigidity or guarding Extremities: Chronic edema of martinez
[2021-05-18] MEDS: HEPARIN SODIUM 5,000 UNITS/ML VIAL 5000 UNITS SUB-Q ×2 (15:37→22:04)
[2021-05-19] VITALS: BP 150/82; PULSE 87; RESP 16; TEMP 36.3; O2SAT 96
[2021-05-19 04:00] VITALS: BP 136/75; PULSE 81; RESP 16; TEMP 36.3; O2SAT 97
[2021-05-19 05:30] VITALS: BP 136/75; PULSE 81; RESP 16; TEMP 36.3; O2SAT 97
[2021-05-19] MEDS: HEPARIN SODIUM 5,000 UNITS/ML VIAL 5000 UNITS SUB-Q ×3 (05:31→21:58)
[2021-05-19 06:40] LABS: Hematocrit 34.6 % (37.0-47.0); Hemoglobin 10.8 g/dL (12.0-15.0); Mean Corpuscular HGB Conc 31.2 g/dl (32-36); Mean Corpuscular Hemoglobin 27.1 pg (26-34); Mean Corpuscular Volume 86.9 fl (80-100); Mean Platelet Volume 10.1 fl (7.4-10.4); Platelet Count Result 227 k/mm3 (150-375); Red Blood Count 3.98 M/mm3 (4.2-5.4); Red Cell Distribution Width 14.2 % (11.5-14.5)
[2021-05-19 07:05] LABS: Anion Gap 9 mmol/L (8-16); Blood Urea Nitrogen 11 mg/dL (7-17); CRP 16.2 mg/dL (<1.0); Calcium 8.5 mg/dL (8.4-10.2); Carbon Dioxide 25 mmol/L (22-30); Chloride 101 mmol/L (98-107); Estimated CRCL calculation 168 ml/min; Estimated Glomerular Filt Rate > 60; Glucose 146 mg/dL (65-110); Potassium 3.9 mmol/L (3.4-5.0); Sodium 135 mmol/L (137-145)
--- NOTE | 2021-05-19 12:59 | PM.IMPN ---
Progress Note: A&P Assessment and Plan (1) Cellulitis: Qualifiers: Site of cellulitis: buttock Qualified Code(s): L03.317 - Cellulitis of buttock Code(s): L03.90 - Cellulitis, unspecified Status: Acute Assessment and Plan: Recurrent cellulitis of left thigh. This is her 4th admission this year. She describes rapid onset of redness, fever, and chills. Continue IV Ancef Monitor the area daily Blood cultures pending Will administer 20 mg IV Lasix one time to help with the thickened, taut skin Supportive care. Elevate extremity She has been referred to outpatient Dermatology given her recurrent infections. Recurrence may be related to lymphedema and/or lymphatic scarring from prior infections as well as chronic edema and obesity. (2) Sepsis: Qualifiers: Sepsis acute organ dysfunction status: unspecified Sepsis type: sepsis due to unspecified organism Qualified Code(s): A41.9 - Sepsis, unspecified organism Code(s): A41.9 - Sepsis, unspecified organism Status: Acute Assessment and Plan: Secondary to cellulitis She was febrile on presentation up to 101.1?. Remains afebrile today. WBC 31652 on presentation, improved to 10k today Tachypnea and tachycardia resolved Blood cultures pending, negative to date Continue treatment of cellulitis as above (3) Nausea and vomiting: Code(s): R11.2 - Nausea with vomiting, unspecified Status: Acute Assessment and Plan: Secondary to acute infection. Resolved. Antiemetics available as needed (4) COPD (chronic obstructive pulmonary disease): Code(s): J44.9 - Chronic obstructive pulmonary disease, unspecified Status: Acute Assessment and Plan: No issues at this time. No wheezing Albuterol as needed (5) Elevated fasting glucose: Code(s): R73.01 - Impaired fasting glucose Status: Acute Assessment and Plan: Fasting glucose elevated in the 140s. A1c 04/22/21 was 5.6 No need for monitoring/intervention at this time (6) Obstructive sleep apnea on CPAP: Code(s): G47.33 - Obstructive sleep apnea (adult) (pediatric); Z99.89 - Dependence on other enabling machines and devices Status: Chronic Assessment and Plan: Continue CPAP at nighttime Subjective Date/time seen: 05/19/21 12:59 Interval history: Date of service: 05/19/2021 Erin Mccann is a 45-year-old female with a history of COPD, Ellen-Danlos syndrome, CAMILLE on CPAP, lymphedema, lipedema, and recurrent cellulitis infections who is seen in follow-up again for cellulitis of the left thigh and flank. Feeling about the same today. Pain seems to be just a little bit worse. She rates her pain as 4/10 when she is resting and 6/10 with any movement. Pain also occurs when she shifts in bed or when the sheets or blankets press her leg. She has not really gotten a chance to look at it today to see if she thinks it looks any better or worse. No nausea, vomiting, fever, or chills. She has been able to get up out of bed and sit on the couch for a while. She is sleeping well using her CPAP. She denies shortness of breath, cough, chest pain. No urinary symptoms. Eating well but not a big fan of the hospital food. Review of Systems Review of Systems: All systems reviewed & are unremarkable except as noted in HPI and below Exam Narrative: Ms. Mccann is a morbidly obese 45-year-old female who is lying supine in bed. She appears comfortable and is in NARD. Neuro: awake, alert and oriented x4, speech clear, no focal neuro deficits noted HEENMT: normocephalic, atraumatic, EOMI, sclerae anicteric, moist oral mucosa Neck: supple, no lymphadenopathy Respiratory: clear to auscultation anteriorly, nonlabored breathing Cardio: regular rate, regular rhythm with S1-S2 Abdomen: Obese, normoactive bowel sounds, soft, nontender to palpation Extremities: Chronic edema of bi
[2021-05-19] MEDS: FUROSEMIDE INJ 40 MG/4 ML VIAL 20 MG IV PUSH (13:26)
[2021-05-19] MEDS: ACETAMINOPHEN 325 MG TABLET 650 MG PO (13:27)
[2021-05-19 14:00] VITALS: BP 155/88; PULSE 83; RESP 24; TEMP 36.3; O2SAT 96
[2021-05-19 22:00] VITALS: BP 149/79; PULSE 90; RESP 18; TEMP 36.6; O2SAT 100
[2021-05-20 06:00] VITALS: BP 130/72; PULSE 87; RESP 18; TEMP 36.1; O2SAT 95
[2021-05-20] MEDS: HEPARIN SODIUM 5,000 UNITS/ML VIAL 5000 UNITS SUB-Q ×3 (06:23→23:44)
[2021-05-20 06:56] LABS: Anion Gap 7 mmol/L (8-16); Blood Urea Nitrogen 10 mg/dL (7-17); Calcium 8.9 mg/dL (8.4-10.2); Carbon Dioxide 27 mmol/L (22-30); Chloride 99 mmol/L (98-107); Estimated CRCL calculation 168 ml/min; Estimated Glomerular Filt Rate > 60; Glucose 137 mg/dL (65-110); Potassium 3.9 mmol/L (3.4-5.0); Sodium 133 mmol/L (137-145)
[2021-05-20 06:57] LABS: Hematocrit 35.2 % (37.0-47.0); Hemoglobin 11.1 g/dL (12.0-15.0); Mean Corpuscular HGB Conc 31.5 g/dl (32-36); Mean Corpuscular Hemoglobin 27.1 pg (26-34); Mean Corpuscular Volume 86.1 fl (80-100); Platelet Count Result 262 k/mm3 (150-375); Red Blood Count 4.09 M/mm3 (4.2-5.4); Red Cell Distribution Width 14.3 % (11.5-14.5)
[2021-05-20 14:00] VITALS: BP 147/84; PULSE 89; RESP 20; TEMP 36.5; O2SAT 97
--- NOTE | 2021-05-20 14:15 | PM.IMPN ---
Progress Note: A&P Assessment and Plan (1) Cellulitis: Qualifiers: Site of cellulitis: buttock Qualified Code(s): L03.317 - Cellulitis of buttock Code(s): L03.90 - Cellulitis, unspecified Status: Acute Assessment and Plan: Recurrent cellulitis of left thigh. This is her 4th admission this year. She describes rapid onset of redness, fever, and chills. Continue IV Ancef Monitor the area daily Blood cultures pending; negative to date Some improvement and swelling/taut skin after 1 time dose IV Lasix. Supportive care. Elevate extremity She has been referred to outpatient Dermatology given her recurrent infections. Recurrence may be related to lymphedema and/or lymphatic scarring from prior infections as well as chronic edema and obesity. (2) Sepsis: Qualifiers: Sepsis acute organ dysfunction status: unspecified Sepsis type: sepsis due to unspecified organism Qualified Code(s): A41.9 - Sepsis, unspecified organism Code(s): A41.9 - Sepsis, unspecified organism Status: Acute Assessment and Plan: Secondary to cellulitis She was febrile on presentation up to 101.1?. Now afebrile >48 hours WBC 98490 on presentation; has normalized Tachypnea and tachycardia resolved Blood cultures pending, negative to date Continue treatment of cellulitis as above (3) Nausea and vomiting: Code(s): R11.2 - Nausea with vomiting, unspecified Status: Acute Assessment and Plan: Secondary to acute infection. Resolved. Antiemetics available as needed (4) COPD (chronic obstructive pulmonary disease): Code(s): J44.9 - Chronic obstructive pulmonary disease, unspecified Status: Acute Assessment and Plan: No issues at this time. No wheezing Albuterol as needed (5) Elevated fasting glucose: Code(s): R73.01 - Impaired fasting glucose Status: Acute Assessment and Plan: Fasting glucose elevated in the 130s. A1c 04/22/21 was 5.6 No need for monitoring/intervention at this time May be related to stress response from acute illness (6) Obstructive sleep apnea on CPAP: Code(s): G47.33 - Obstructive sleep apnea (adult) (pediatric); Z99.89 - Dependence on other enabling machines and devices Status: Chronic Assessment and Plan: Continue CPAP at nighttime Subjective Date/time seen: 05/20/21 14:15 Interval history: Date of service: 05/20/2021 Erin Mccann is a pleasant 45-year-old female with a history of COPD, Ellen-Danlos syndrome, CAMILLE on CPAP, lymphedema, lipedema, and recurrent cellulitis infections who is seen in follow-up again for cellulitis of the left thigh and flank. She feels fatigued today. Her left thigh pain is unchanged. States that she hit her leg off of the door frame and this caused quite a bit of pain. She rates her pain as 8/10 currently. No nausea or vomiting. No further fevers or chills but does endorse sweats. She has been sitting up on the couch for most of the day today. No shortness breath or cough. She reports loose stools that she describes as a ?paste. No urinary symptoms. Today she mentions that she was not sure if her cellulitis was brought on by being in the car for about 2 hours with her leg pressed against the car door, thinking that may have irritated the skin. Review of Systems Review of Systems: All systems reviewed & are unremarkable except as noted in HPI and below Exam Narrative: Ms. Mccann is a morbidly obese 45-year-old female who is lying supine in bed. She appears comfortable and is in NARD. Neuro: awake, alert and oriented x4, speech clear, no focal neuro deficits noted HEENMT: normocephalic, atraumatic, EOMI, sclerae anicteric, moist oral mucosa Neck: supple, no lymphadenopathy Respiratory: clear to auscultation anteriorly, nonlabored breathing Cardio: regular rate, regular rhythm with S1-S2 Abdomen: Obese, soft,
[2021-05-20 22:00] VITALS: BP 148/86; PULSE 98; RESP 20; TEMP 37.2; O2SAT 96
[2021-05-20 23:23] VITALS: PULSE 95; O2SAT 98
[2021-05-20] MEDS: CALCIUM CARBONATE (TUMS) 500 MG (200 MG ELEMENTAL) PO (23:47)
[2021-05-21 03:36] VITALS: PULSE 98; O2SAT 97
[2021-05-21] MEDS: HEPARIN SODIUM 5,000 UNITS/ML VIAL 5000 UNITS SUB-Q ×3 (05:35→20:01)
[2021-05-21 05:39] VITALS: BP 136/86; PULSE 87; RESP 20; TEMP 36.8; O2SAT 96
[2021-05-21 08:00] VITALS: PULSE 87; RESP 20; O2SAT 96
[2021-05-21] MEDS: ACETAMINOPHEN 325 MG TABLET 650 MG PO (10:12)
[2021-05-21] MEDS: PANTOPRAZOLE 40 MG TABLET PO (10:13)
--- NOTE | 2021-05-21 11:34 | PM.IMPN ---
Progress Note: A&P Assessment and Plan (1) Cellulitis: Qualifiers: Site of cellulitis: buttock Qualified Code(s): L03.317 - Cellulitis of buttock Code(s): L03.90 - Cellulitis, unspecified Status: Acute Assessment and Plan: Recurrent cellulitis of left thigh. This is her 4th admission this year. She described rapid onset of redness, pain, fever, and chills. Continue IV Ancef Monitor the area daily; slowly improving and now weeping serous fluid Blood cultures pending; negative to date Some improvement and swelling/taut skin after 1 time dose IV Lasix. Supportive care. Elevate extremity She has been referred to outpatient Dermatology given her recurrent infections. Recurrence may be related to lymphedema and/or lymphatic scarring from prior infections as well as chronic edema and obesity. Hopeful discharge tomorrow on oral antibiotics if continued improvement (2) Sepsis: Qualifiers: Sepsis acute organ dysfunction status: unspecified Sepsis type: sepsis due to unspecified organism Qualified Code(s): A41.9 - Sepsis, unspecified organism Code(s): A41.9 - Sepsis, unspecified organism Status: Acute Assessment and Plan: Secondary to cellulitis She was febrile on presentation up to 101.1?. Now afebrile >48 hours WBC 61887 on presentation; has normalized Tachypnea and tachycardia resolved Blood cultures pending, negative to date Continue treatment of cellulitis as above (3) Nausea and vomiting: Code(s): R11.2 - Nausea with vomiting, unspecified Status: Acute Assessment and Plan: Secondary to acute infection. Resolved. Antiemetics available as needed (4) COPD (chronic obstructive pulmonary disease): Code(s): J44.9 - Chronic obstructive pulmonary disease, unspecified Status: Acute Assessment and Plan: No issues at this time. No wheezing Albuterol as needed (5) Elevated fasting glucose: Code(s): R73.01 - Impaired fasting glucose Status: Acute Assessment and Plan: Fasting glucose elevated in the 130s. A1c 04/22/21 was 5.6 No need for monitoring/intervention at this time May be related to stress response from acute illness (6) Obstructive sleep apnea on CPAP: Code(s): G47.33 - Obstructive sleep apnea (adult) (pediatric); Z99.89 - Dependence on other enabling machines and devices Status: Chronic Assessment and Plan: Continue CPAP at nighttime Subjective Date/time seen: 05/21/21 11:34 Interval history: Date of service: 05/21/2021 Erin Mccann is a pleasant 45-year-old female with a history of COPD, Ellen-Danlos syndrome, CAMILLE on CPAP, lymphedema, lipedema, and recurrent cellulitis infections who is seen in follow-up again for cellulitis of the left thigh and flank. Still feeling quite fatigued today. She has had some fluid drained from the left side today and has noticed some yellow blisters. She still endorses pain, though notes overall it was slowly improving. At this time her pain is rated 4/10 but she does develop ?ice pick like shooting pains to the thigh that last approximately 10-20 seconds. No fevers or chills. No shortness of breath. No additional concerns. Review of Systems Review of Systems: All systems reviewed & are unremarkable except as noted in HPI and below Exam Narrative: Ms. Mccann is a morbidly obese 45-year-old female who is sitting in a chair by the bedside. She appears comfortable and is in NARD. Neuro: awake, alert and oriented x4, speech clear, no focal neuro deficits noted HEENMT: normocephalic, atraumatic, EOMI, sclerae anicteric, moist oral mucosa Neck: supple, no lymphadenopathy Respiratory: clear to auscultation bilaterally, nonlabored breathing Cardio: regular rate, regular rhythm with S1-S2 Abdomen: Obese, soft, nontender to palpation Extremities: Chronic edema of bilateral lower extremities,
[2021-05-21 13:47] VITALS: BP 127/68; PULSE 83; RESP 20; TEMP 36.1; O2SAT 97
[2021-05-21 21:50] VITALS: BP 152/92; PULSE 84; RESP 20; TEMP 36.6; O2SAT 97
[2021-05-22 05:24] VITALS: BP 146/72; PULSE 82; RESP 20; TEMP 36.6; O2SAT 98
[2021-05-22] MEDS: HEPARIN SODIUM 5,000 UNITS/ML VIAL 5000 UNITS SUB-Q (05:59)
[2021-05-22 06:15] LABS: Hemoglobin 11.3 g/dL (12.0-15.0); Mean Corpuscular HGB Conc 30.5 g/dl (32-36); Mean Corpuscular Volume 88.5 fl (80-100); Mean Platelet Volume 9.9 fl (7.4-10.4); Platelet Count Result 306 k/mm3 (150-375); Red Blood Count 4.18 M/mm3 (4.2-5.4); Red Cell Distribution Width 14.1 % (11.5-14.5); White Blood Count 9.2 K/mm3 (4.5-10.0)
[2021-05-22 06:32] LABS: CRP 4.3 mg/dL (<1.0)
--- NOTE | 2021-05-22 10:13 | PM.DS ---
DS: Admitting Diagnosis Discharge Date 05/22/2021 Admitting Diagnosis Left thigh cellulitis DS: Discharge Diagnosis Discharge Diagnosis (1) Cellulitis: Qualifiers: Site of cellulitis: buttock Qualified Code(s): L03.317 - Cellulitis of buttock Code(s): L03.90 - Cellulitis, unspecified Status: Acute Assessment and Plan: Presented following rapid onset thigh redness, pain, fever, and chills. She has recurrent cellulitis of left thigh. This is her 4th admission this year for this problem. She received IV Ancef and had clinical improvement in cellulitis. Supportive care provided. Continue to elevate the extremity. Continue p.o. Keflex for 10 days and follow-up with her primary care provider promptly. She has been referred to outpatient Dermatology given her recurrent infections. Recurrence may be related to lymphedema and/or lymphatic scarring from prior infections as well as chronic edema and obesity. (2) Sepsis: Qualifiers: Sepsis acute organ dysfunction status: unspecified Sepsis type: sepsis due to unspecified organism Qualified Code(s): A41.9 - Sepsis, unspecified organism Code(s): A41.9 - Sepsis, unspecified organism Status: Acute Assessment and Plan: Secondary to cellulitis. She was febrile on presentation up to 101.1?. Fever resolved[place] [address] on presentation, subsequently normalized. Tachypnea and tachycardia resolved. Preliminary blood cultures negative after 4 days, final cultures will be monitored. (3) Nausea and vomiting: Code(s): R11.2 - Nausea with vomiting, unspecified Status: Acute Assessment and Plan: Secondary to acute infection. Resolved. (4) COPD (chronic obstructive pulmonary disease): Code(s): J44.9 - Chronic obstructive pulmonary disease, unspecified Status: Acute Assessment and Plan: No issues during hospitalization. No wheezing. Continue Albuterol as needed (5) Elevated fasting glucose: Code(s): R73.01 - Impaired fasting glucose Status: Acute Assessment and Plan: Fasting glucose elevated in the 130s, may be related to stress response from acute illness. A1c 04/22/2021 was 5.6. No need for further monitoring/intervention at this time. Follow-up with PCP for routine monitoring. (6) Obstructive sleep apnea on CPAP: Code(s): G47.33 - Obstructive sleep apnea (adult) (pediatric); Z99.89 - Dependence on other enabling machines and devices Status: Chronic Assessment and Plan: Continue CPAP at nighttime DS: Summary Hospital Course Hospital Course: Date of admission: 05/17/2021 Date of discharge: 05/22/2021 Erin Mccann is a pleasant 45-year-old female with a history of COPD, Ellen-Danlos syndrome, CAMILLE on CPAP, lymphedema, lipedema, and recurrent cellulitis infections who presented to the emergency department on 05/17/2021 with complaints of left thigh pain onset just a few hours prior to presentation with associated fever, chills, and vomiting. On presentation to the ED, she was tachycardic with additional vital signs stable, WBC 47749, glucose 161, lactic 3.1, additional laboratory workup unremarkable. She was admitted to the hospitalist service for further evaluation and management. Please see above for further details. She had symptomatic improvement with IV antibiotics, and her hospital course was similar to her previous admissions for same, recurrent cellulitis infections. She will continue with p.o. antibiotics and will follow-up promptly with her PCP. Given her overall improvement, she was determined to no longer require inpatient care was felt to be stable for discharge. We discussed worrisome signs and symptoms for which to return and she was educated on her medications. She was discharged in hemodynamically stable condition on 05/22/2021. Status at Discharge Functional status at discharge: i
[2021-05-22] MEDS: PANTOPRAZOLE 40 MG TABLET PO (10:21)
== END 2021-05-22 11:57 | disposition home or self-care (01) | DRG 720 ==
LOC: ANHED 19:44 → ANH3MEDSUR 23:24
PROVIDERS: Admitting Provider Internal Medicine; Emergency Provider Emergency Medicine; PCP Family Medicine; Visit Provider Physician Assistant
DX: A41.9 Sepsis, unspecified organism (principal); L03.317 Cellulitis of buttock; Z20.822 Contact with and (suspected) exposure to COVID-19; R11.2 Nausea with vomiting, unspecified; G47.33 Obstructive sleep apnea (adult) (pediatric); J44.9 Chronic obstructive pulmonary disease, unspecified; R73.01 Impaired fasting glucose; E66.01 Morbid (severe) obesity due to excess calories; Z68.45 Body mass index [BMI] 70 or greater, adult; Z87.891 Personal history of nicotine dependence; Z99.89 Dependence on other enabling machines and devices; Z79.899 Other long term (current) drug therapy
CPT/HCPCS: 36415; 71045; 80048; 80053; 81001; 83605; 83880; 85025; 85027; 86140; 87040; 87426; 87804; 93005; 96361; 96365; 96375; 99285; A9270; C9803; J0131; J0690; J0878; J1644; J1940; J2405; J2543; J7030; J7120

== ENCOUNTER 2021-11-12 20:13 | Emergency (ER) | payer BC, SELFPAY ==
--- NOTE | ~2021-11-12 | XR_ITS ---
EXAM: XR knee LT 3V, XR tibia fibula LT 2V, XR ankle LT min 3V DATE: 11/12/2021 20:44 HISTORY: Knee/leg gave out. Weight 485 lbs . COMPARISON: None available. FINDINGS: Normal mineralization. No fracture or dislocation. No lytic or blastic lesion. Osteoarthri tic changes in the left knee, severe in the medial compartment. Plantar enthesopathy. No erosion or p eriosteal change. Soft tissues within normal limits. IMPRESSION: No acute osseous finding in the left knee, left tibia/fibula, or left ankle. Reviewed, dictated and finalized at location K. IMPRESSION: No acute osseous finding in the left knee, left tibia/fibula, or le ft ankle. IMPRESSION: No acute osseous finding in the left knee, left tibia/fibula, or le ft ankle.
[2021-11-12 20:16] VITALS: BP 175/86; PULSE 105; RESP 24; TEMP 36.8; O2SAT 99
--- NOTE | 2021-11-12 20:18 | ED.LOWEXIN ---
HPI - Extremity Injury (Lower) General Chief Complaint: Extremity Injury, Lower Stated Complaint: left knee injury with pain History of Present Illness HPI Narrative: 46-year-old female presents emergency room by ambulance secondary to pain to her left knee and ankle area. She was in her bathroom when she felt her left knee just gave out and heard a pop. She did not fall down on it but she was able to catch her self and maintain her balance by grabbing the edge of the bathtub. This happened just prior to presentation emergency department. She denies any history of any knee or ankle problems before. She is currently being treated for cellulitis around the left hip area. This is been something it sounds like is more chronic in nature. Patient is morbidly obese weighing 485 pounds. She got significant lymphedema. She not take anything for pain prior to coming to the emergency room. Related Data Allergies Allergy/AdvReac Type Severity Reaction Status Date / Time capsaicin Allergy Severe Difficulty Verified 11/12/21 21:02 Breathing; swelling adhesive Allergy Mild unknown Verified 11/12/21 21:02 prochlorperazine Allergy Mild unknown Verified 11/12/21 21:02 vancomycin AdvReac Hives Verified 11/12/21 21:02 Review of Systems Review of Systems: CONSTITUTIONAL: Denies fever, chills, or sweats. EYES: Denies visual changes, redness, or discharge. ENT: Denies rhinorrhea, congestion, sore throat, or otalgia. CARDIOVASCULAR: Denies chest pain, palpitations, or edema. RESPIRATORY: Denies cough or dyspnea. GASTROINTESTINAL: Denies abdominal pain, nausea, vomiting, or diarrhea. GENITOURINARY: Denies dysuria or hematuria. SKIN: Denies rash or itching. MUSCULOSKELETAL: Complaining of pain to the left knee and left ankle area. Denies any back pain. NEUROLOGIC: Denies headache, numbness, or weakness. PSYCHIATRIC: Denies anxiety or depression. [facility] Past Medical History Medical History ADD (attention deficit disorder) Chronic obstructive pulmonary disease PFTs 2010: 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 she with mild hypercarbia Ellen-Danlos syndrome Hyperglycemia with hemoglobin A1c of 5.2% May 2020 Lipedema Lipedema Lymphedema Morbid obesity with BMI of 70 and over, adult Obstructive sleep apnea on CPAP polysomnogram 2016 recommend CPAP of 20 Surgical History Surgical History History of tonsillectomy Family History Family History Father Hypertension Family history of elevated blood lipids Family history of cardiovascular disease Cerebrovascular accident Malignant neoplasm of prostate Sibling Hypertension Family history of coronary artery disease Diabetes mellitus Family history of elevated blood lipids Family history of cardiovascular disease Mother Hypertension Family history of elevated blood lipids Leukemia Social History Social History Social History: The patient quit smoking on 01/17/2020. The patient is now disabled. She used to work for [employer]. Surrogate decision maker: Daria Mccann, . Code status: Full code. Smoking packs per day: 2 Smoking cigarettes per day: 40.0 Years smoked: 28 Smoking pack-years: 56.00 Smoking status: Former smoker Tobacco type: cigarettes Second hand tobacco smoke exposure: No Smoking end date: 01/17/20 Alcohol intake: former Alcohol use details: rare Substance use: never Substance use type: does not use Additional living arrangements comments: Resides with her spouse and their 10-year-old twins (1 girl and 1 that is transgender) in [place]. 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
[2021-11-12] MEDS: NAPROXEN 500 MG TABLET PO (21:02)
--- NOTE | 2021-11-12 22:39 | PC.NURSE ---
@2100 called [facility] to request transport. ETA 0200 @0616 cancelled [facility].
--- NOTE | 2021-11-12 23:00 | PC.NURSE ---
Initially wtg for EMS to transport pt home, but after extended wait times, pt's arrives to take her home.
[2021-11-12 23:16] VITALS: BP 175/86; PULSE 105; RESP 24; TEMP 36.8; O2SAT 96
== END 2021-11-12 23:18 | disposition home or self-care (01) ==
PROVIDERS: Emergency Provider Emergency Medicine; PCP Family Medicine
DX: M23.92 Unspecified internal derangement of left knee (principal); L03.116 Cellulitis of left lower limb; L03.311 Cellulitis of abdominal wall; E66.01 Morbid (severe) obesity due to excess calories; Z68.45 Body mass index [BMI] 70 or greater, adult; J44.9 Chronic obstructive pulmonary disease, unspecified; Q79.60 Ehlers-Danlos syndrome, unspecified; I89.0 Lymphedema, not elsewhere classified; G47.33 Obstructive sleep apnea (adult) (pediatric); Z87.891 Personal history of nicotine dependence
CPT/HCPCS: 73562; 73590; 73610; 99284; A9270

== ENCOUNTER 2024-05-20 18:16 | Emergency (ER) | payer MEDICARE, SELFPAY ==
[2024-05-20 18:30] VITALS: BP 146/76; PULSE 100; RESP 16; TEMP 36.4; O2SAT 97
--- NOTE | 2024-05-20 22:48 | PC.NURSE ---
This RN attempted peripheral IV access and labs x3 with no success. VIGNESH Lovell to bedside to attempt.
[2024-05-20 22:58] LABS: Basophils Absolute Auto 0.1 K/mm3 (0.0-0.1); Basophils Percent Auto 0.5 % (0.2-1.2); Eosinophils Absolute Auto 0.1 K/mm3 (0-0.3); Hematocrit 38.6 % (37.0-47.0); Hemoglobin 12.2 g/dL (12.0-15.0); Immature Granulocyte Percent A 0.9 % (0-0.5); Mean Corpuscular HGB Conc 31.6 g/dl (32-36); Mean Corpuscular Hemoglobin 27.9 pg (26-34); Mean Corpuscular Volume 88.3 fl (80-100); Monocytes Absolute Auto 0.6 K/mm3 (0.1-0.6); Monocytes Percent Auto 5.3 % (2.6-8.5); Neutrophils Absolute Auto 8.4 K/mm3 (1.3-6.7); Neutrophils Percent Auto 75.3 % (45.5-73.1); Platelet Count Result 304 k/mm3 (150-375); Red Blood Count 4.37 M/mm3 (4.2-5.4); Red Cell Distribution Width 14.6 % (11.5-14.5); White Blood Count 11.2 K/mm3 (4.5-10.0)
[2024-05-20 23:05] LABS: Lactic Acid Reflex 1.5 mmol/L (0.7-2.0)
[2024-05-20 23:12] LABS: Alanine Aminotransferase 13 U/L (6-35); Albumin Level 4.2 g/dL (3.5-5.1); Alkaline Phosphatase 100 U/L (38-126); Anion Gap 4 mmol/L (4-12); Aspartate Amino Transferase 45 U/L (14-36); Bilirubin,Total 0.8 mg/dL (0.2-1.3); Blood Urea Nitrogen 11 mg/dL (7-17); Calcium 9.2 mg/dL (8.4-10.2); Carbon Dioxide 30 mmol/L (22-30); Chloride 103 mmol/L (98-107); Estimated CRCL calculation 163 ml/min; Estimated Glomerular Filt Rate > 60; Glucose 127 mg/dL (65-110); Potassium 4.1 mmol/L (3.4-5.0); Sodium 137 mmol/L (137-145)
--- NOTE | 2024-05-20 23:20 | ED_ITS ---
HPI - General Adult General Chief complaint: Skin/Abscess/Foreign Body Stated complaint: cellulitis Time Seen by Provider: 05/20/24 19:48 Source: patient Mode of arrival: wheelchair Limitations: no limitations History of Present Illness HPI narrative: 48-year-old with a history of morbid obesity presents to the ER with a complains of bilateral ear pain which is been ongoing for past 1 week she also states that she gets occasionally gets dizzy. Also complains of clear drainage from her left thigh. She denies any fever or chills. Related Data Allergies Allergy/AdvReac Type Severity Reaction Status Date / Time capsaicin Allergy Severe Difficulty Verified 05/20/24 18:17 Breathing; swelling adhesive Allergy Mild unknown Verified 05/20/24 18:17 prochlorperazine Allergy Mild unknown Verified 05/20/24 18:17 vancomycin AdvReac Hives Verified 05/20/24 18:17 Review of Systems 2 Review of Systems: All systems reviewed & are unremarkable except as noted in HPI and below Constitutional: Constitutional: Reports no additional constitutional complaints Eyes: Eyes: Reports no additional eye complaints ENT: Reports as per HPI Cardiovascular: Cardiovascular: Reports no additional cardiovascular complaints Respiratory: Respiratory: Reports no additional respiratory complaints Gastrointestinal: Gastrointestinal: Reports no additional gastrointestinal complaints Musculoskeletal: Musculoskeletal: Reports no additional musculoskeletal complaints Integumentary/Breasts: Skin/Breast: Reports as per HPI PMF Past Medical History Medical History Lipedema Hyperglycemia with hemoglobin A1c of 5.2% May 2020 ADD (attention deficit disorder) Obstructive sleep apnea on CPAP polysomnogram 2016 recommend CPAP of 20 Ellen-Danlos syndrome Morbid obesity with BMI of 70 and over, adult Lipedema Chronic obstructive pulmonary disease PFTs 2011: 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 The patient is now disabled. She used to work for [employer]. Surrogate decision maker: Daria Mccann, . Code status: Full code. Smoking packs per day: 2 Smoking cigarettes per day: 40.0 Years smoked: 28 Smoking pack-years: 56.00 Smoking status: Former smoker Tobacco type: cigarettes Second hand tobacco smoke exposure: No Smoking end date: 01/17/20 Alcohol intake: former Alcohol use details: rare Substance use: never Substance use type: does not use Living arrangements: with family Additional living arrangements comments: Resides with her spouse and their 10-year-old twins (1 girl and 1 that is transgender) in [place]. 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 Gender identity (if verbalized by the patient): Female Sexual Orientation (if Verbalized by the Patient): Lesbian, Mcgarry, or Homosexual Spiritual care concerns: No Agree to blood products: Yes Exam 2 Narrative: GENERAL: Morbid obesity, and in no acute distress. HEAD: Normocephalic, atraumatic. EYES: PERRLA and EOMI. ENT: Nares clear, no rhinorrhea or epistaxis. Mucous membranes moist. Both TMs are clear NECK: Supple. CHEST: Clear to auscultation. No respiratory distress. HEART: Regular rate and rhythm. No murmur heard. Normal peripheral pulses. ABDOMEN: Soft, nontender, nondistended, normal active bowel sounds. EXTREMITIES: Normal range of motion. No edema. There is no redness on the thigh or on the back SKIN: Warm, dry, no rash. NEURO: No focal deficits. Alert and oriented x3. PSYCH: Normal mood and affect. Course Course Emergency Course: Notified patient about her lab work. Advised her to take antibiotic as prescribed., follow-up with the primary doctor in case if she has high fevers Vital Signs Vital signs: Vital Signs Temperature 36.4 C L 05/20/24 18:30 Pulse Rate 100 05/20/24 18:30 Respiratory Rate 16 05/20/24 18:30 Blood Pressure 146/76 H 05/20/24 18:30 Pulse Oximetry 97 05/20/24 18:30 Oxygen Delivery Room Air 05/20/24 18:30 Temperature 36.4 C L 05/20/24 18:30 Pulse Rate 100 05/20/24 18:30 Respiratory Rate 16 05/20/24 18:30 Blood Pressure 146/76 H 05/20/24 18:30 Pulse Oximetry 97 05/20/24 18:30 Oxygen Delivery Room Air 05/20/24 18:30 Medical Decision Making Vital Signs Vital Signs: Vital Signs Temperature 36.4 C L 05/20/24 18:30 Pulse Rate 100 05/20/24 18:30 Respiratory Rate 16 05/20/24 18:30 Blood Pressure 146/76 H 05/20/24 18:30 Pulse Oximetry 97 05/20/24 18:30 Oxygen Delivery Room Air 05/20/24 18:30 Temperature 36.4 C L 05/20/24 18:30 Pulse Rate 100 05/20/24 18:30 Respiratory Rate 16 05/20/24 18:30 Blood Pressure 146/76 H 05/20/24 18:30 Pulse Oximetry 97 05/20/24 18:30 Oxygen Delivery Room Air 05/20/24 18:30 Lab Data 05/20/24 22:51 05/20/24 22:51 Labs: Lab Results 05/20/24 05/20/24 Range/Units 22:41 22:51 WBC 11.2 H (4.5-10.0) K/mm3 RBC 4.37 (4.2-5.4) M/mm3 Hgb 12.2 (12.0-15.0) g/dL Hct 38.6 (37.0-47.0) % MCV 88.3 (80-100) fl MCH 27.9 (26-34) pg MCHC 31.6 L (32-36) g/dl RDW 14.6 H (11.5-14.5) % Plt Count 304 (150-375) k/mm3 MPV 10.0 (7.4-10.4) fl Immature Gran % (Auto) 0.9 H (0-0.5) % Neut % (Auto) 75.3 H (45.5-73.1) % Lymph % (Auto) 17.0 L (18.3-44.2) % [place] % (Auto) 5.3 (2.6-8.5) % Eos % (Auto) 1.0 (0-4.4) % Baso % (Auto) 0.5 (0.2-1.2) % Lymph # (Auto) 1.90 (0.9-3.2) K/mm3 [place] # (Auto) 0.6 (0.1-0.6) K/mm3 Eos # (Auto) 0.1 (0-0.3) K/mm3 Baso # (Auto) 0.1 (0.0-0.1) K/mm3 Abs Immat Gran (auto) 0.10 H (0.00-0.031) K/mm3 Absolute Neuts (auto) 8.4 H (1.3-6.7) K/mm3 Absolute Nucleated RBC 0.000 (0.0-0.012) K/mm3 Nucleated RBC % 0.0 (0.0-0.2) % Sodium 137 (137-145) mmol/L Potassium 4.1 (3.4-5.0) mmol/L Chloride 103 (98-107) mmol/L Carbon Dioxide 30 (22-30) mmol/L Anion Gap 4 (4-12) mmol/L BUN 11 (7-17) mg/dL Creatinine 0.70 (0.7-1.0) mg/dL Estim Creat Clear Calc 163 ml/min Estimated GFR > 60 (59 - ) Glucose 127 H (65-110) mg/dL Lactic Acid 1.5 (0.7-2.0) mmol/L Calcium 9.2 (8.4-10.2) mg/dL Total Bilirubin 0.8 (0.2-1.3) mg/dL AST 45 H (14-36) U/L ALT 13 (6-35) U/L Alkaline Phosphatase 100 (38-126) U/L Total Protein 8.0 (6.3-8.2) g/dL Albumin 4.2 (3.5-5.1) g/dL Discharge Plan Discharge Clinical Impression: Acute ear pain, Cellulitis Patient Disposition: Home, Self-Care Condition: Stable Instructions: Cellulitis (ED) Patient Language: Arabic Prescriptions: New doxycycline hyclate 100 mg capsule 100 mg PO BID 7 Days Qty: 14 0RF No Action cephalexin 500 mg capsule 500 mg PO Q12H Qty: 20 0RF sulfamethoxazole-trimethoprim [Bactrim DS] 800-160 mg tablet 1 tablet PO Q12H Qty: 20 0RF naproxen 500 mg tablet 500 mg PO BID PRN (Reason: pain) Qty: 14 0RF Follow-up/Referrals: UNKNOWN,DOCTOR [Primary Care Provider] - Augustus Reese MD [Physician] - Time of Disposition: 23:27
[2024-05-21 00:24] VITALS: BP 152/90; PULSE 99; RESP 15; O2SAT 96
== END 2024-05-21 00:25 | disposition home or self-care (01) ==
PROVIDERS: Emergency Provider Family Medicine
DX: H92.03 Otalgia, bilateral (principal); L03.90 Cellulitis, unspecified; F98.8 Other specified behavioral and emotional disorders with onset usually occurring in childhood and adolescence; J44.9 Chronic obstructive pulmonary disease, unspecified; Q79.60 Ehlers-Danlos syndrome, unspecified; Z87.891 Personal history of nicotine dependence; E66.01 Morbid (severe) obesity due to excess calories; Z68.45 Body mass index [BMI] 70 or greater, adult
CPT/HCPCS: 36415; 80053; 83605; 85025; 99283

== ENCOUNTER 2024-12-03 19:32 | Emergency (ER) | payer MEDICARE, MEDICAID, SELFPAY ==
[2024-12-03 19:38] VITALS: PULSE 69; RESP 18; TEMP 36.9; O2SAT 94
--- OUTSIDE RECORDS SUMMARY | 2024-12-03 19:48 | XMS_ITS | Clinical Summary ---
Author Organization [facility] Address [address] [place] [id number] Care Team Providers Care Morgue Librarian Name Role Phone Jonatan Burnham MD Primary Care Provider [phone] Allergies Active Allergy Reactions Criticality Noted Date Comments Cayenne Shortness of breath, Swelling,Swollen tongue High 02/23/2023 Prochlorperazine Vancomycin Itching,Redness,Swelling Medium 02/23/2023 Medications No known medications Active Problems Problem Noted Date Diagnosed Date Obstructive sleep apnea 07/06/2023 Osteoarthritis of multiple joints 07/06/2023 BMI 70 and over, adult 02/23/2023 Surgical History Surgery Date Site/Laterality Comments TONSILLECTOMY Medical History Medical History Date Comments Arthritis COPD (chronic obstructive pulmonary disease) (HC C) Joint pain Morbid obesity (HCC) Sleep apnea Vitamin D deficiency Lymphedema Lipedema Family History Medical History Relation Name Comments Diabetes Brother 1 Roland Heart attack Brother 1 Roland Heart disease Brother 1 Roland Hypertension Brother 1 Roland Obesity Brother 1 Roland Heart attack Brother 2 Alex Heart disease Brother 2 Alex Hypertension Brother 2 Alex Arthritis Father Seferino Cancer Father Seferino Heart attack Father Seferino Heart disease Father Seferino Heart failure Father Seferino Hypertension Father Seferino Stroke Father Seferino Obesity Maternal Grandmother Ivett Arthritis Mother Ashly Cancer Mother Ashly Hypertension Mother Ashly Kidney disease Mother Ashly Obesity Mother Ashly Breast cancer Mother's Sister Alyx Miscarriages / Stillbirths Sister Lilliana Relation Name Status Comments Brother 1 Roland Brother 2 Alex Father Seferino Maternal Grandmother Ivtet Mother Ashly Mother's Sister Alyx Sister Lilliana Social History Tobacco Use Types Packs/Day Years Used Date Smoking Tobacco: Former Cigarettes Tobacco Cessation:Counseling Given: Not Answered AUDIT-C Answer Date Recorded Frequency of Alcohol Consumption Not on file 02/23/2023 Q2: How many drinks containi ng alcohol do you have on a typical day when you are drinking? 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 Gender Identity Female 02/22/2023 10:59 AM CDT Sexual Orientation Lesbian 02/22/2023 10 :59 AM CDT Obstetrics History Last Filed Vital Signs Vital Sign Reading Time Taken Comments Blood Pressure 141/87 03/28/2023 11:18 AM CDT Pulse 91 03/28/2023 11:18 AM CDT Temperature - - Respiratory Rate - - Oxygen Saturation 97% 03/28/2023 11: 18 AM CDT Inhaled Oxygen Concentration - - Weight 209.8 kg (462 lb 8 oz) 08/27/2023 3:[address] PM [address]T weight on [address] office scale Height 162.6 cm (5' 4) 08/27/2023 3:09 PM CDT Body Mass Index 79.39 08/27/2023 3:09 PM CDT Plan of Treatment Health Maintenance Due Date Last Done Comments Breast Cancer Screening-Mammogram 1976 Cervical Cancer Screening 1976 Colon Cancer Screening-Colonoscopy 1976 Depression Screening 1976 Hepatitis C Screening 1976 Hepatitis B Screening 1994 Regular Well Visit/Exam 18-64 1994 Covid-19 Vaccine (3 - 2023-2 5 season) 2024 08/06/2020, 07/16/2020 Influenza Vaccine (Season Ended) 2025 05/05/2019 DTaP/Tdap/Td Vaccine (2 - Td or Tdap) 05/05/2029 05/05/2019 Pneumococcal vaccine <65 Aged Out No longer eligible based on patient's age to complete this topic Insurance [facility] MEDICARE MEDICARE Care Teams Morgue Librarian Relationship Specialty Start Date End Date Jonatan Burnham MD PCP - General Family Medicine 12/18/22
--- OUTSIDE RECORDS SUMMARY | 2024-12-03 19:48 | XMS_ITS | Clinical Summary ---
Author Organization [facility] [address] Address [address] [place] [id number] Care Team Providers Care Leakage Tester Name Role Phone Unavailable Primary Care Provider Unavailabl e Immunizations Immunization Administration Dates Next Due (PFIZER)(12 YR UP) COVID-19 VACCINE - EMERGENCY USE AUTHORIZATION, MRNA, [id number](PF) 30 MCG/0.3 ML IM SUSP 08/06/2020,07/16/2020 Social History Tobacco Use Types Packs/Day Years Used Date Smoking Tobacco: Never Assessed Comments Unknown Sex and Gender Information Value Date Recorded Sex Assigned at Not on file Legal Sex Female 10:48 PM CDT Gender Identity Not on file Sexual Orientation Not on file Plan of Treatment Health Maintenance Due Date Last Done Comments DTAP/TDAP/TD VACCINES (1 - Tdap) 08/29/1995 HEPATITIS B VACCINES (1 of 3 - 19+ 3-dose series) 08/29/1995 HPV/Cotest (21-29) 1997 CERVICAL CANCER SCREENING 2006 HPV/Cotest (30-65) 2006 PAP SMEAR 2006 BREAST CANCER SCREENING 2016 COLORECTAL SCREENING 2021 Colorectal Cancer Screening 2021 FIT-DNA Q 3 years 2021 FIT/FOBT Q 1 year 2021 Flex Sig/CT Colonography Q 5 years 2021 COVID-19 Vaccine ( season) 01/27/202404/2021, 07/16/2020 INFLUENZA VACCINE (#1) 2024
--- OUTSIDE RECORDS SUMMARY | 2024-12-03 19:48 | XMS_ITS | Referral Summary ---
Author Organization [facility] Address [address] [place] [id number] Care Team Providers Care Float Nurse Name Role Phone Jonatan Burnham MD Primary Care Provider [phone] Allergies Active Allergy Reactions Criticality Noted Date Comments Cay[place] Shortness of breath, Swelling,Swollen tongue High 02/23/2023 Prochlorperazine Vancomycin Itching,Redness,Swelling Medium 02/23/2023 Medications No known medications Active Problems Problem Noted Date Diagnosed Date Obstructive sleep apnea 07/06/2023 Osteoarthritis of multiple joints 07/06/2023 BMI 70 and over, adult 02/23/2023 Social History Tobacco Use Types Packs/Day Years [...] on file 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
--- NOTE | 2024-12-03 20:14 | ED_ITS ---
HPI - General Adult General Chief complaint: Back Pain/Injury Stated complaint: back pain Time Seen by Provider: 12/03/24 19:32 History of Present Illness HPI narrative: 49-year-old female present to the emergency department for evaluation for right flank pain. Describes right flank pain that radiates down to her groin. Patient reports the pain has been ongoing for the last 2 days. Patient has no prior history of kidney stones. Related Data Allergies Allergy/AdvReac Type Severity Reaction Status Date / Time capsaicin Allergy Severe Difficulty Verified 05/20/24 18:17 Breathing; swelling adhesive Allergy Mild unknown Verified 05/20/24 18:17 prochlorperazine Allergy Mild unknown Verified 05/20/24 18:17 vancomycin AdvReac Hives Verified 05/20/24 18:17 Review of Systems 2 Review of Systems: All systems reviewed & are unremarkable except as noted in HPI and below PMFSH Past Medical History Medical History Lipedema Hyperglycemia with hemoglobin A1c of 5.2% May 2020 ADD (attention deficit disorder) Obstructive sleep apnea on CPAP polysomnogram 2016 recommend CPAP of 20 Ellen-Danlos syndrome Morbid obesity with BMI of 70 and over, adult Lipedema Chronic obstructive pulmonary disease PFTs 2011: 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 The patient is now disabled. She used to work for [employer]. Surrogate decision maker: Daria Mccann, . Code status: Full code. Smoking packs per day: 2 Smoking cigarettes per day: 40.0 Years smoked: 28 Smoking pack-years: 56.00 Smoking status: Former smoker Tobacco type: cigarettes Second hand tobacco smoke exposure: No Smoking end date: 01/17/20 Alcohol intake: former Alcohol use details: rare Substance use: never Substance use type: does not use Living arrangements: with family Additional living arrangements comments: Resides with her spouse and their 10-year-old twins (1 girl and 1 that is transgender) in [place]. 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 Gender identity (if verbalized by the patient): Female Sexual Orientation (if Verbalized by the Patient): Lesbian, Mcgarry, or Homosexual Spiritual care concerns: No Agree to blood products: Yes Exam 2 Narrative: APPEARANCE: Well appearing, no pain, no distress, well-nourished. HEAD: normocephalic, atraumatic. EYES: PERRLA/EOMI, conjunctivae clear. NOSE: Normal no drainage EARS:TMS clear with good light reflex. THROAT: Pharynx clear, no exudate. NECK: Supple. No adenopathy, no masses. RESPIRATORY: Airway patent, respirations nonlabored. Clear to auscultation bilaterally, no rales, rhonchi, wheezing. CARDIOVASCULAR: Regular rate and rhythm without murmurs rubs or gallops. ABDOMINAL: Soft, nontender, nondistended, normal bowel sounds MUSCULOSKELETAL: Right CVA tenderness to palpation NEURO: Alert. Cranial nerves II through XII intact. Good gait. Good coordination SKIN: Warm, dry. Normal Color Course Vital Signs Vital signs: Vital Signs Temperature 98.5 F 12/03/24 19:38 Pulse Rate 69 12/03/24 19:38 Respiratory Rate 18 12/03/24 19:38 Pulse Oximetry 94 12/03/24 19:38 Oxygen Delivery Room Air 12/03/24 19:38 Temperature 98.4 F 12/03/24 22:53 Pulse Rate 69 12/03/24 22:53 Respiratory Rate 18 12/03/24 22:53 Blood Pressure 146/80 H 12/03/24 22:53 Pulse Oximetry 93 12/03/24 22:53 Oxygen Delivery Room Air 12/03/24 19:38 Medical Decision Making MDM Narrative Medical decision making narrative: 41-year-old female present to the emergency department for evaluation for right flank pain. Patient is afebrile but does have a leukocytosis 11.9 hemoglobin 11.4. UA was negative for infection. No acute abnormalities on the patient's CMP. Low concern for infected stone but patient's exam is concerning for ureteral calculi. Patient is unable to get a CT scan secondary to body habitus. Patient was provided medications for pain control and addition to Flomax to help pass the stone. Patient was provided outpatient follow-up with Urology. Patient was comfortable with plan for discharge and close follow-up. At time of last evaluation patient states he did feel improved was comfortable the plan to be discharged home. All questions were addressed. Differential Diagnosis Differential Diagnosis: Colitis, diverticulitis, UTI, ureteral calculi Vital Signs Vital Signs: Vital Signs Temperature 98.5 F 12/03/24 19:38 Pulse Rate 69 12/03/24 19:38 Respiratory Rate 18 12/03/24 19:38 Pulse Oximetry 94 12/03/24 19:38 Oxygen Delivery Room Air 12/03/24 19:38 Temperature 98.4 F 12/03/24 22:53 Pulse Rate 69 12/03/24 22:53 Respiratory Rate 18 12/03/24 22:53 Blood Pressure 146/80 H 12/03/24 22:53 Pulse Oximetry 93 12/03/24 22:53 Oxygen Delivery Room Air 12/03/24 19:38 Lab Data 12/03/24 20:09 12/03/24 20:09 Labs: Lab Results 12/03/24 12/03/24 12/03/24 Range/Units 20:09 20:34 21:25 WBC 11.9 H (4.5-10.0) K/mm3 RBC 4.10 L (4.2-5.4) M/mm3 Hgb 11.4 L (12.0-15.0) g/dL Hct 36.3 L (37.0-47.0) % MCV 88.5 (80-100) fl MCH 27.8 (26-34) pg MCHC 31.4 L (32-36) g/dl RDW 14.7 H (11.5-14.5) % Plt Count 255 (150-375) k/mm3 MPV 9.6 (7.4-10.4) fl Immature Gran % (Auto) 0.7 H (0-0.5) % Neut % (Auto) 82.0 H (45.5-73.1) % Lymph % (Auto) 12.1 L (18.3-44.2) % Tate % (Auto) 4.6 (2.6-8.5) % Eos % (Auto) 0.2 (0-4.4) % Baso % (Auto) 0.4 (0.2-1.2) % Lymph # (Auto) 1.44 (0.9-3.2) K/mm3 Tate # (Auto) 0.6 (0.1-0.6) K/mm3 Eos # (Auto) 0.0 (0-0.3) K/mm3 Baso # (Auto) 0.1 (0.0-0.1) K/mm3 Abs Immat Gran (auto) 0.08 H (0.00-0.031) K/mm3 Absolute Neuts (auto) 9.8 H (1.3-6.7) K/mm3 Absolute Nucleated RBC 0.000 (0.0-0.012) K/mm3 Nucleated RBC % 0.0 (0.0-0.2) % Sodium 136 L (137-145) mmol/L Potassium 4.6 (3.4-5.0) mmol/L Chloride 101 (98-107) mmol/L Carbon Dioxide 28 (22-30) mmol/L Anion Gap 7 (4-12) mmol/L BUN 14 (7-17) mg/dL Creatinine 0.95 (0.7-1.0) mg/dL Estim Creat Clear Calc 110 ml/min Estimated GFR > 60 (59 - ) Glucose 121 H (65-110) mg/dL Calcium 9.2 (8.4-10.2) mg/dL Total Bilirubin 0.6 (0.2-1.3) mg/dL AST 38 H (14-36) U/L ALT 18 (6-35) U/L Alkaline Phosphatase 85 (38-126) U/L Total Protein 8.2 (6.3-8.2) g/dL Albumin 4.3 (3.5-5.1) g/dL Urine Color Yellow (Yellow) Urine Appearance Clear (Clear) Urine pH 5.5 (5.0-9.0) Ur Specific [place] 1.008 (1.001-1.035) Urine Protein Negative (Negative) mg/dL Urine Glucose (UA) Negative (Negative) mg/dL Urine Ketones Negative (Negative) mg/dL Ur Blood (Man) 1+ H (Negative) Urine Nitrate Negative (Negative) Urine Bilirubin Negative (Negative) Urine Urobilinogen 0.2 (<2.0) mg/dL Leukocyte Esterase Rfl Negative (Negative) WILDA/UL Urine RBC 0-2 (0-2) /hpf Urine WBC 0-5 (0-3) /hpf Ur Squamous Epith Cells None seen (Few) /hpf Urine Bacteria None seen /hpf Urine Casts 0-2 POC Urine HCG, Qual Negative (Negative) 12/03/24 Range/Units 21:25 WBC (4.5-10.0) K/mm3 RBC (4.2-5.4) M/mm3 Hgb (12.0-15.0) g/dL Hct (37.0-47.0) % MCV (80-100) fl MCH (26-34) pg MCHC (32-36) g/dl RDW (11.5-14.5) % Plt Count (150-375) k/mm3 MPV (7.4-10.4) fl Immature Gran % (Auto) (0-0.5) % Neut % (Auto) (45.5-73.1) % Lymph % (Auto) (18.3-44.2) % Tate % (Auto) (2.6-8.5) % Eos % (Auto) (0-4.4) % Baso % (Auto) (0.2-1.2) % Lymph # (Auto) (0.9-3.2) K/mm3 Tate # (Auto) (0.1-0.6) K/mm3 Eos # (Auto) (0-0.3) K/mm3 Baso # (Auto) (0.0-0.1) K/mm3 Abs Immat Gran (auto) (0.00-0.031) K/mm3 Absolute Neuts (auto) (1.3-6.7) K/mm3 Absolute Nucleated RBC (0.0-0.012) K/mm3 Nucleated RBC % (0.0-0.2) % Sodium (137-145) mmol/L Potassium (3.4-5.0) mmol/L Chloride (98-107) mmol/L Carbon Dioxide (22-30) mmol/L Anion Gap (4-12) mmol/L BUN (7-17) mg/dL Creatinine (0.7-1.0) mg/dL Estim Creat Clear Calc ml/min Estimated GFR (59 - ) Glucose (65-110) mg/dL Calcium (8.4-10.2) mg/dL Total Bilirubin (0.2-1.3) mg/dL AST (14-36) U/L ALT (6-35) U/L Alkaline Phosphatase (38-126) U/L Total Protein (6.3-8.2) g/dL Albumin (3.5-5.1) g/dL Urine Color (Yellow) Urine Appearance (Clear) Urine pH (5.0-9.0) Ur Specific [place] (1.001-1.035) Urine Protein (Negative) mg/dL Urine Glucose (UA) (Negative) mg/dL Urine Ketones (Negative) mg/dL Ur Blood (Man) (Negative) Urine Nitrate (Negative) Urine Bilirubin (Negative) Urine Urobilinogen (<2.0) mg/dL Leukocyte Esterase Rfl (Negative) WILDA/UL Urine RBC (0-2) /hpf Urine WBC (0-3) /hpf Ur Squamous Epith Cells (Few) /hpf Urine Bacteria /hpf Urine Casts POC Urine HCG, Qual Negative (Negative) Discharge Plan Discharge Clinical Impression: Calculus, ureteral Patient Disposition: Home Condition: Stable Additional Instructions: [place] for pain control. Zofran for nausea control. Flomax to help pass the stone. Have close follow-up with you urology. If you have any worsening symptoms then please call or return to the emergency department. Patient Language: Nicaraguan Prescriptions: New hydrocodone-acetaminophen 5-325 mg tablet 1 tablet PO Q12H PRN (Reason: pain) Qty: 14 0RF tamsulosin [Flomax] 0.4 mg capsule 0.4 mg PO DAILY 14 Days Qty: 14 0RF ondansetron 4 mg tablet,disintegrating 4 mg PO Q8H PRN (Reason: nausea and vomiting) Qty: 14 0RF No Action cephalexin 500 mg capsule 500 mg PO Q12H Qty: 20 0RF sulfamethoxazole-trimethoprim [Bactrim DS] 800-160 mg tablet 1 tablet PO Q12H Qty: 20 0RF naproxen 500 mg tablet 500 mg PO BID PRN (Reason: pain) Qty: 14 0RF doxycycline hyclate 100 mg capsule 100 mg PO BID 7 Days Qty: 14 0RF Follow-up/Referrals: Roland Noel MD [Physician] - UNKNOWN,DOCTOR [Primary Care Provider] -
[2024-12-03 20:16] LABS: Hematocrit 36.3 % (37.0-47.0); Hemoglobin 11.4 g/dL (12.0-15.0); Immature Granulocyte Percent A 0.7 % (0-0.5); Lymphocytes Absolute Auto 1.44 K/mm3 (0.9-3.2); Mean Corpuscular HGB Conc 31.4 g/dl (32-36); Mean Corpuscular Hemoglobin 27.8 pg (26-34); Mean Corpuscular Volume 88.5 fl (80-100); Nucleated Red Blood Cells Absolute Auto 0.000 K/mm3 (0.0-0.012); Nucleated Red Blood Cells Perc 0.0 % (0.0-0.2); Platelet Count Result 255 k/mm3 (150-375); Red Blood Count 4.10 M/mm3 (4.2-5.4); White Blood Count 11.9 K/mm3 (4.5-10.0)
[2024-12-03] MEDS: HYDROmorphone HCL INJ (*CRX) 2 MG/ML VIAL 1 MG IV PUSH (20:22)
[2024-12-03] MEDS: ONDANSETRON INJ 4 MG/2 ML VIAL IV PUSH (20:22)
[2024-12-03 20:25] LABS: Alanine Aminotransferase 18 U/L (6-35); Albumin Level 4.3 g/dL (3.5-5.1); Alkaline Phosphatase 85 U/L (38-126); Anion Gap 7 mmol/L (4-12); Aspartate Amino Transferase 38 U/L (14-36); Bilirubin,Total 0.6 mg/dL (0.2-1.3); Blood Urea Nitrogen 14 mg/dL (7-17); Calcium 9.2 mg/dL (8.4-10.2); Carbon Dioxide 28 mmol/L (22-30); Chloride 101 mmol/L (98-107); Estimated CRCL calculation 110 ml/min; Estimated Glomerular Filt Rate > 60; Glucose 121 mg/dL (65-110); Potassium 4.6 mmol/L (3.4-5.0); Sodium 136 mmol/L (137-145); Total Protein 8.2 g/dL (6.3-8.2)
[2024-12-03 20:48] LABS: Add Urine Microscopic? YES; Appearance Urine Clear (Clear); Glucose Urine UA Negative (Negative); Leukocyte Esterase Ur Negative LEU/UL (Negative); Nitrate Urine Negative (Negative); Non Pathogenic Casts 0-2; Specific Grav Ur 1.008 (1.001-1.035)
[2024-12-03 21:27] LABS: BEDSIDEPREGUCG Negative (Negative)
[2024-12-03] MEDS: HYDROcodone/acetaminophen (*CRX) 5-325 MG TABLET 1 TAB PO (22:06)
[2024-12-03] MEDS: TAMSULOSIN HCL 0.4 MG CAPSULE PO (22:09)
[2024-12-03 22:53] VITALS: BP 146/80; PULSE 69; RESP 18; TEMP 36.9; O2SAT 93
== END 2024-12-03 22:54 | disposition home or self-care (01) ==
PROVIDERS: Emergency Provider Emergency Medicine
DX: N20.1 Calculus of ureter (principal); J44.9 Chronic obstructive pulmonary disease, unspecified; E66.01 Morbid (severe) obesity due to excess calories; Z68.45 Body mass index [BMI] 70 or greater, adult; I89.0 Lymphedema, not elsewhere classified; G47.33 Obstructive sleep apnea (adult) (pediatric); Q79.60 Ehlers-Danlos syndrome, unspecified; F98.8 Other specified behavioral and emotional disorders with onset usually occurring in childhood and adolescence; Z87.891 Personal history of nicotine dependence
CPT/HCPCS: 36415; 80053; 81001; 81025; 85025; 96374; 96375; 99284; A9270; J1171; J2405